=== PATIENT | female | born 1985 | race Two or more races ===

== ENCOUNTER 2016-05-15 20:06 | Emergency (ER) | payer BC, MEDICAID, OTHER ==
[~2016-05-15 20:06] MED LIST: OXYB5TAB4 OR; VICO5TAB OR
[2016-05-15] MEDS ORDERED: KETOROLAC 30 MG/ML VIAL (J1885) As Ordered ONE (20:42)
[2016-05-15] MEDS ORDERED: ONDANSETRON 4MG/2ML VIAL (J2405) As Ordered ONE (20:42)
[2016-05-15 20:45] LABS: CONTROL LINE UCG INT CTR LINE PRESENT
[2016-05-15 21:07] LABS: BASO % 0.5 % (0.0-1.0); EOS # 0.6 K/mm3 (0.0-0.50); EOS % 6.8 % (0.0-3.0); LARGE UNSTAINED CELL # 0.3 K/mm3 (0.0-0.4); LARGE UNSTAINED CELL % 3.4 % (0.0-4.0); LYMPH # 3.1 K/mm3 (1.5-6.5); LYMPH % 34.1 % (24.0-44.0); MEAN CORPUSCULAR HEMOGLOBIN 31.9 pg (27.0-33.0); MEAN CORPUSCULAR HGB CONC 35.6 g/dl (32.0-36.5); MEAN CORPUSCULAR VOLUME 89.6 fl (80.0-96.0); MONO # 0.7 K/mm3 (0.0-0.8); MONO % 7.5 % (0.0-5.0); NEUTROPHILS # 4.3 K/mm3 (1.8-7.7); NEUTROPHILS % 47.7 % (36.0-66.0); PLATELET COUNT, AUTOMATED 302 k/mm3 (150-450); RED CELL DISTRIBUTION WIDTH 12.2 % (11.5-14.5)
[2016-05-15 21:26] LABS: ALBUMIN 3.9 GM/DL (3.2-5.2); ALBUMIN/GLOBULIN RATIO 1.11 (1.00-1.93); ALKALINE PHOSPHATASE 74 U/L (45-117); ALT/SGPT 31 U/L (12-78); ANION GAP 8 MEQ/L (8-16); AST/SGOT 23 U/L (15-37); BILIRUBIN,DIRECT < 0.1 MG/DL (0.0-0.2); BILIRUBIN,TOTAL 0.3 MG/DL (0.2-1.0); BLOOD UREA NITROGEN 14 MG/DL (7-18); CALCIUM LEVEL 8.9 MG/DL (8.5-10.1); CARBON DIOXIDE LEVEL 28 MEQ/L (21-32); CHLORIDE LEVEL 106 MEQ/L (98-107); CREATININE FOR GFR 0.92 MG/DL (0.55-1.02); GLOMERULAR FILTRATION RATE > 60.0 (>60); GLUCOSE, FASTING 128 MG/DL (70-105); SODIUM LEVEL 142 MEQ/L (136-145); TOTAL PROTEIN 7.4 GM/DL (6.4-8.2)
[2016-05-15] MEDS ORDERED: MORPHINE 4 MG/ML 1ML SYRINGE As Ordered ONE (21:29)
[2016-05-15] MEDS ORDERED: TAMSULOSIN 0.4 MG CAP As Ordered ONE (21:29)
[2016-05-15] MEDS ORDERED: HYDROmorphone HCL 1 MG/ML SYRINGE (J1170) As Ordered ONE (22:18)
[2016-05-15] MEDS ORDERED: OXYCODONE/APAP 5MG/325MG(BULK) 1 TAB TAB As Ordered ONE (22:43)
[2016-05-15] MEDS ORDERED: ONDANSETRON 4 MG ORAL DISINTEGRATING TAB (S0181) As Ordered ONE (22:43)
--- NOTE | 2016-05-15 22:54 | EDDOCDS ---
Physician Documentation [facility] Name: Olive Peterson Age: 30 yrs Sex: Female : 1985 Arrival Date: 05/15/2016 Time: 20:06 Bed I7 Private MD: Anusha Tan M. Disposition: 05/15/16 22:41 Discharged to Home/Self Care. Impression: Calculus of ureter - distal right ureter, 3mm . - Condition is Stable. - Discharge Instructions: Kidney Stones. - Prescriptions for Percocet 5- 325 mg Oral Tablet - take 1 tablet by ORAL route every 6 hours As needed MDD: 4 tabs; 20 tablet. Flomax 0.4 mg Oral Capsule, Sust. Release 24 hr - take 1 capsule by ORAL route once daily 1/2 hour following the same meal each day; 30 capsule. ZOFRAN ODT 4 mg - dissolve 1 tablet by ORAL route 4 times per day As needed do not chew, do not swallow whole; 10 tablet. - Work Release Form - 2 day, Medication Reconciliation, Local Pharmacy Hours form. - Follow up: Meet Levin; When: Call to arrange an appointment; Reason: Recheck today's complaints, Continuance of care. - Problem is new. - Symptoms are unchanged. Historical: - Allergies: no known allergies; - Home Meds: 1. multivitamin Oral tab daily - PMHx: Kidney stones; PCOS; - PSHx: Lithotripsy; - Social history: Smoking status: Patient uses tobacco products, light tobacco smoker. No barriers to communication noted, The patient speaks fluent [place], Speaks appropriately for age. - Family history: Not pertinent. - : The pt / caregiver states he / she is not on anticoagulants. Home medication list is obtained from the patient. 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 9 in. (175.26 cm); Pain 10/10; 21:58 BP 145 / 108; Pulse 99; Resp 18; Temp 97.9; Pulse Ox 92% ; slm 22:50 BP 166 / 97; Pulse 92; Resp 18; Temp 98.5; Pulse Ox 93% ; Pain 4/10; slm 22:50 Pain 4/10; slm 20:07 Body Mass Index 40.61 (124.74 kg, 175.26 cm) [facility] MDM: 20:11 CBC with Diff Ordered. EDMS 20:11 MED Profile Ordered. EDMS 20:11 Urinalysis Ordered. EDMS 20:11 Urine Culture Ordered. EDMS 20:11 CT ABD & PELVIS: No Contrast Ordered. EDMS 20:32 IV Saline Lock ordered. mo1 20:32 NS 0.9% 1000 ml IV at bolus once ordered. mo1 20:32 Ondansetron 4 mg IVP once ordered. mo1 20:32 ketorolac 30 mg IVP once ordered. mo1 20:33 UCG- In Lab Ordered. EDMS 20:37 LIVER PROFILE Ordered. EDMS 21:03 UCG- In Lab Reviewed. mo1 21:04 Urinalysis Reviewed. mo1 21:21 morphine 4 mg IVP once ordered. mo1 21:21 Tamsulosin Extended Release 24 hour Capsule 0.4 mg PO once ordered. mo1 21:39 LIVER PROFILE Reviewed. mo1 21:40 MED Profile Reviewed. mo1 21:40 CBC with Diff Reviewed. mo1 22:11 Dilaudid - HYDROmorphone 1 mg IVP once ordered. mo1 22:40 oxyCODONE-acetaminophen 4 pack 5 mg-325 mg 1 packets PO once; Dispense with pt, take as mo1 per instruction on package ordered. 22:40 Ondansetron ODT Oral Disintegrating Tablet 4 mg PO once; [please give to go home] mo1 ordered. Administered Medications: 20:47 Drug: Ondansetron 4 mg [ondansetron HCl 2 mg/mL intravenous solution (2 mL)] Route: mcp IVP; Site: right antecubital; 20:47 Drug: ketorolac 30 mg [ketorolac 30 mg/mL (1 mL) injection solution (1 mL)] Route: IVP; mcp Site: right antecubital; 20:48 Drug: NS 0.9% 1000 ml [sodium chloride 0.9 % intravenous solution] Route: IV; Rate: mcp bolus; Site: right antecubital; 22:52 Follow up: IV Status: Completed infusion slm 21:34 Drug: morphine 4 mg [morphine 4 mg/mL intravenous cartridge (1 mL)] Route: IVP; Site: [facility] right antecubital; 21:34 Drug: Tamsulosin 0.4 mg [tamsulosin 0.4 mg capsule (1 caps)] Route: PO; mcp 22:23 Drug: Dilaudid - HYDROmorphone 1 mg [hydromorphone 1 mg/mL injection syringe (1 mL)] [facility] [place]: [place]P; Site: right antecubital; 22:50 Follow up: Pain 06/29 Adult slm 22:49 Drug: oxyCODONE-acetaminophen 4 pack 1 packets [oxycodone-acetaminophen 5 mg-325 mg slm tablet (1 tabs)] {Co-Signature: [facility] (Marnie Sainz RN).} Route: PO; 22:49 Drug: Ondansetron ODT 4 mg [ondansetron 4 mg disintegrating tablet (1 tabs)] {Note: slm home use.} Route: PO; Signatures: Dispatcher [employer] EDFaustina Curiel RN RN joKendrick Nevarez PA PA mo1 Josefina Fernandes,LEARN TO SWIM INSTRUCTOR LEARN TO SWIM INSTRUCTOR Marnie Campos RN, mcp, Mandy RN [facility] Marnie Sainz RN [facility] The chart was reviewed and I authenticate all verbal orders and agree with the evaluation and treatment provided.Corrections: (The following items were deleted from the chart) 20:37 20:33 LIVER PROFILE+LAB ordered. EDMS EDMS MTDD
--- NOTE | 2016-05-15 22:54 | EDDOCDS ---
Nurse's Notes [facility] Name: Olive Peterson Age: 30 yrs Sex: Female : 1985 Arrival Date: 05/15/2016 Time: 20:06 Bed I7 / 29 Private MD: Anusha Tan M. Diagnosis: Calculus of ureter-distal right ureter, 3mm Presentation: 05/15 20:14 Presenting complaint: Patient states: right flank and abdominal pain since yesterday. jo3 Has been getting progressively worse. Acute neurological deficits are not present. Mechanism of Injury: No Mechanism of Injury. Adult Sepsis Screening: The patient does not have new or worsening altered mentation. Patient's respiratory rate is less than 22. Systolic blood pressure is greater than 100. Patient has a qSOFA score of 0- Negative Sepsis Screen. Suicide/Homicide risk assessment- the patient denies having any suicidal and/or homicidal ideations and does not present with any other emotional, behavioral or mental health complaints. Status: Patient is not a client services administrator or dependent. Transition of care: patient was not received from another setting of care. 20:14 Acuity: MYNOR Level 3 jo3 20:14 Method Of Arrival: Walkin/Carried/Asstd jo3 Triage Assessment: 20:15 General: Appears uncomfortable, Behavior is cooperative, drowsy, pleasant. Pain: Pain jo3 currently is 10 out of 10 on a pain scale. HIV screening NA for this visit Offered previously. Neurological: Level of Consciousness is awake, alert, Oriented to person, place, time. Respiratory: Airway is patent Respiratory effort is even, unlabored. Derm: Skin is pink, warm & dry. 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 multivitamin Oral tab daily - PMHx: Kidney stones; PCOS; - PSHx: Lithotripsy; - Social history: Smoking status: Patient uses tobacco products, light tobacco smoker. No barriers to communication noted, The patient speaks fluent German, Speaks appropriately for age. - Family history: Not pertinent. - : The pt / caregiver states he / she is not on anticoagulants. Home medication list is obtained from the patient. 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 Screenin:48 Screening information is obtained from the patient. Fall risk: No risks identified. mcp Assistance ADL's: requires no assistance with activities of daily living. Abuse/DV Screen: The patient / caregiver reports he/she is: not in a situation that causes fear, pain or injury. Nutritional screening: No deficits noted. Advance Directives: There is no active DNR order. home support is adequate. Assessment: 20:48 General: Appears uncomfortable, Behavior is cooperative, crying. Pain: Location: right mcp flank Pain currently is 10 out of 10 on a pain scale. Neurological: No deficits noted. Respiratory: Airway is patent Respiratory effort is even, unlabored. Derm: Skin is pink, warm & dry. Musculoskeletal: Circulation, motion, and sensation intact. 22:51 Reassessment: Patient appears in no apparent distress at this time. Patient states [facility] symptoms have improved. Vital Signs: 20:07 BP 162 / 118; Pulse 122; Resp 18; Temp 99; Pulse Ox 94% ; Weight 124.74 kg; Height 5 m ft. 9 in. (175.26 cm); Pain 10/10; 21:58 BP 145 / 108; Pulse 99; Resp 18; Temp 97.9; Pulse Ox 92% ; slm 22:50 BP 166 / 97; Pulse 92; Resp 18; Temp 98.5; Pulse Ox 93% ; Pain 4/10; slm 22:50 Pain 4/10; slm 20:07 Body Mass Index 40.61 (124.74 kg, 175.26 cm) [facility] Vitals: 20:07 Log In Time: May 15, 2016 at 20:07. [facility] ED Course: 20:06 Patient visited by Pati Partida, Manager Program. [facility] 20:06 Anusha Tan is Private Physician. jl 20:06 Patient moved to Waiting jlm 20:08 Patient moved to Pre RCE jlm 20:14 Triage Initiated jo3 20:16 Patient visited by Faustina Tatum RN. jo3 20:18 Kendrick Vieira PA is PHCP. mo1 20:18 Phillip Chong DO is Attending Physician. mo1 20:18 Patient moved to jo3 20:19 Patient visited by Kendrick Vieira PA. mo1 20:26 Urinalysis Sent. jb5 20:26 Urine Culture Sent. jb5 20:41 MED Profile Sent. jb5 20:41 CBC with Diff Sent. jb5 20:44 LIVER PROFILE Sent. jb5 20:49 Patient visited by Marnie Sainz RN. [facility] 20:49 The patient / caregiver is instructed regarding the plan of care and ED course. Patient [facility] has correct armband on for positive identification. Placed in gown. Bed in low position. Call light in reach. Adult w/ patient. 20:49 Inserted saline lock: 20 gauge in right antecubital area and blood collected. The [facility] patient tolerated the procedure well. Labs drawn. (by ED staff). Sent per order to lab. 21:54 Patient visited by Yoli Vega PCA. jb5 22:41 Meet Levin is Referral Physician. [facility] 22:50 Josefina Fernandes LPN is Primary Nurse. slm 22:51 Discontinued lock intact, bleeding controlled, pressure dressing applied, No slm redness/swelling at site. No procedures done that require assistance. 22:52 Patient visited by Josefina Fernandes LPN. slm Administered Medications: 20:47 Drug: Ondansetron 4 mg [ondansetron HCl 2 mg/mL intravenous solution (2 mL)] Route: mcp IVP; Site: right antecubital; 20:47 Drug: ketorolac 30 mg [ketorolac 30 mg/mL (1 mL) injection solution (1 mL)] Route: IVP; [facility] Site: right antecubital; 20:48 Drug: NS 0.9% 1000 ml [sodium chloride 0.9 % intravenous solution] Route: IV; Rate: mcp bolus; Site: right antecubital; 22:52 Follow up: IV Status: Completed infusion sl 21:34 Drug: morphine 4 mg [morphine 4 mg/mL intravenous cartridge (1 mL)] Route: IVP; Site: [facility] right antecubital; 21:34 Drug: Tamsulosin 0.4 mg [tamsulosin 0.4 mg capsule (1 caps)] Route: PO; [facility] 22:23 Drug: Dilaudid - HYDROmorphone 1 mg [hydromorphone 1 mg/mL injection syringe (1 mL)] [facility] [place]: [place]P; Site: right antecubital; 22:50 Follow up: Pain 06/29 Adult slm 22:49 Drug: oxyCODONE-acetaminophen 4 pack 1 packets [oxycodone-acetaminophen 5 mg-325 mg slm tablet (1 tabs)] {Co-Signature: mcp (Marnie Sainz RN).} Route: PO; 22:49 Drug: Ondansetron ODT 4 mg [ondansetron 4 mg disintegrating tablet (1 tabs)] {Note: slm home use.} Route: PO; Order Results: Lab Order: CBC with Diff; SPEC'M 05/15/16 20:39 Test: WHITE BLOOD COUNT; Value: 9.0; Range: 4.0-10.0; Units: K/mm3; Status: F Test: RED BLOOD COUNT; Value: 4.66; Range: 4.00-5.40; Units: M/mm3; Status: F Test: HEMOGLOBIN; Value: 14.9; Range: 12.0-16.0; Units: g/dl; Status: F Test: HEMATOCRIT; Value: 41.8; Range: 36.0-47.0; Units: %; Status: F Test: MEAN CORPUSCULAR VOLUME; Value: 89.6; Range: 80.0-96.0; Units: fl; Status: F Test: MEAN CORPUSCULAR HEMOGLOBIN; Value: 31.9; Range: 27.0-33.0; Units: pg; Status: F Test: MEAN CORPUSCULAR HGB CONC; Value: 35.6; Range: 32.0-36.5; Units: g/dl; Status: F Test: RED CELL DISTRIBUTION WIDTH; Value: 12.2; Range: 11.5-14.5; Units: %; Status: F Test: PLATELET COUNT, AUTOMATED; Value: 302; Range: 150-450; Units: k/mm3; Status: F Test: NEUTROPHILS %; Value: 47.7; Range: 36.0-66.0; Units: %; Status: F Test: LYMPH %; Value: 34.1; Range: 24.0-44.0; Units: %; Status: F Test: MONO %; Value: 7.5; Range: 0.0-5.0; Abnormal: Above high normal; Units: %; Status: F Test: EOS %; Value: 6.8; Range: 0.0-3.0; Abnormal: Above high normal; Units: %; Status: F Test: BASO %; Value: 0.5; Range: 0.0-1.0; Units: %; Status: F Test: LARGE UNSTAINED CELL %; Value: 3.4; Range: 0.0-4.0; Units: %; Status: F Test: NEUTROPHILS #; Value: 4.3; Range: 1.8-7.7; Units: K/mm3; Status: F Test: LYMPH #; Value: 3.1; Range: 1.5-6.5; Units: K/mm3; Status: F Test: MONO #; Value: 0.7; Range: 0.0-0.8; Units: K/mm3; Status: F Test: EOS #; Value: 0.6; Range: 0.0-0.50; Abnormal: Above high normal; Units: K/mm3; Status: F Test: BASO #; Value: 0.0; Range: 0.0-0.2; Units: K/mm3; Status: F Test: LARGE UNSTAINED CELL #; Value: 0.3; Range: 0.0-0.4; Units: K/mm3; Status: F Lab Order: MED Profile; SPEC'M 05/15/16 20:39 Test: GLUCOSE, FASTING; Value: 128; Range: 70-105; Abnormal: Above high normal; Units: MG/DL; Status: F Test: BLOOD UREA NITROGEN; Value: 14; Range: 7-18; Units: MG/DL; Status: F Test: CREATININE FOR GFR; Value: 0.92; Range: 0.55-1.02; Units: MG/DL; Status: F Test: GLOMERULAR FILTRATION RATE; Value: > 60.0; Range: >60; Status: F Test: SODIUM LEVEL; Value: 142; Range: 136-145; Units: MEQ/L; Status: F Test: POTASSIUM SERUM; Value: 4.0; Range: 3.5-5.1; Units: MEQ/L; Status: F Test: CHLORIDE LEVEL; Value: 106; Range: 98-107; Units: MEQ/L; Status: F Test: CARBON DIOXIDE LEVEL; Value: 28; Range: 21-32; Units: MEQ/L; Status: F Test: ANION GAP; Value: 8; Range: 8-16; Units: MEQ/L; Status: F Test: CALCIUM LEVEL; Value: 8.9; Range: 8.5-10.1; Units: MG/DL; Status: F Test Note: ; Units are mL/min/1.73 m2 Chronic Kidney Disease Staging per NKF: Stage I & II GFR >=60 Normal to Mildly Decreased Stage III GFR 30-59 Moderately Decreased Stage IV GFR 15-29 Severely Decreased Stage V GFR <15 Very Little GFR Left ESRD GFR <15 on ENVIRONMENTAL OFFICER Lab Order: Urinalysis; SPEC'M 05/15/16 20:27 Test: APPEARANCE, URINE; Value: CLOUDY; Range: CLEAR; Abnormal: Above high normal; Status: F Test: COLOR, URINE; Value: YELLOW; Range: YELLOW; Status: F Test: PH,URINE; Value: 6.0; Range: 5.0-9.0; Units: UNITS; Status: F Test: SPECIFIC GRAVITY URINE AUTO; Value: 1.019; Range: 1.002-1.035; Status: F Test: PROTEIN, URINE AUTO; Value: 2+; Range: NEGATIVE; Abnormal: Above high normal; Units: mg/dL; Status: F Test: GLUCOSE, URINE (UA) AUTO; Value: NEGATIVE; Range: NEGATIVE; Units: mg/dL; Status: F Test: KETONE, URINE AUTO; Value: NEGATIVE; Range: NEGATIVE; Units: mg/dL; Status: F Test: UROBILINOGEN, URINE AUTO; Value: 0.2; Range: 0.0-2.0; Units: mg/dL; Status: F Test: BILIRUBIN, URINE AUTO; Value: NEGATIVE; Range: NEGATIVE; Status: F Test: NITRITE, URINE AUTO; Value: NEGATIVE; Range: NEGATIVE; Status: F Test: LEUKOCYTE ESTERASE, URINE AUTO; Value: NEGATIVE; Range: NEGATIVE; Status: F Test: BLOOD, URINE BLOOD; Value: 3+; Range: NEGATIVE; Abnormal: Above high normal; Status: F Test: WBC, URINE AUTO; Value: 6; Range: 0-3; Abnormal: Above high normal; Units: /HPF; Status: F Test: RBC, URINE AUTO; Value: TNTC; Range: 0-3; Abnormal: Above high normal; Units: /HPF; Status: F Test: BACTERIA, URINE AUTO; Value: NEGATIVE; Range: NEGATIVE; Status: F Test: SQUAMOUS EPITHELIAL CELL UR AU; Value: 13; Range: 0-6; Units: /HPF; Status: F Test: HYALINE CAST, URINE AUTO; Value: 0; Range: 0-1; Units: /LPF; Status: F Lab Order: UCG- In Lab; SPEC'M 05/15/16 20:20 Test: URINE PREG TEST; Value: NEGATIVE; Range: NEGATIVE; Status: F Lab Order: LIVER PROFILE; SPEC'M 05/15/16 20:39 Test: AST/SGOT; Value: 23; Range: 15-37; Units: U/L; Status: F Test: ALT/SGPT; Value: 31; Range: 12-78; Units: U/L; Status: F Test: ALKALINE PHOSPHATASE; Value: 74; Range: 45-117; Units: U/L; Status: F Test: BILIRUBIN,TOTAL; Value: 0.3; Range: 0.2-1.0; Units: MG/DL; Status: F Test: BILIRUBIN,DIRECT; Value: < 0.1; Range: 0.0-0.2; Units: MG/DL; Status: F Test: TOTAL PROTEIN; Value: 7.4; Range: 6.4-8.2; Units: GM/DL; Status: F Test: ALBUMIN; Value: 3.9; Range: 3.2-5.2; Units: GM/DL; Status: F Test: ALBUMIN/GLOBULIN RATIO; Value: 1.11; Range: 1.00-1.93; Status: F Outcome: 22:41 Discharge ordered by Provider. mo1 22:51 Discharge Assessment: Patient awake, alert and oriented x 3. No cognitive and/or slm functional deficits noted. Patient verbalized understanding of disposition instructions. patient administered narcotics - yes. Pt provided with safe discharge. The following High Risk Discharge criteria are identified: None. Discharged to home ambulatory, with parent. Condition: good Condition: improved. Discharge instructions given to patient, Instructed on discharge instructions, follow up and referral plans. medication usage, no driving heavy equipment, Demonstrated understanding of instructions, medications, Pt was receptive of discharge instructions/ teaching. Prescriptions given X 3. CT Study completed. Property :Personal belongings accompany Pt. 22:53 Patient left the ED. slm Signatures: Marnie Sainz RN RN Yoli Santamaria PCA PCA jb5 Faustina Tatum,RN RN jo3 Kendrick Vieira PA PA mo1 Josefina Fernandes,MIDDLEWARE SYSTEMS ARCHITECT MIDDLEWARE SYSTEMS ARCHITECT slm Pati Partida, Manager Program Unit Fabiola Strange,RN RN [facility] [place] Marnie Sainz RN, mcp MTDD
--- NOTE | 2016-05-16 18:50 | REP ---
Clinical: Right flank pain. Comparison: 06/10/2012. Findings: Mild acute right-sided obstructive uropathy with hydroureteronephrosis and periureteral stranding secondary to a 3 mm calculus in the distal right ureter approaching the ureterovesicle junction (images 134 - 135). 1 mm nonobstructing right renal calculus also identified. The left kidney/ureter and collapsed bladder appear normal. Liver, spleen, pancreas, gallbladder, and bilateral adrenal glands are normal for noncontrast evaluation. The enteric system is without obstruction or acute inflammatory process and a normal terminal ileum and appendix are identified in the right lower quadrant. Pelvis demonstrates normal uterus with physiologic cystic changes to the bilateral adnexa. No ascites. No free air. No intraperitoneal or retroperitoneal adenopathy. Abdominal aorta normal without aneurysm. Musculoskeletal structures are intact. Lung bases clear. Impression: 1. Mild acute right-sided obstructive uropathy with 3 mm calculus in the distal right ureter approaching the ureterovesicle junction. 1 mm nonobstructing right renal calculus. Left kidney and collapsed bladder are normal. 2. Physiologic cystic changes to the bilateral ovaries. Signed by Gregory Morgan MD 05/16/2016 06:41 P
--- NOTE | 2016-05-17 23:54 | EDDOCDS ---
Physician Documentation [facility] Name: Olive Peterson Age: 30 yrs Sex: Female : 1985 Arrival Date: 05/15/2016 Time: 20:06 Bed I7 Private MD: Anusha Tan M. Disposition: 05/15/16 22:41 Discharged to Home/Self Care. Impression: Calculus of ureter - distal right ureter, 3mm . - Condition is Stable. - Discharge Instructions: Kidney Stones. - Prescriptions for Percocet 5- 325 mg Oral Tablet - take 1 tablet by ORAL route every 6 hours As needed MDD: 4 tabs; 20 tablet. Flomax 0.4 mg Oral Capsule, Sust. Release 24 hr - take 1 capsule by ORAL route once daily 1/2 hour following the same meal each day; 30 capsule. ZOFRAN ODT 4 mg - dissolve 1 tablet by ORAL route 4 times per day As needed do not chew, do not swallow whole; 10 tablet. - Work Release Form - 2 day, Medication Reconciliation, Local Pharmacy Hours form. - Follow up: Meet Levin; When: Call to arrange an appointment; Reason: Recheck today's complaints, Continuance of care. - Problem is new. - Symptoms are unchanged. Historical: - Allergies: no known allergies; - Home Meds: 1. multivitamin Oral tab daily - PMHx: Kidney stones; PCOS; - PSHx: Lithotripsy; - Social history: Smoking status: Patient uses tobacco products, light tobacco smoker. No barriers to communication noted, The patient speaks fluent Armenian, Speaks appropriately for age. - Family history: Not pertinent. - : The pt / caregiver states he / she is not on anticoagulants. Home medication list is obtained from the patient. 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 9 in. (175.26 cm); Pain 10/10; 21:58 BP 145 / 108; Pulse 99; Resp 18; Temp 97.9; Pulse Ox 92% ; slm 22:50 BP 166 / 97; Pulse 92; Resp 18; Temp 98.5; Pulse Ox 93% ; Pain 4/10; slm 22:50 Pain 4/10; slm 20:07 Body Mass Index 40.61 (124.74 kg, 175.26 cm) [facility] MDM: 20:11 CBC with Diff Ordered. EDMS 20:11 MED Profile Ordered. EDMS 20:11 Urinalysis Ordered. EDMS 20:11 Urine Culture Ordered. EDMS 20:11 CT ABD & PELVIS: No Contrast Ordered. EDMS 20:32 IV Saline Lock ordered. mo1 20:32 NS 0.9% 1000 ml IV at bolus once ordered. mo1 20:32 Ondansetron 4 mg IVP once ordered. mo1 20:32 ketorolac 30 mg IVP once ordered. mo1 20:33 UCG- In Lab Ordered. EDMS 20:37 LIVER PROFILE Ordered. EDMS 21:03 UCG- In Lab Reviewed. mo1 21:04 Urinalysis Reviewed. mo1 21:21 morphine 4 mg IVP once ordered. mo1 21:21 Tamsulosin Extended Release 24 hour Capsule 0.4 mg PO once ordered. mo1 21:39 LIVER PROFILE Reviewed. mo1 21:40 MED Profile Reviewed. mo1 21:40 CBC with Diff Reviewed. mo1 22:11 Dilaudid - HYDROmorphone 1 mg IVP once ordered. mo1 22:40 oxyCODONE-acetaminophen 4 pack 5 mg-325 mg 1 packets PO once; Dispense with pt, take as mo1 per instruction on package ordered. 22:40 Ondansetron ODT Oral Disintegrating Tablet 4 mg PO once; [please give to go home] mo1 ordered. 05/16 08:17 T-Sheet-- Draft Copy was scanned into Event[employer] and attached to record. [facility] Administered Medications: 05/15 20:47 Drug: Ondansetron 4 mg [ondansetron HCl 2 mg/mL intravenous solution (2 mL)] Route: mcp IVP; Site: right antecubital; 20:47 Drug: ketorolac 30 mg [ketorolac 30 mg/mL (1 mL) injection solution (1 mL)] Route: IVP; mcp Site: right antecubital; 20:48 Drug: NS 0.9% 1000 ml [sodium chloride 0.9 % intravenous solution] Route: IV; Rate: mcp bolus; Site: right antecubital; 22:52 Follow up: IV Status: Completed infusion sl 21:34 Drug: morphine 4 mg [morphine 4 mg/mL intravenous cartridge (1 mL)] Route: IVP; Site: [facility] right antecubital; 21:34 Drug: Tamsulosin 0.4 mg [tamsulosin 0.4 mg capsule (1 caps)] Route: PO; [facility] 22:23 Drug: Dilaudid - HYDROmorphone 1 mg [hydromorphone 1 mg/mL injection syringe (1 mL)] [facility] [place] Route: IVP; Site: right antecubital; 22:50 Follow up: Pain 06/29 Adult sl 22:49 Drug: oxyCODONE-acetaminophen 4 pack 1 packets [oxycodone-acetaminophen 5 mg-325 mg slm tablet (1 tabs)] {Co-Signature: [facility] (Marnie Sainz RN).} Route: PO; 22:49 Drug: Ondansetron ODT 4 mg [ondansetron 4 mg disintegrating tablet (1 tabs)] {Note: slm home use.} Route: PO; Signatures: Dispatcher [employer] EDFaustina Curiel RN RN Kendrick Boss PA PA mo1 Josefina Fernandes LPN LPN slm Hoffert, Sarah seh Peters, Mary RN mcp Booth, Mandy RN [facility] Mary Peters RN [facility] The chart was reviewed and I authenticate all verbal orders and agree with the evaluation and treatment provided.Corrections: (The following items were deleted from the chart) 20:37 20:33 LIVER PROFILE+LAB ordered. EDPR EDPR Attachments: 05/16 08:17 T-Sheet-- Draft Copy [facility] Chart Complete MTDD
--- NOTE | 2016-05-17 23:54 | EDDOCDS ---
Physician Documentation [facility] Name: Olive Peterson Age: 30 yrs Sex: Female : 1985 Arrival Date: 05/15/2016 Time: 20:06 Bed I7 Private MD: Anusha Tan M. Disposition: 05/15/16 22:41 Discharged to Home/Self Care. Impression: Calculus of ureter - distal right ureter, 3mm . - Condition is Stable. - Discharge Instructions: Kidney Stones. - Prescriptions for Percocet 5- 325 mg Oral Tablet - take 1 tablet by ORAL route every 6 hours As needed MDD: 4 tabs; 20 tablet. Flomax 0.4 mg Oral Capsule, Sust. Release 24 hr - take 1 capsule by ORAL route once daily 1/2 hour following the same meal each day; 30 capsule. ZOFRAN ODT 4 mg - dissolve 1 tablet by ORAL route 4 times per day As needed do not chew, do not swallow whole; 10 tablet. - Work Release Form - 2 day, Medication Reconciliation, Local Pharmacy Hours form. - Follow up: Meet Levin; When: Call to arrange an appointment; Reason: Recheck today's complaints, Continuance of care. - Problem is new. - Symptoms are unchanged. Historical: - Allergies: no known allergies; - Home Meds: 1. multivitamin Oral tab daily - PMHx: Kidney stones; PCOS; - PSHx: Lithotripsy; - Social history: Smoking status: Patient uses tobacco products, light tobacco smoker. No barriers to communication noted, The patient speaks fluent Thai, Speaks appropriately for age. - Family history: Not pertinent. - : The pt / caregiver states he / she is not on anticoagulants. Home medication list is obtained from the patient. 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 9 in. (175.26 cm); Pain 10/10; 21:58 BP 145 / 108; Pulse 99; Resp 18; Temp 97.9; Pulse Ox 92% ; slm 22:50 BP 166 / 97; Pulse 92; Resp 18; Temp 98.5; Pulse Ox 93% ; Pain 4/10; slm 22:50 Pain 4/10; slm 20:07 Body Mass Index 40.61 (124.74 kg, 175.26 cm) [facility] MDM: 20:11 CBC with Diff Ordered. EDMS 20:11 MED Profile Ordered. EDMS 20:11 Urinalysis Ordered. EDMS 20:11 Urine Culture Ordered. EDMS 20:11 CT ABD & PELVIS: No Contrast Ordered. EDMS 20:32 IV Saline Lock ordered. mo1 20:32 NS 0.9% 1000 ml IV at bolus once ordered. mo1 20:32 Ondansetron 4 mg IVP once ordered. mo1 20:32 ketorolac 30 mg IVP once ordered. mo1 20:33 UCG- In Lab Ordered. EDMS 20:37 LIVER PROFILE Ordered. EDMS 21:03 UCG- In Lab Reviewed. mo1 21:04 Urinalysis Reviewed. mo1 21:21 morphine 4 mg IVP once ordered. mo1 21:21 Tamsulosin Extended Release 24 hour Capsule 0.4 mg PO once ordered. mo1 21:39 LIVER PROFILE Reviewed. mo1 21:40 MED Profile Reviewed. mo1 21:40 CBC with Diff Reviewed. mo1 22:11 Dilaudid - HYDROmorphone 1 mg IVP once ordered. mo1 22:40 oxyCODONE-acetaminophen 4 pack 5 mg-325 mg 1 packets PO once; Dispense with pt, take as mo1 per instruction on package ordered. 22:40 Ondansetron ODT Oral Disintegrating Tablet 4 mg PO once; [please give to go home] mo1 ordered. 05/16 08:17 T-Sheet-- Draft Copy was scanned into [employer] and attached to record. [facility] Administered Medications: 05/15 20:47 Drug: Ondansetron 4 mg [ondansetron HCl 2 mg/mL intravenous solution (2 mL)] Route: mcp IVP; Site: right antecubital; 20:47 Drug: ketorolac 30 mg [ketorolac 30 mg/mL (1 mL) injection solution (1 mL)] Route: IVP; mcp Site: right antecubital; 20:48 Drug: NS 0.9% 1000 ml [sodium chloride 0.9 % intravenous solution] Route: IV; Rate: mcp bolus; Site: right antecubital; 22:52 Follow up: IV Status: Completed infusion sl 21:34 Drug: morphine 4 mg [morphine 4 mg/mL intravenous cartridge (1 mL)] Route: IVP; Site: [facility] right antecubital; 21:34 Drug: Tamsulosin 0.4 mg [tamsulosin 0.4 mg capsule (1 caps)] Route: PO; [facility] 22:23 Drug: Dilaudid - HYDROmorphone 1 mg [hydromorphone 1 mg/mL injection syringe (1 mL)] [facility] Route: IVP; Site: right antecubital; 22:50 Follow up: Pain 06/29 Adult sl 22:49 Drug: oxyCODONE-acetaminophen 4 pack 1 packets [oxycodone-acetaminophen 5 mg-325 mg slm tablet (1 tabs)] {Co-Signature: [facility] (Marnie Sainz RN).} Route: PO; 22:49 Drug: Ondansetron ODT 4 mg [ondansetron 4 mg disintegrating tablet (1 tabs)] {Note: slm home use.} Route: PO; Signatures: Dispatcher [employer] EDFaustina Curiel RN RN Kendrick Boss PA PA mo1 Josefina Fernandes LPN LPN slm Hoffert, Sarah seh Peters, Mary RN mcp Booth, Mandy RN mlc Mary Peters RN [facility] The chart was reviewed and I authenticate all verbal orders and agree with the evaluation and treatment provided.Corrections: (The following items were deleted from the chart) 20:37 20:33 LIVER PROFILE+LAB ordered. EDWY EDWY Attachments: 05/16 08:17 T-Sheet-- Draft Copy [facility] Chart Complete MTDD
--- NOTE | 2016-05-17 23:55 | EDDOCDS ---
Nurse's Notes [facility] Name: Olive Peterson Age: 30 yrs Sex: Female : 1985 Arrival Date: 05/15/2016 Time: 20:06 Bed I7 / 29 Private MD: Anusha Tan M. Diagnosis: Calculus of ureter-distal right ureter, 3mm Presentation: 05/15 20:14 Presenting complaint: Patient states: right flank and abdominal pain since yesterday. jo3 Has been getting progressively worse. Acute neurological deficits are not present. Mechanism of Injury: No Mechanism of Injury. Adult Sepsis Screening: The patient does not have new or worsening altered mentation. Patient's respiratory rate is less than 22. Systolic blood pressure is greater than 100. Patient has a qSOFA score of 0- Negative Sepsis Screen. Suicide/Homicide risk assessment- the patient denies having any suicidal and/or homicidal ideations and does not present with any other emotional, behavioral or mental health complaints. 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 Transition of care: patient was not received from another setting of care. 20:14 Acuity: MYNOR Level 3 jo3 20:14 Method Of Arrival: Walkin/Carried/Asstd jo3 Triage Assessment: 20:15 General: Appears uncomfortable, Behavior is cooperative, drowsy, pleasant. Pain: Pain jo3 currently is 10 out of 10 on a pain scale. HIV screening NA for this visit Offered previously. Neurological: Level of Consciousness is awake, alert, Oriented to person, place, time. Respiratory: Airway is patent Respiratory effort is even, unlabored. Derm: Skin is pink, warm & dry. 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 multivitamin Oral tab daily - PMHx: Kidney stones; PCOS; - PSHx: Lithotripsy; - Social history: Smoking status: Patient uses tobacco products, light tobacco smoker. No barriers to communication noted, The patient speaks fluent Bengali, Speaks appropriately for age. - Family history: Not pertinent. - : The pt / caregiver states he / she is not on anticoagulants. Home medication list is obtained from the patient. 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 Screenin:48 Screening information is obtained from the patient. Fall risk: No risks identified. mcp Assistance ADL's: requires no assistance with activities of daily living. Abuse/DV Screen: The patient / caregiver reports he/she is: not in a situation that causes fear, pain or injury. Nutritional screening: No deficits noted. Advance Directives: There is no active DNR order. home support is adequate. Assessment: 20:48 General: Appears uncomfortable, Behavior is cooperative, crying. Pain: Location: right mcp flank Pain currently is 10 out of 10 on a pain scale. Neurological: No deficits noted. Respiratory: Airway is patent Respiratory effort is even, unlabored. Derm: Skin is pink, warm & dry. Musculoskeletal: Circulation, motion, and sensation intact. 22:51 Reassessment: Patient appears in no apparent distress at this time. Patient states [facility] symptoms have improved. Vital Signs: 20:07 BP 162 / 118; Pulse 122; Resp 18; Temp 99; Pulse Ox 94% ; Weight 124.74 kg; Height 5 m ft. 9 in. (175.26 cm); Pain 10/10; 21:58 BP 145 / 108; Pulse 99; Resp 18; Temp 97.9; Pulse Ox 92% ; slm 22:50 BP 166 / 97; Pulse 92; Resp 18; Temp 98.5; Pulse Ox 93% ; Pain 4/10; slm 22:50 Pain 4/10; slm 20:07 Body Mass Index 40.61 (124.74 kg, 175.26 cm) [facility] Vitals: 20:07 Log In Time: May 15, 2016 at 20:07. [facility] ED Course: 20:06 Patient visited by Pati Partida, Sample Paster. [facility] 20:06 Anusha Tan is Private Physician. jl 20:06 Patient moved to Waiting jlm 20:08 Patient moved to Pre RCE jlm 20:14 Triage Initiated jo3 20:16 Patient visited by Faustina Tatum RN. jo3 20:18 Kendrick Vieira PA is PHCP. mo1 20:18 Phillip Chong DO is Attending Physician. mo1 20:18 Patient moved to jo3 20:19 Patient visited by Kendrick Vieira PA. mo1 20:26 Urinalysis Sent. jb5 20:26 Urine Culture Sent. jb5 20:41 MED Profile Sent. jb5 20:41 CBC with Diff Sent. jb5 20:44 LIVER PROFILE Sent. jb5 20:49 Patient visited by Marnie Sainz RN. [facility] 20:49 The patient / caregiver is instructed regarding the plan of care and ED course. Patient [facility] has correct armband on for positive identification. Placed in gown. Bed in low position. Call light in reach. Adult w/ patient. 20:49 Inserted saline lock: 20 gauge in right antecubital area and blood collected. The [facility] patient tolerated the procedure well. Labs drawn. (by ED staff). Sent per order to lab. 21:54 Patient visited by Yoli Vega PCA. jb5 22:41 Meet Levin is Referral Physician. mo 22:50 Josefina Fernandes LPN is Primary Nurse. [facility] 22:51 Discontinued lock intact, bleeding controlled, pressure dressing applied, No slm redness/swelling at site. No procedures done that require assistance. 22:52 Patient visited by Josefina Fernandes LPN. [facility] 05/16 08:17 T-Sheet-- Draft Copy was scanned into [employer] and attached to record. [facility] 19:25 CT ABD & PELVIS: No Contrast Returned. EDMS Administered Medications: 05/15 20:47 Drug: Ondansetron 4 mg [ondansetron HCl 2 mg/mL intravenous solution (2 mL)] Route: [facility] IVP; Site: right antecubital; 20:47 Drug: ketorolac 30 mg [ketorolac 30 mg/mL (1 mL) injection solution (1 mL)] Route: IVP; [facility] Site: right antecubital; 20:48 Drug: NS 0.9% 1000 ml [sodium chloride 0.9 % intravenous solution] Route: IV; Rate: [facility] bolus; Site: right antecubital; 22:52 Follow up: IV Status: Completed infusion [facility] 21:34 Drug: morphine 4 mg [morphine 4 mg/mL intravenous cartridge (1 mL)] Route: IVP; Site: [facility] right antecubital; 21:34 Drug: Tamsulosin 0.4 mg [tamsulosin 0.4 mg capsule (1 caps)] Route: PO; [facility] 22:23 Drug: Dilaudid - HYDROmorphone 1 mg [hydromorphone 1 mg/mL injection syringe (1 mL)] mlc Route: IVP; Site: right antecubital; 22:50 Follow up: Pain 06/29 Adult slm 22:49 Drug: oxyCODONE-acetaminophen 4 pack 1 packets [oxycodone-acetaminophen 5 mg-325 mg slm tablet (1 tabs)] {Co-Signature: mcp (Marnie Sainz RN).} Route: PO; 22:49 Drug: Ondansetron ODT 4 mg [ondansetron 4 mg disintegrating tablet (1 tabs)] {Note: slm home use.} Route: PO; Order Results: Lab Order: CBC with Diff; SPEC'M 05/15/16 20:39 Test: WHITE BLOOD COUNT; Value: 9.0; Range: 4.0-10.0; Units: K/mm3; Status: F Test: RED BLOOD COUNT; Value: 4.66; Range: 4.00-5.40; Units: M/mm3; Status: F Test: HEMOGLOBIN; Value: 14.9; Range: 12.0-16.0; Units: g/dl; Status: F Test: HEMATOCRIT; Value: 41.8; Range: 36.0-47.0; Units: %; Status: F Test: MEAN CORPUSCULAR VOLUME; Value: 89.6; Range: 80.0-96.0; Units: fl; Status: F Test: MEAN CORPUSCULAR HEMOGLOBIN; Value: 31.9; Range: 27.0-33.0; Units: pg; Status: F Test: MEAN CORPUSCULAR HGB CONC; Value: 35.6; Range: 32.0-36.5; Units: g/dl; Status: F Test: RED CELL DISTRIBUTION WIDTH; Value: 12.2; Range: 11.5-14.5; Units: %; Status: F Test: PLATELET COUNT, AUTOMATED; Value: 302; Range: 150-450; Units: k/mm3; Status: F Test: NEUTROPHILS %; Value: 47.7; Range: 36.0-66.0; Units: %; Status: F Test: LYMPH %; Value: 34.1; Range: 24.0-44.0; Units: %; Status: F Test: MONO %; Value: 7.5; Range: 0.0-5.0; Abnormal: Above high normal; Units: %; Status: F Test: EOS %; Value: 6.8; Range: 0.0-3.0; Abnormal: Above high normal; Units: %; Status: F Test: BASO %; Value: 0.5; Range: 0.0-1.0; Units: %; Status: F Test: LARGE UNSTAINED CELL %; Value: 3.4; Range: 0.0-4.0; Units: %; Status: F Test: NEUTROPHILS #; Value: 4.3; Range: 1.8-7.7; Units: K/mm3; Status: F Test: LYMPH #; Value: 3.1; Range: 1.5-6.5; Units: K/mm3; Status: F Test: MONO #; Value: 0.7; Range: 0.0-0.8; Units: K/mm3; Status: F Test: EOS #; Value: 0.6; Range: 0.0-0.50; Abnormal: Above high normal; Units: K/mm3; Status: F Test: BASO #; Value: 0.0; Range: 0.0-0.2; Units: K/mm3; Status: F Test: LARGE UNSTAINED CELL #; Value: 0.3; Range: 0.0-0.4; Units: K/mm3; Status: F Lab Order: MED Profile; [facility]'M 05/15/16 20:39 Test: GLUCOSE, FASTING; Value: 128; Range: 70-105; Abnormal: Above high normal; Units: MG/DL; Status: F Test: BLOOD UREA NITROGEN; Value: 14; Range: 7-18; Units: MG/DL; Status: F Test: CREATININE FOR GFR; Value: 0.92; Range: 0.55-1.02; Units: MG/DL; Status: F Test: GLOMERULAR FILTRATION RATE; Value: > 60.0; Range: >60; Status: F Test: SODIUM LEVEL; Value: 142; Range: 136-145; Units: MEQ/L; Status: F Test: POTASSIUM SERUM; Value: 4.0; Range: 3.5-5.1; Units: MEQ/L; Status: F Test: CHLORIDE LEVEL; Value: 106; Range: 98-107; Units: MEQ/L; Status: F Test: CARBON DIOXIDE LEVEL; Value: 28; Range: 21-32; Units: MEQ/L; Status: F Test: ANION GAP; Value: 8; Range: 8-16; Units: MEQ/L; Status: F Test: CALCIUM LEVEL; Value: 8.9; Range: 8.5-10.1; Units: MG/DL; Status: F Test Note: ; Units are mL/min/1.73 m2 Chronic Kidney Disease Staging per NKF: Stage I & II GFR >=60 Normal to Mildly Decreased Stage III GFR 30-59 Moderately Decreased Stage IV GFR 15-29 Severely Decreased Stage V GFR <15 Very Little GFR Left ESRD GFR <15 on COT[employer] AGENT Lab Order: Urinalysis; SPEC'M 05/15/16 20:27 Test: APPEARANCE, URINE; Value: CLOUDY; Range: CLEAR; Abnormal: Above high normal; Status: F Test: COLOR, URINE; Value: YELLOW; Range: YELLOW; Status: F Test: PH,URINE; Value: 6.0; Range: 5.0-9.0; Units: UNITS; Status: F Test: SPECIFIC GRAVITY URINE AUTO; Value: 1.019; Range: 1.002-1.035; Status: F Test: PROTEIN, URINE AUTO; Value: 2+; Range: NEGATIVE; Abnormal: Above high normal; Units: mg/dL; Status: F Test: GLUCOSE, URINE (UA) AUTO; Value: NEGATIVE; Range: NEGATIVE; Units: mg/dL; Status: F Test: KETONE, URINE AUTO; Value: NEGATIVE; Range: NEGATIVE; Units: mg/dL; Status: F Test: UROBILINOGEN, URINE AUTO; Value: 0.2; Range: 0.0-2.0; Units: mg/dL; Status: F Test: BILIRUBIN, URINE AUTO; Value: NEGATIVE; Range: NEGATIVE; Status: F Test: NITRITE, URINE AUTO; Value: NEGATIVE; Range: NEGATIVE; Status: F Test: LEUKOCYTE ESTERASE, URINE AUTO; Value: NEGATIVE; Range: NEGATIVE; Status: F Test: BLOOD, URINE BLOOD; Value: 3+; Range: NEGATIVE; Abnormal: Above high normal; Status: F Test: WBC, URINE AUTO; Value: 6; Range: 0-3; Abnormal: Above high normal; Units: /HPF; Status: F Test: RBC, URINE AUTO; Value: TNTC; Range: 0-3; Abnormal: Above high normal; Units: /HPF; Status: F Test: BACTERIA, URINE AUTO; Value: NEGATIVE; Range: NEGATIVE; Status: F Test: SQUAMOUS EPITHELIAL CELL UR AU; Value: 13; Range: 0-6; Units: /HPF; Status: F Test: HYALINE CAST, URINE AUTO; Value: 0; Range: 0-1; Units: /LPF; Status: F Lab Order: Urine Culture; SPEC' 05/15/16 20:27 Test: URINE CULTURE; Value: <EXTERNAL COMMENT eCWMed> FULL REPORT IN LAB NOTES (eCW and Medent).; Status: F Test: URINE CULTURE; Value: URINE CULTURE RESULT NO GROWTH CLINICAL SIGNIFICANCE 1 ORGANISM; Status: F Lab Order: UCG- In Lab; SPEC' 05/15/16 20:20 Test: URINE PREG TEST; Value: NEGATIVE; Range: NEGATIVE; Status: F Lab Order: LIVER PROFILE; [facility]' 05/15/16 20:39 Test: AST/SGOT; Value: 23; Range: 15-37; Units: U/L; Status: F Test: ALT/SGPT; Value: 31; Range: 12-78; Units: U/L; Status: F Test: ALKALINE PHOSPHATASE; Value: 74; Range: 45-117; Units: U/L; Status: F Test: BILIRUBIN,TOTAL; Value: 0.3; Range: 0.2-1.0; Units: MG/DL; Status: F Test: BILIRUBIN,DIRECT; Value: < 0.1; Range: 0.0-0.2; Units: MG/DL; Status: F Test: TOTAL PROTEIN; Value: 7.4; Range: 6.4-8.2; Units: GM/DL; Status: F Test: ALBUMIN; Value: 3.9; Range: 3.2-5.2; Units: GM/DL; Status: F Test: ALBUMIN/GLOBULIN RATIO; Value: 1.11; Range: 1.00-1.93; Status: F Radiology Order: CT ABD & PELVIS: No Contrast Test: CT ABD & PELVIS: No Contrast REASON FOR EXAMINATION: Renal colic; Clinical: Right flank pain.; ; Comparison: 06/10/2012.; ; Findings: Mild acute right-sided obstructive uropathy with hydroureteronephrosis; and periureteral stranding secondary to a 3 mm calculus in the distal right; ureter approaching the ureterovesicle junction (images 134 - 135). 1 mm; nonobstructing right renal calculus also identified. The left kidney/ureter and; collapsed bladder appear normal.; ; Liver, spleen, pancreas, gallbladder, and bilateral adrenal glands are normal for; noncontrast evaluation. The enteric system is without obstruction or acute; inflammatory process and a normal terminal ileum and appendix are identified in; the right lower quadrant. Pelvis demonstrates normal uterus with physiologic; cystic changes to the bilateral adnexa. No ascites. No free air. No; intraperitoneal or retroperitoneal adenopathy. Abdominal aorta normal without; aneurysm. Musculoskeletal structures are intact. Lung bases clear.; ; Impression:; 1. Mild acute right-sided obstructive uropathy with 3 mm calculus in the distal; right ureter approaching the ureterovesicle junction. 1 mm nonobstructing right; renal calculus. Left kidney and collapsed bladder are normal.; 2. Physiologic cystic changes to the bilateral ovaries.; ; ; Signed by; Gregory Morgan MD 05/16/2016 06:41 P; Outcome: 22:41 Discharge ordered by Provider. mo1 22:51 Discharge Assessment: Patient awake, alert and oriented x 3. No cognitive and/or slm functional deficits noted. Patient verbalized understanding of disposition instructions. patient administered narcotics - yes. Pt provided with safe discharge. The following High Risk Discharge criteria are identified: None. Discharged to home ambulatory, with parent. Condition: good Condition: improved. Discharge instructions given to patient, Instructed on discharge instructions, follow up and referral plans. medication usage, no driving heavy equipment, Demonstrated understanding of instructions, medications, Pt was receptive of discharge instructions/ teaching. Prescriptions given X 3. CT Study completed. Property :Personal belongings accompany Pt. 22:53 Patient left the ED. slm Signatures: Dispatcher [employer] EDMS Marnie Sainz, Yoli Padilla RN, mcp, HEATH JOE jbFaustina Cerna RN RN [id number] Kendrick Vieira PA PA mo1 Josefina Fernandes,ALTAGRACIA NET DEVELOPER slm Pati Partida, Sample Paster Unit Fabiola Strange RN RN mlc Hoffert, Sarah seh Mary Peters RN mcp Chart Complete MTDD
--- NOTE | 2016-05-18 17:10 | EDDOCDS ---
Nurse's Notes [facility] Name: Olive Peterson Age: 30 yrs Sex: Female : 1985 Arrival Date: 05/15/2016 Time: 20:06 Bed I7 / 29 Private MD: Anusha Tan M. Diagnosis: Calculus of ureter-distal right ureter, 3mm Presentation: 05/15 20:14 Presenting complaint: Patient states: right flank and abdominal pain since yesterday. jo3 Has been getting progressively worse. Acute neurological deficits are not present. Mechanism of Injury: No Mechanism of Injury. Adult Sepsis Screening: The patient does not have new or worsening altered mentation. Patient's respiratory rate is less than 22. Systolic blood pressure is greater than 100. Patient has a qSOFA score of 0- Negative Sepsis Screen. Suicide/Homicide risk assessment- the patient denies having any suicidal and/or homicidal ideations and does not present with any other emotional, behavioral or mental health complaints. Status: Patient is not a television servicer or dependent. Transition of care: patient was not received from another setting of care. 20:14 Acuity: MYNOR Level 3 jo3 20:14 Method Of Arrival: Walkin/Carried/Asstd jo3 Triage Assessment: 20:15 General: Appears uncomfortable, Behavior is cooperative, drowsy, pleasant. Pain: Pain jo3 currently is 10 out of 10 on a pain scale. HIV screening NA for this visit Offered previously. Neurological: Level of Consciousness is awake, alert, Oriented to person, place, time. Respiratory: Airway is patent Respiratory effort is even, unlabored. Derm: Skin is pink, warm & dry. 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 multivitamin Oral tab daily - PMHx: Kidney stones; PCOS; - PSHx: Lithotripsy; - Social history: Smoking status: Patient uses tobacco products, light tobacco smoker. No barriers to communication noted, The patient speaks fluent Slovak, Speaks appropriately for age. - Family history: Not pertinent. - : The pt / caregiver states he / she is not on anticoagulants. Home medication list is obtained from the patient. 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 Screenin:48 Screening information is obtained from the patient. Fall risk: No risks identified. mcp Assistance ADL's: requires no assistance with activities of daily living. Abuse/DV Screen: The patient / caregiver reports he/she is: not in a situation that causes fear, pain or injury. Nutritional screening: No deficits noted. Advance Directives: There is no active DNR order. home support is adequate. Assessment: 20:48 General: Appears uncomfortable, Behavior is cooperative, crying. Pain: Location: right mcp flank Pain currently is 10 out of 10 on a pain scale. Neurological: No deficits noted. Respiratory: Airway is patent Respiratory effort is even, unlabored. Derm: Skin is pink, warm & dry. Musculoskeletal: Circulation, motion, and sensation intact. 22:51 Reassessment: Patient appears in no apparent distress at this time. Patient states [facility] symptoms have improved. Vital Signs: 20:07 BP 162 / 118; Pulse 122; Resp 18; Temp 99; Pulse Ox 94% ; Weight 124.74 kg; Height 5 m ft. 9 in. (175.26 cm); Pain 10/10; 21:58 BP 145 / 108; Pulse 99; Resp 18; Temp 97.9; Pulse Ox 92% ; slm 22:50 BP 166 / 97; Pulse 92; Resp 18; Temp 98.5; Pulse Ox 93% ; Pain 4/10; slm 22:50 Pain 4/10; slm 20:07 Body Mass Index 40.61 (124.74 kg, 175.26 cm) [facility] Vitals: 20:07 Log In Time: May 15, 2016 at 20:07. [facility] ED Course: 20:06 Patient visited by Pati Partida, Service Girl. [facility] 20:06 Anusha Tan is Private Physician. jl 20:06 Patient moved to Waiting jlm 20:08 Patient moved to Pre RCE jlm 20:14 Triage Initiated jo3 20:16 Patient visited by Faustina Tatum RN. jo3 20:18 Kendrick Vieira PA is PHCP. mo1 20:18 Phillip Chong DO is Attending Physician. mo1 20:18 Patient moved to jo3 20:19 Patient visited by Kendrick Vieira PA. mo1 20:26 Urinalysis Sent. jb5 20:26 Urine Culture Sent. jb5 20:41 MED Profile Sent. jb5 20:41 CBC with Diff Sent. jb5 20:44 LIVER PROFILE Sent. jb5 20:49 Patient visited by Marnie Sainz RN. [facility] 20:49 The patient / caregiver is instructed regarding the plan of care and ED course. Patient [facility] has correct armband on for positive identification. Placed in gown. Bed in low position. Call light in reach. Adult w/ patient. 20:49 Inserted saline lock: 20 gauge in right antecubital area and blood collected. The [facility] patient tolerated the procedure well. Labs drawn. (by ED staff). Sent per order to lab. 21:54 Patient visited by Yoli Vega PCA. jb5 22:41 Meet Levin is Referral Physician. mo 22:50 Josefina Fernandes LPN is Primary Nurse. [facility] 22:51 Discontinued lock intact, bleeding controlled, pressure dressing applied, No slm redness/swelling at site. No procedures done that require assistance. 22:52 Patient visited by Josefina Fernandes LPN. [facility] 05/16 08:17 T-Sheet-- Draft Copy was scanned into [employer] and attached to record. [facility] 19:25 CT ABD & PELVIS: No Contrast Returned. EDMS Administered Medications: 05/15 20:47 Drug: Ondansetron 4 mg [ondansetron HCl 2 mg/mL intravenous solution (2 mL)] Route: [facility] IVP; Site: right antecubital; 20:47 Drug: ketorolac 30 mg [ketorolac 30 mg/mL (1 mL) injection solution (1 mL)] Route: IVP; [facility] Site: right antecubital; 20:48 Drug: NS 0.9% 1000 ml [sodium chloride 0.9 % intravenous solution] Route: IV; Rate: [facility] bolus; Site: right antecubital; 22:52 Follow up: IV Status: Completed infusion [facility] 21:34 Drug: morphine 4 mg [morphine 4 mg/mL intravenous cartridge (1 mL)] Route: IVP; Site: [facility] right antecubital; 21:34 Drug: Tamsulosin 0.4 mg [tamsulosin 0.4 mg capsule (1 caps)] Route: PO; [facility] 22:23 Drug: Dilaudid - HYDROmorphone 1 mg [hydromorphone 1 mg/mL injection syringe (1 mL)] mlc Route: IVP; Site: right antecubital; 22:50 Follow up: Pain 06/29 Adult slm 22:49 Drug: oxyCODONE-acetaminophen 4 pack 1 packets [oxycodone-acetaminophen 5 mg-325 mg slm tablet (1 tabs)] {Co-Signature: mcp (Marnie Sainz RN).} Route: PO; 22:49 Drug: Ondansetron ODT 4 mg [ondansetron 4 mg disintegrating tablet (1 tabs)] {Note: slm home use.} Route: PO; Order Results: Lab Order: CBC with Diff; SPEC'M 05/15/16 20:39 Test: WHITE BLOOD COUNT; Value: 9.0; Range: 4.0-10.0; Units: K/mm3; Status: F Test: RED BLOOD COUNT; Value: 4.66; Range: 4.00-5.40; Units: M/mm3; Status: F Test: HEMOGLOBIN; Value: 14.9; Range: 12.0-16.0; Units: g/dl; Status: F Test: HEMATOCRIT; Value: 41.8; Range: 36.0-47.0; Units: %; Status: F Test: MEAN CORPUSCULAR VOLUME; Value: 89.6; Range: 80.0-96.0; Units: fl; Status: F Test: MEAN CORPUSCULAR HEMOGLOBIN; Value: 31.9; Range: 27.0-33.0; Units: pg; Status: F Test: MEAN CORPUSCULAR HGB CONC; Value: 35.6; Range: 32.0-36.5; Units: g/dl; Status: F Test: RED CELL DISTRIBUTION WIDTH; Value: 12.2; Range: 11.5-14.5; Units: %; Status: F Test: PLATELET COUNT, AUTOMATED; Value: 302; Range: 150-450; Units: k/mm3; Status: F Test: NEUTROPHILS %; Value: 47.7; Range: 36.0-66.0; Units: %; Status: F Test: LYMPH %; Value: 34.1; Range: 24.0-44.0; Units: %; Status: F Test: MONO %; Value: 7.5; Range: 0.0-5.0; Abnormal: Above high normal; Units: %; Status: F Test: EOS %; Value: 6.8; Range: 0.0-3.0; Abnormal: Above high normal; Units: %; Status: F Test: BASO %; Value: 0.5; Range: 0.0-1.0; Units: %; Status: F Test: LARGE UNSTAINED CELL %; Value: 3.4; Range: 0.0-4.0; Units: %; Status: F Test: NEUTROPHILS #; Value: 4.3; Range: 1.8-7.7; Units: K/mm3; Status: F Test: LYMPH #; Value: 3.1; Range: 1.5-6.5; Units: K/mm3; Status: F Test: MONO #; Value: 0.7; Range: 0.0-0.8; Units: K/mm3; Status: F Test: EOS #; Value: 0.6; Range: 0.0-0.50; Abnormal: Above high normal; Units: K/mm3; Status: F Test: BASO #; Value: 0.0; Range: 0.0-0.2; Units: K/mm3; Status: F Test: LARGE UNSTAINED CELL #; Value: 0.3; Range: 0.0-0.4; Units: K/mm3; Status: F Lab Order: MED Profile; [facility] 05/15/16 20:39 Test: GLUCOSE, FASTING; Value: 128; Range: 70-105; Abnormal: Above high normal; Units: MG/DL; Status: F Test: BLOOD UREA NITROGEN; Value: 14; Range: 7-18; Units: MG/DL; Status: F Test: CREATININE FOR GFR; Value: 0.92; Range: 0.55-1.02; Units: MG/DL; Status: F Test: GLOMERULAR FILTRATION RATE; Value: > 60.0; Range: >60; Status: F Test: SODIUM LEVEL; Value: 142; Range: 136-145; Units: MEQ/L; Status: F Test: POTASSIUM SERUM; Value: 4.0; Range: 3.5-5.1; Units: MEQ/L; Status: F Test: CHLORIDE LEVEL; Value: 106; Range: 98-107; Units: MEQ/L; Status: F Test: CARBON DIOXIDE LEVEL; Value: 28; Range: 21-32; Units: MEQ/L; Status: F Test: ANION GAP; Value: 8; Range: 8-16; Units: MEQ/L; Status: F Test: CALCIUM LEVEL; Value: 8.9; Range: 8.5-10.1; Units: MG/DL; Status: F Test Note: ; Units are mL/min/1.73 m2 Chronic Kidney Disease Staging per NKF: Stage I & II GFR >=60 Normal to Mildly Decreased Stage III GFR 30-59 Moderately Decreased Stage IV GFR 15-29 Severely Decreased Stage V GFR <15 Very Little GFR Left ESRD GFR <15 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 Lab Order: Urinalysis; SPEC'M 05/15/16 20:27 Test: APPEARANCE, URINE; Value: CLOUDY; Range: CLEAR; Abnormal: Above high normal; Status: F Test: COLOR, URINE; Value: YELLOW; Range: YELLOW; Status: F Test: PH,URINE; Value: 6.0; Range: 5.0-9.0; Units: UNITS; Status: F Test: SPECIFIC GRAVITY URINE AUTO; Value: 1.019; Range: 1.002-1.035; Status: F Test: PROTEIN, URINE AUTO; Value: 2+; Range: NEGATIVE; Abnormal: Above high normal; Units: mg/dL; Status: F Test: GLUCOSE, URINE (UA) AUTO; Value: NEGATIVE; Range: NEGATIVE; Units: mg/dL; Status: F Test: KETONE, URINE AUTO; Value: NEGATIVE; Range: NEGATIVE; Units: mg/dL; Status: F Test: UROBILINOGEN, URINE AUTO; Value: 0.2; Range: 0.0-2.0; Units: mg/dL; Status: F Test: BILIRUBIN, URINE AUTO; Value: NEGATIVE; Range: NEGATIVE; Status: F Test: NITRITE, URINE AUTO; Value: NEGATIVE; Range: NEGATIVE; Status: F Test: LEUKOCYTE ESTERASE, URINE AUTO; Value: NEGATIVE; Range: NEGATIVE; Status: F Test: BLOOD, URINE BLOOD; Value: 3+; Range: NEGATIVE; Abnormal: Above high normal; Status: F Test: WBC, URINE AUTO; Value: 6; Range: 0-3; Abnormal: Above high normal; Units: /HPF; Status: F Test: RBC, URINE AUTO; Value: TNTC; Range: 0-3; Abnormal: Above high normal; Units: /HPF; Status: F Test: BACTERIA, URINE AUTO; Value: NEGATIVE; Range: NEGATIVE; Status: F Test: SQUAMOUS EPITHELIAL CELL UR AU; Value: 13; Range: 0-6; Units: /HPF; Status: F Test: HYALINE CAST, URINE AUTO; Value: 0; Range: 0-1; Units: /LPF; Status: F Lab Order: Urine Culture; SPEC' 05/15/16 20:27 Test: URINE CULTURE; Value: <EXTERNAL COMMENT eCWMed> FULL REPORT IN LAB NOTES (eCW and Medent).; Status: F Test: URINE CULTURE; Value: URINE CULTURE RESULT NO GROWTH CLINICAL SIGNIFICANCE 1 ORGANISM; Status: F Lab Order: UCG- In Lab; SPEC' 05/15/16 20:20 Test: URINE PREG TEST; Value: NEGATIVE; Range: NEGATIVE; Status: F Lab Order: LIVER PROFILE; [facility]' 05/15/16 20:39 Test: AST/SGOT; Value: 23; Range: 15-37; Units: U/L; Status: F Test: ALT/SGPT; Value: 31; Range: 12-78; Units: U/L; Status: F Test: ALKALINE PHOSPHATASE; Value: 74; Range: 45-117; Units: U/L; Status: F Test: BILIRUBIN,TOTAL; Value: 0.3; Range: 0.2-1.0; Units: MG/DL; Status: F Test: BILIRUBIN,DIRECT; Value: < 0.1; Range: 0.0-0.2; Units: MG/DL; Status: F Test: TOTAL PROTEIN; Value: 7.4; Range: 6.4-8.2; Units: GM/DL; Status: F Test: ALBUMIN; Value: 3.9; Range: 3.2-5.2; Units: GM/DL; Status: F Test: ALBUMIN/GLOBULIN RATIO; Value: 1.11; Range: 1.00-1.93; Status: F Radiology Order: CT ABD & PELVIS: No Contrast Test: CT ABD & PELVIS: No Contrast REASON FOR EXAMINATION: Renal colic; Clinical: Right flank pain.; ; Comparison: 06/10/2012.; ; Findings: Mild acute right-sided obstructive uropathy with hydroureteronephrosis; and periureteral stranding secondary to a 3 mm calculus in the distal right; ureter approaching the ureterovesicle junction (images 134 - 135). 1 mm; nonobstructing right renal calculus also identified. The left kidney/ureter and; collapsed bladder appear normal.; ; Liver, spleen, pancreas, gallbladder, and bilateral adrenal glands are normal for; noncontrast evaluation. The enteric system is without obstruction or acute; inflammatory process and a normal terminal ileum and appendix are identified in; the right lower quadrant. Pelvis demonstrates normal uterus with physiologic; cystic changes to the bilateral adnexa. No ascites. No free air. No; intraperitoneal or retroperitoneal adenopathy. Abdominal aorta normal without; aneurysm. Musculoskeletal structures are intact. Lung bases clear.; ; Impression:; 1. Mild acute right-sided obstructive uropathy with 3 mm calculus in the distal; right ureter approaching the ureterovesicle junction. 1 mm nonobstructing right; renal calculus. Left kidney and collapsed bladder are normal.; 2. Physiologic cystic changes to the bilateral ovaries.; ; ; Signed by; Gregory Morgan MD 05/16/2016 06:41 P; Outcome: 22:41 Discharge ordered by Provider. mo1 22:51 Discharge Assessment: Patient awake, alert and oriented x 3. No cognitive and/or slm functional deficits noted. Patient verbalized understanding of disposition instructions. patient administered narcotics - yes. Pt provided with safe discharge. The following High Risk Discharge criteria are identified: None. Discharged to home ambulatory, with parent. Condition: good Condition: improved. Discharge instructions given to patient, Instructed on discharge instructions, follow up and referral plans. medication usage, no driving heavy equipment, Demonstrated understanding of instructions, medications, Pt was receptive of discharge instructions/ teaching. Prescriptions given X 3. CT Study completed. Property :Personal belongings accompany Pt. 22:53 Patient left the ED. slm Signatures: Dispatcher [employer] EDMS Marnie Sainz, Yoli Padilla RN, mcp, HEATH JOE jbFaustina Cerna RN RN [email or web address] Kendrick Vieira PA PA mo1 Josefina Fernandes,ALTAGRACIA QUALITY ASSURANCE ADVISOR slm Pati Partida, Service Girl Unit Fabiola Strange RN RN mlc Hoffert, Sarah seh Mary Peters RN mcp Chart Complete MTDD
--- NOTE | 2016-05-18 17:10 | EDDOCDS ---
Physician Documentation [facility] Name: Olive Peterson Age: 30 yrs Sex: Female : 1985 Arrival Date: 05/15/2016 Time: 20:06 Bed I7 Private MD: Anusha Tan M. Disposition: 05/15/16 22:41 Discharged to Home/Self Care. Impression: Calculus of ureter - distal right ureter, 3mm . - Condition is Stable. - Discharge Instructions: Kidney Stones. - Prescriptions for Percocet 5- 325 mg Oral Tablet - take 1 tablet by ORAL route every 6 hours As needed MDD: 4 tabs; 20 tablet. Flomax 0.4 mg Oral Capsule, Sust. Release 24 hr - take 1 capsule by ORAL route once daily 1/2 hour following the same meal each day; 30 capsule. ZOFRAN ODT 4 mg - dissolve 1 tablet by ORAL route 4 times per day As needed do not chew, do not swallow whole; 10 tablet. - Work Release Form - 2 day, Medication Reconciliation, Local Pharmacy Hours form. - Follow up: Meet Levin; When: Call to arrange an appointment; Reason: Recheck today's complaints, Continuance of care. - Problem is new. - Symptoms are unchanged. Historical: - Allergies: no known allergies; - Home Meds: 1. multivitamin Oral tab daily - PMHx: Kidney stones; PCOS; - PSHx: Lithotripsy; - Social history: Smoking status: Patient uses tobacco products, light tobacco smoker. No barriers to communication noted, The patient speaks fluent [place], Speaks appropriately for age. - Family history: Not pertinent. - : The pt / caregiver states he / she is not on anticoagulants. Home medication list is obtained from the patient. 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 9 in. (175.26 cm); Pain 10/10; 21:58 BP 145 / 108; Pulse 99; Resp 18; Temp 97.9; Pulse Ox 92% ; slm 22:50 BP 166 / 97; Pulse 92; Resp 18; Temp 98.5; Pulse Ox 93% ; Pain 4/10; slm 22:50 Pain 4/10; slm 20:07 Body Mass Index 40.61 (124.74 kg, 175.26 cm) [facility] MDM: 20:11 CBC with Diff Ordered. EDMS 20:11 MED Profile Ordered. EDMS 20:11 Urinalysis Ordered. EDMS 20:11 Urine Culture Ordered. EDMS 20:11 CT ABD & PELVIS: No Contrast Ordered. EDMS 20:32 IV Saline Lock ordered. mo1 20:32 NS 0.9% 1000 ml IV at bolus once ordered. mo1 20:32 Ondansetron 4 mg IVP once ordered. mo1 20:32 ketorolac 30 mg IVP once ordered. mo1 20:33 UCG- In Lab Ordered. EDMS 20:37 LIVER PROFILE Ordered. EDMS 21:03 UCG- In Lab Reviewed. mo1 21:04 Urinalysis Reviewed. mo1 21:21 morphine 4 mg IVP once ordered. mo1 21:21 Tamsulosin Extended Release 24 hour Capsule 0.4 mg PO once ordered. mo1 21:39 LIVER PROFILE Reviewed. mo1 21:40 MED Profile Reviewed. mo1 21:40 CBC with Diff Reviewed. mo1 22:11 Dilaudid - HYDROmorphone 1 mg IVP once ordered. mo1 22:40 oxyCODONE-acetaminophen 4 pack 5 mg-325 mg 1 packets PO once; Dispense with pt, take as mo1 per instruction on package ordered. 22:40 Ondansetron ODT Oral Disintegrating Tablet 4 mg PO once; [please give to go home] mo1 ordered. 05/16 08:17 T-Sheet-- Draft Copy was scanned into [employer] and attached to record. [facility] Administered Medications: 05/15 20:47 Drug: Ondansetron 4 mg [ondansetron HCl 2 mg/mL intravenous solution (2 mL)] Route: mcp IVP; Site: right antecubital; 20:47 Drug: ketorolac 30 mg [ketorolac 30 mg/mL (1 mL) injection solution (1 mL)] Route: IVP; mcp Site: right antecubital; 20:48 Drug: NS 0.9% 1000 ml [sodium chloride 0.9 % intravenous solution] Route: IV; Rate: mcp bolus; Site: right antecubital; 22:52 Follow up: IV Status: Completed infusion sl 21:34 Drug: morphine 4 mg [morphine 4 mg/mL intravenous cartridge (1 mL)] Route: IVP; Site: [facility] right antecubital; 21:34 Drug: Tamsulosin 0.4 mg [tamsulosin 0.4 mg capsule (1 caps)] Route: PO; [facility] 22:23 Drug: Dilaudid - HYDROmorphone 1 mg [hydromorphone 1 mg/mL injection syringe (1 mL)] [facility] Route: IVP; Site: right antecubital; 22:50 Follow up: Pain 06/29 Adult sl 22:49 Drug: oxyCODONE-acetaminophen 4 pack 1 packets [oxycodone-acetaminophen 5 mg-325 mg slm tablet (1 tabs)] {Co-Signature: [facility] (Marnie Sainz RN).} Route: PO; 22:49 Drug: Ondansetron ODT 4 mg [ondansetron 4 mg disintegrating tablet (1 tabs)] {Note: slm home use.} Route: PO; Signatures: Dispatcher [employer] EDFaustina Curiel RN RN Kendrick Boss PA PA mo1 Josefina Fernandes LPN LPN slm Hoffert, Sarah seh Peters, Mary RN mcp Booth, Mandy RN mlc Mary Peters RN [facility] The chart was reviewed and I authenticate all verbal orders and agree with the evaluation and treatment provided.Corrections: (The following items were deleted from the chart) 20:37 20:33 LIVER PROFILE+LAB ordered. EDMI EDMI Attachments: 05/16 08:17 T-Sheet-- Draft Copy [facility] Chart Complete MTDD
--- NOTE | 2016-05-18 17:10 | EDDOCDS ---
Physician Documentation [facility] Name: Olive Peterson Age: 30 yrs Sex: Female : 1985 Arrival Date: 05/15/2016 Time: 20:06 Bed I7 Private MD: Anusha Tan M. Disposition: 05/15/16 22:41 Discharged to Home/Self Care. Impression: Calculus of ureter - distal right ureter, 3mm . - Condition is Stable. - Discharge Instructions: Kidney Stones. - Prescriptions for Percocet 5- 325 mg Oral Tablet - take 1 tablet by ORAL route every 6 hours As needed MDD: 4 tabs; 20 tablet. Flomax 0.4 mg Oral Capsule, Sust. Release 24 hr - take 1 capsule by ORAL route once daily 1/2 hour following the same meal each day; 30 capsule. ZOFRAN ODT 4 mg - dissolve 1 tablet by ORAL route 4 times per day As needed do not chew, do not swallow whole; 10 tablet. - Work Release Form - 2 day, Medication Reconciliation, Local Pharmacy Hours form. - Follow up: Meet Levin; When: Call to arrange an appointment; Reason: Recheck today's complaints, Continuance of care. - Problem is new. - Symptoms are unchanged. Historical: - Allergies: no known allergies; - Home Meds: 1. multivitamin Oral tab daily - PMHx: Kidney stones; PCOS; - PSHx: Lithotripsy; - Social history: Smoking status: Patient uses tobacco products, light tobacco smoker. No barriers to communication noted, The patient speaks fluent Danish, Speaks appropriately for age. - Family history: Not pertinent. - : The pt / caregiver states he / she is not on anticoagulants. Home medication list is obtained from the patient. 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 9 in. (175.26 cm); Pain 10/10; 21:58 BP 145 / 108; Pulse 99; Resp 18; Temp 97.9; Pulse Ox 92% ; slm 22:50 BP 166 / 97; Pulse 92; Resp 18; Temp 98.5; Pulse Ox 93% ; Pain 4/10; slm 22:50 Pain 4/10; slm 20:07 Body Mass Index 40.61 (124.74 kg, 175.26 cm) [facility] MDM: 20:11 CBC with Diff Ordered. EDMS 20:11 MED Profile Ordered. EDMS 20:11 Urinalysis Ordered. EDMS 20:11 Urine Culture Ordered. EDMS 20:11 CT ABD & PELVIS: No Contrast Ordered. EDMS 20:32 IV Saline Lock ordered. mo1 20:32 NS 0.9% 1000 ml IV at bolus once ordered. mo1 20:32 Ondansetron 4 mg IVP once ordered. mo1 20:32 ketorolac 30 mg IVP once ordered. mo1 20:33 UCG- In Lab Ordered. EDMS 20:37 LIVER PROFILE Ordered. EDMS 21:03 UCG- In Lab Reviewed. mo1 21:04 Urinalysis Reviewed. mo1 21:21 morphine 4 mg IVP once ordered. mo1 21:21 Tamsulosin Extended Release 24 hour Capsule 0.4 mg PO once ordered. mo1 21:39 LIVER PROFILE Reviewed. mo1 21:40 MED Profile Reviewed. mo1 21:40 CBC with Diff Reviewed. mo1 22:11 Dilaudid - HYDROmorphone 1 mg IVP once ordered. mo1 22:40 oxyCODONE-acetaminophen 4 pack 5 mg-325 mg 1 packets PO once; Dispense with pt, take as mo1 per instruction on package ordered. 22:40 Ondansetron ODT Oral Disintegrating Tablet 4 mg PO once; [please give to go home] mo1 ordered. 05/16 08:17 T-Sheet-- Draft Copy was scanned into [employer] and attached to record. [facility] Administered Medications: 05/15 20:47 Drug: Ondansetron 4 mg [ondansetron HCl 2 mg/mL intravenous solution (2 mL)] Route: mcp IVP; Site: right antecubital; 20:47 Drug: ketorolac 30 mg [ketorolac 30 mg/mL (1 mL) injection solution (1 mL)] Route: IVP; mcp Site: right antecubital; 20:48 Drug: NS 0.9% 1000 ml [sodium chloride 0.9 % intravenous solution] Route: IV; Rate: mcp bolus; Site: right antecubital; 22:52 Follow up: IV Status: Completed infusion sl 21:34 Drug: morphine 4 mg [morphine 4 mg/mL intravenous cartridge (1 mL)] Route: IVP; Site: [facility] right antecubital; 21:34 Drug: Tamsulosin 0.4 mg [tamsulosin 0.4 mg capsule (1 caps)] Route: PO; [facility] 22:23 Drug: Dilaudid - HYDROmorphone 1 mg [hydromorphone 1 mg/mL injection syringe (1 mL)] [facility] [place] Route: IVP; Site: right antecubital; 22:50 Follow up: Pain 06/29 Adult sl 22:49 Drug: oxyCODONE-acetaminophen 4 pack 1 packets [oxycodone-acetaminophen 5 mg-325 mg slm tablet (1 tabs)] {Co-Signature: [facility] (Marnie Sainz RN).} Route: PO; 22:49 Drug: Ondansetron ODT 4 mg [ondansetron 4 mg disintegrating tablet (1 tabs)] {Note: slm home use.} Route: PO; Signatures: Dispatcher [employer] EDFaustina Curiel RN RN Kendrick Boss PA PA mo1 Josefina Fernandes LPN LPN slm Hoffert, Sarah seh Peters, Mary RN mcp Booth, Mandy RN mlc Mary Peters RN [facility] The chart was reviewed and I authenticate all verbal orders and agree with the evaluation and treatment provided.Corrections: (The following items were deleted from the chart) 20:37 20:33 LIVER PROFILE+LAB ordered. EDNH EDNH Attachments: 05/16 08:17 T-Sheet-- Draft Copy [facility] Chart Complete MTDD
== END 2016-05-15 22:53 | disposition home or self-care (01) ==
LOC: M ED 20:06
DX: N20.1 Calculus of ureter (principal); E28.2 Polycystic ovarian syndrome; Z87.442 Personal history of urinary calculi; F17.210 Nicotine dependence, cigarettes, uncomplicated
CPT/HCPCS: 36415; 74176; 80048; 80076; 81001; 84703; 85025; 87086; 96361; 96374; 96375; 99284; J1170; J1885; J2405

== ENCOUNTER 2016-05-17 23:26 | Emergency (ER) | payer MEDICAID ==
[2016-05-17] MEDS ORDERED: KETOROLAC 30 MG/ML VIAL (J1885) As Ordered ONE (23:52)
[2016-05-18] MEDS ORDERED: HYDROmorphone HCL 1 MG/ML SYRINGE (J1170) As Ordered ONE ×2 (00:08→02:31)
[2016-05-18 00:11] LABS: BASO % 0.3 % (0.0-1.0); EOS # 0.4 K/mm3 (0.0-0.50); EOS % 5.1 % (0.0-3.0); LARGE UNSTAINED CELL # 0.2 K/mm3 (0.0-0.4); LARGE UNSTAINED CELL % 2.7 % (0.0-4.0); LYMPH # 2.5 K/mm3 (1.5-6.5); LYMPH % 29.1 % (24.0-44.0); MEAN CORPUSCULAR HEMOGLOBIN 30.8 pg (27.0-33.0); MEAN CORPUSCULAR HGB CONC 34.7 g/dl (32.0-36.5); MEAN CORPUSCULAR VOLUME 88.7 fl (80.0-96.0); MONO # 0.5 K/mm3 (0.0-0.8); MONO % 6.3 % (0.0-5.0); NEUTROPHILS # 4.8 K/mm3 (1.8-7.7); NEUTROPHILS % 56.5 % (36.0-66.0); PLATELET COUNT, AUTOMATED 268 k/mm3 (150-450); RED CELL DISTRIBUTION WIDTH 12.1 % (11.5-14.5); WHITE BLOOD COUNT 8.5 K/mm3 (4.0-10.0)
[2016-05-18 00:31] LABS: CONTROL LINE HCG INT CTR LINE PRESENT
[2016-05-18 00:36] LABS: ANION GAP 8 MEQ/L (8-16); BLOOD UREA NITROGEN 16 MG/DL (7-18); CALCIUM LEVEL 8.8 MG/DL (8.5-10.1); CARBON DIOXIDE LEVEL 29 MEQ/L (21-32); CHLORIDE LEVEL 106 MEQ/L (98-107); CREATININE FOR GFR 0.93 MG/DL (0.55-1.02); GLOMERULAR FILTRATION RATE > 60.0 (>60); GLUCOSE, FASTING 114 MG/DL (70-105); SODIUM LEVEL 143 MEQ/L (136-145)
[2016-05-18] MEDS ORDERED: CIPROFLOXACIN/D5W 400 MG/200 ML BAG (J0744) As Ordered ONE (00:42)
[2016-05-18] MEDS ORDERED: METOCLOPRAMIDE INJ 10MG/2ML VIAL (J2765) As Ordered ONE (00:51)
--- NOTE | 2016-05-18 01:40 | REPUSA ---
CLINICAL HISTORY: Abdominal pain. TECHNIQUE: Multiple axial, sagittal and coronal CT images were obtained through the abdomen and pelvi s without administration of oral or IV contrast material. COMMENTS: The liver is of uniform attenuation without mass or defect. There is no intra or extrahepatic biliary ductal dilatation. The spleen is normal. The gallbladder is within normal limits. The pancreas is of normal contour and attenuation characteristics. There is no evidence of adrenal mass. 4.5 mm obstructing calculus of the right ureterovesical junction. Mild right hydroureteronephrosis. Moderate fecal stasis in the cecum. Bilateral nonobstructing renal stones with the largest measuring 3 mm. The kidneys are normal in size, shape and configuration. There is no left hydroureter or hydronephrosis. There is no evidence for appendicitis. There is no bowel wall thickening. No evidence for small or la rge bowel obstruction. There is no evidence of abdominal ascites or lymphadenopathy. There is no evidence of intrinsic or extrinsic bladder mass. There is no pelvic ascites or lymphadeno [place]. 3.3 cm left ovarian cyst. Images of the lung bases show no evidence of pleural or parenchymal mass. There are no pleural effusions. The bony structures are free of lytic or blastic lesions. IMPRESSION: Obstructing stone of the right ureterovesical junction. This stone was in the distal right ureter on the prior exam performed on the 05/15/2016. Bilateral nephrolithiasis. This is unchanged. Unchanged left ovarian cyst.
[2016-05-18] MEDS ORDERED: TAMSULOSIN 0.4 MG CAP As Ordered ONE (03:22)
--- NOTE | 2016-05-18 06:29 | EDDOCDS ---
Physician Documentation [facility] Name: Olive Peterson Age: 30 yrs Sex: Female : 1985 Arrival Date: 05/17/2016 Time: 23:26 Bed 17 Private MD: Disposition: 05/18/16 06:01 Discharged to Home/Self Care. Impression: Calculus of ureter, Urinary tract infection, site not specified. - Condition is Stable. - Prescriptions for Flomax 0.4 mg Oral Capsule, Sust. Release 24 hr - take 1 capsule by ORAL route once daily 1/2 hour following the same meal each day; 10 capsule. Cipro 500 mg Oral Tablet - take 1 tablet by ORAL route every 12 hours; 10 tablet. - Medication Reconciliation, Local Pharmacy Hours form. - Follow up: Private Physician; When: As previously arranged; Reason: Continuance of care. - Problem is new. - Symptoms have improved. Historical: - Allergies: No known drug Allergies; - Home Meds: 1. multivitamin Oral tab daily 2. Percocet 5-325 mg Oral tab 1 tab every 4 hours (Last dose: 05/17/2016 22:00) - PMHx: Kidney stones; PCOS; - PSHx: Lithotripsy; - Social history: Smoking status: No barriers to communication noted, The patient speaks fluent Yoruba, Speaks appropriately for age, Smoking status: Patient uses tobacco products, heavy tobacco smoker. - Family history: Not pertinent. - : The pt / caregiver states he / she is not on anticoagulants. Home medication list is obtained from the patient. 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 9 in. (175.26 cm) (R); Pain 10; 05/18 01:03 BP 127 / 75; Pulse 86; Resp 16; Pain 4/10; cz 06:25 BP 143 / 85; Pulse 91; Resp 18; Temp 96.4(O); Pulse Ox 99% on R/A; Pain 2/10; simin 05/17 23:28 Body Mass Index 40.61 (124.74 kg, 175.26 cm) lr2 MDM: 05/17 23:49 IV Saline Lock ordered. cs11 23:49 NS 0.9% 1000 ml IV at bolus once ordered. cs11 23:49 ketorolac 30 mg IVP once ordered. cs11 23:50 CBC with Diff Ordered. EDMS 23:50 MED Profile Ordered. EDMS 23:50 Urinalysis Ordered. EDMS 23:50 HCG,Serum Qualitative Ordered. EDMS 23:50 Urine Culture Ordered. EDMS 23:51 CT ABD & PELVIS: No Contrast Ordered. EDMS 05/18 00:05 Dilaudid - HYDROmorphone 1 mg IVP once ordered. cs11 00:36 CBC with Diff Reviewed. cs11 00:36 Urinalysis Reviewed. cs11 00:36 HCG,Serum Qualitative Reviewed. cs11 00:37 Ciprofloxacin 400 mg IVPB at 200 mL/hr once over 60 mins ordered. cs11 00:48 Metoclopramide 10 mg IV at 40 mg/hr once over 15 mins ordered. cs11 00:59 NS 0.9% 1000 ml IV at bolus once ordered. cs11 02:08 Dilaudid - HYDROmorphone 1 mg IVP once ordered. cs11 03:18 Tamsulosin Extended Release 24 hour Capsule 0.4 mg PO once ordered. cs11 03:19 NS 0.9% 1000 ml IV at bolus once ordered. cs11 03:28 Financial registration complete. hs2 03:39 [facility] Payment Agreement was scanned into [employer] and attached to record. hs2 06:03 MED Profile Reviewed. cs11 06:03 HCG,Serum Qualitative Reviewed. cs11 06:03 CT ABD & PELVIS: No Contrast Reviewed. cs11 Administered Medications: 00:00 Drug: NS 0.9% 1000 ml [sodium chloride 0.9 % intravenous solution] Route: IV; Rate: cz bolus; Site: right forearm; 00:02 Drug: ketorolac 30 mg [ketorolac 30 mg/mL (1 mL) injection solution (1 mL)] Route: IVP; cz Site: right forearm; 00:10 Drug: Dilaudid - HYDROmorphone 1 mg [hydromorphone 1 mg/mL injection syringe (1 mL)] cz Route: IVP; Site: right forearm; 01:03 Follow up: BP 127 / 75; Pulse 86 bpm; Resp 16 bpm; Pain 4/10 Adult; Response: Pain is cz decreased 01:00 Drug: Ciprofloxacin 400 mg [ciprofloxacin 400 mg/200 mL in 5 % dextrose intravenous cz piggyback] Route: IVPB; Rate: 200 mL/hr; Infused Over: 60 mins; Site: right forearm; 01:00 Drug: Metoclopramide 10 mg [metoclopramide 5 mg/mL injection solution] Route: IV; Rate: cz 40 mg/hr; Infused Over: 15 mins; Site: right forearm; 01:03 Drug: NS 0.9% 1000 ml [sodium chloride 0.9 % intravenous solution] Route: IV; Rate: cz bolus; Site: right forearm; 02:37 Drug: Dilaudid - HYDROmorphone 1 mg [hydromorphone 1 mg/mL injection syringe (1 mL)] kmg1 Route: IVP; Site: right antecubital; 03:00 Follow up: Response: Pain is decreased kmg1 03:24 Drug: Tamsulosin 0.4 mg [tamsulosin 0.4 mg capsule (1 caps)] Route: PO; cz 03:50 Drug: NS 0.9% 1000 ml [sodium chloride 0.9 % intravenous solution] Route: IV; Rate: kmg1 bolus; Site: right subclavian; 06:27 Follow up: IV Status: Completed infusion; IV Intake: 1000ml [facility] Signatures: Dispatcher [employer] EDMS Gagan Lopez RN RN cz Helmerci, Jennifer, RN RN joPhillip Marie, DO cs11 Josefina Fernandes LPN LPN [facility] Terese Fowler, Reg Reg hs2 Anu Schneider RN km The chart was reviewed and I authenticate all verbal orders and agree with the evaluation and treatment provided.Attachments: 03:39 [facility] Payment Agreement hs2 MTDD
--- NOTE | 2016-05-18 06:29 | EDDOCDS ---
Nurse's Notes [facility] Name: Olive Peterson Age: 30 yrs Sex: Female : 1985 Arrival Date: 05/17/2016 Time: 23:26 Bed 17 Private MD: Diagnosis: Calculus of ureter;Urinary tract infection, site not specified Presentation: 05/17 23:33 Presenting complaint: Patient states: Diagnosed with 3mm and 2 mm kidney stones Wednesday. jo3 Pain medications are not working. Acute neurological deficits are not present. Mechanism of Injury: No Mechanism of Injury. Adult Sepsis Screening: The patient does not have new or worsening altered mentation. Patient's respiratory rate is less than 22. Systolic blood pressure is greater than 100. Patient has a qSOFA score of 0- Negative Sepsis Screen. Suicide/Homicide risk assessment- the patient denies having any suicidal and/or homicidal ideations and does not present with any other emotional, behavioral or mental health complaints. Status: Patient is not a home service consultant or dependent. Transition of care: patient was not received from another setting of care. 23:33 Acuity: MYNOR Level 3 jo3 23:33 Method Of Arrival: Walkin/Carried/Asstd jo3 Triage Assessment: 23:34 General: Appears uncomfortable, Behavior is appropriate for age, cooperative. Pain: jo3 Pain currently is 10 out of 10 on a pain scale. HIV screening NA for this visit Offered previously. Neurological: Level of Consciousness is awake, alert, Oriented to person, place, time. Derm: Skin is pink, warm & dry. 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 multivitamin Oral tab daily 2. Percocet 5-325 mg Oral tab 1 tab every 4 hours (Last dose: 05/17/2016 22:00) - PMHx: Kidney stones; PCOS; - PSHx: Lithotripsy; - Social history: Smoking status: No barriers to communication noted, The patient speaks fluent Kinyarwanda, Speaks appropriately for age, Smoking status: Patient uses tobacco products, heavy tobacco smoker. - Family history: Not pertinent. - : The pt / caregiver states he / she is not on anticoagulants. Home medication list is obtained from the patient. 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 Screenin/27 00:06 Screening information is obtained from the patient. Fall risk: No risks identified. cz Assistance ADL's: requires no assistance with activities of daily living. Abuse/DV Screen: The patient / caregiver reports he/she is: not in a situation that causes fear, pain or injury. Nutritional screening: No deficits noted. home support is adequate. 02:03 Advance Directives: There is no active DNR order. kmg1 Assessment: 00:06 General: alert female with right sided flank pain seen here for same recently. cz 02:03 General: Appears in no apparent distress, comfortable, Behavior is appropriate for age, kmg1 cooperative, pleasant. Pain: Location: right flank, right inguinal area and right iliac crest Pain currently is 7 out of 10 on a pain scale. Musculoskeletal: No deficits noted. 03:00 General: Appears in no apparent distress, comfortable, Behavior is appropriate for age, kmg1 cooperative, pleasant. Pain: Location: right iliac crest and right inguinal area and right flank Pain currently is 2 out of 10 on a pain scale. Quality of pain is described as sharp. Respiratory: Airway is patent Respiratory effort is even, unlabored, Respiratory pattern is regular, symmetrical. 04:24 Reassessment: Patient appears in no apparent distress at this time. Patient states kmg1 feeling better. Patient states symptoms have improved. 06:26 Reassessment: Patient appears in no apparent distress at this time. Patient states slm symptoms have improved. Respiratory: Airway is patent Respiratory effort is even, unlabored, Respiratory pattern is regular. Vital Signs: 05/17 23:28 BP 153 / 78; Pulse 101; Resp 20; Temp 96.8(T); Pulse Ox 98% ; Weight 124.74 kg (R); lr2 Height 5 ft. 9 in. (175.26 cm) (R); Pain 10/10; 05/18 01:03 BP 127 / 75; Pulse 86; Resp 16; Pain 4/10; cz 06:25 BP 143 / 85; Pulse 91; Resp 18; Temp 96.4(O); Pulse Ox 99% on R/A; Pain 2/10; simin 05/17 23:28 Body Mass Index 40.61 (124.74 kg, 175.26 cm) lr2 Vitals: 05/17 23:28 Log In Time: May 17, 2016 at 23:26. lr2 ED Course: 23:27 Patient visited by Yamel Taylor. lr2 23:27 Patient moved to Waiting lr2 23:29 Patient moved to Pre RCE lr2 23:34 Triage Initiated jo3 23:35 Patient visited by Faustina Tatum RN. jo3 23:47 Patient moved to 17 cz 23:48 Phillip Chong DO is Attending Physician. cs11 23:48 Patient visited by Phillip Chong DO. cs11 23:57 Urine Culture Sent. cln 23:57 Urinalysis Sent. cln 02 00:04 HCG,Serum Qualitative Sent. cz 00:04 MED Profile Sent. cz 00:05 CBC with Diff Sent. cz 00:06 The patient / caregiver is instructed regarding the plan of care and ED course. cz 00:06 Inserted saline lock: 20 gauge in right forearm. No procedures done that require cz assistance. 00:48 Patient visited by Gagan Lopez RN. cz 01:50 CT ABD & PELVIS: No Contrast Returned. EDMS 02:31 Patient visited by Beatriz Sherman PCA. simin 02:38 Patient visited by Anu Schneider RN. kmg1 03:39 [facility] Payment Agreement was scanned into [employer] and attached to record. hs2 04:34 Patient visited by Beatriz Sherman PCA. simin 05:39 Patient visited by Beatriz Sherman PCA. simin 06:25 Patient visited by Beatriz Sherman PCA. simin 06:26 Discontinued lock intact, bleeding controlled, pressure dressing applied, No slm redness/swelling at site. Administered Medications: 00:00 Drug: NS 0.9% 1000 ml [sodium chloride 0.9 % intravenous solution] Route: IV; Rate: cz bolus; Site: right forearm; 00:02 Drug: ketorolac 30 mg [ketorolac 30 mg/mL (1 mL) injection solution (1 mL)] Route: IVP; cz Site: right forearm; 00:10 Drug: Dilaudid - HYDROmorphone 1 mg [hydromorphone 1 mg/mL injection syringe (1 mL)] cz Route: IVP; Site: right forearm; 01:03 Follow up: BP 127 / 75; Pulse 86 bpm; Resp 16 bpm; Pain 4/10 Adult; Response: Pain is cz decreased 01:00 Drug: Ciprofloxacin 400 mg [ciprofloxacin 400 mg/200 mL in 5 % dextrose intravenous cz piggyback] Route: IVPB; Rate: 200 mL/hr; Infused Over: 60 mins; Site: right forearm; 01:00 Drug: Metoclopramide 10 mg [metoclopramide 5 mg/mL injection solution] Route: IV; Rate: cz 40 mg/hr; Infused Over: 15 mins; Site: right forearm; 01:03 Drug: NS 0.9% 1000 ml [sodium chloride 0.9 % intravenous solution] Route: IV; Rate: cz bolus; Site: right forearm; 02:37 Drug: Dilaudid - HYDROmorphone 1 mg [hydromorphone 1 mg/mL injection syringe (1 mL)] kmg1 Route: IVP; Site: right antecubital; 03:00 Follow up: Response: Pain is decreased [facility] [place]:24 Drug: Tamsulosin 0.4 mg [tamsulosin 0.4 mg capsule (1 caps)] Route: PO; cz 03:50 Drug: NS 0.9% 1000 ml [sodium chloride 0.9 % intravenous solution] Route: IV; Rate: kmg1 bolus; Site: right subclavian; 06:27 Follow up: IV Status: Completed infusion; IV Intake: 1000ml slm Intake: 06:27 IV: 1000.00ml; Total: 1000.00ml. slm Order Results: Lab Order: CBC with Diff; SPEC'M 05/17/16 23:56 Test: WHITE BLOOD COUNT; Value: 8.5; Range: 4.0-10.0; Units: K/mm3; Status: F Test: RED BLOOD COUNT; Value: 4.57; Range: 4.00-5.40; Units: M/mm3; Status: F Test: HEMOGLOBIN; Value: 14.1; Range: 12.0-16.0; Units: g/dl; Status: F Test: HEMATOCRIT; Value: 40.5; Range: 36.0-47.0; Units: %; Status: F Test: MEAN CORPUSCULAR VOLUME; Value: 88.7; Range: 80.0-96.0; Units: fl; Status: F Test: MEAN CORPUSCULAR HEMOGLOBIN; Value: 30.8; Range: 27.0-33.0; Units: pg; Status: F Test: MEAN CORPUSCULAR HGB CONC; Value: 34.7; Range: 32.0-36.5; Units: g/dl; Status: F Test: RED CELL DISTRIBUTION WIDTH; Value: 12.1; Range: 11.5-14.5; Units: %; Status: F Test: PLATELET COUNT, AUTOMATED; Value: 268; Range: 150-450; Units: k/mm3; Status: F Test: NEUTROPHILS %; Value: 56.5; Range: 36.0-66.0; Units: %; Status: F Test: LYMPH %; Value: 29.1; Range: 24.0-44.0; Units: %; Status: F Test: MONO %; Value: 6.3; Range: 0.0-5.0; Abnormal: Above high normal; Units: %; Status: F Test: EOS %; Value: 5.1; Range: 0.0-3.0; Abnormal: Above high normal; Units: %; Status: F Test: BASO %; Value: 0.3; Range: 0.0-1.0; Units: %; Status: F Test: LARGE UNSTAINED CELL %; Value: 2.7; Range: 0.0-4.0; Units: %; Status: F Test: NEUTROPHILS #; Value: 4.8; Range: 1.8-7.7; Units: K/mm3; Status: F Test: LYMPH #; Value: 2.5; Range: 1.5-6.5; Units: K/mm3; Status: F Test: MONO #; Value: 0.5; Range: 0.0-0.8; Units: K/mm3; Status: F Test: EOS #; Value: 0.4; Range: 0.0-0.50; Units: K/mm3; Status: F Test: BASO #; Value: 0.0; Range: 0.0-0.2; Units: K/mm3; Status: F Test: LARGE UNSTAINED CELL #; Value: 0.2; Range: 0.0-0.4; Units: K/mm3; Status: F Lab Order: MED Profile; SPEC'M 05/17/16 23:56 Test: GLUCOSE, FASTING; Value: 114; Range: 70-105; Abnormal: Above high normal; Units: MG/DL; Status: F Test: BLOOD UREA NITROGEN; Value: 16; Range: 7-18; Units: MG/DL; Status: F Test: CREATININE FOR GFR; Value: 0.93; Range: 0.55-1.02; Units: MG/DL; Status: F Test: SODIUM LEVEL; Range: 136-145; Units: MEQ/L; Status: I Test: POTASSIUM SERUM; Range: 3.5-5.1; Units: MEQ/L; Status: I Test: CHLORIDE LEVEL; Range: 98-107; Units: MEQ/L; Status: I Test: CARBON DIOXIDE LEVEL; Range: 21-32; Units: MEQ/L; Status: I Test: ANION GAP; Range: 8-16; Units: MEQ/L; Status: I Test: CALCIUM LEVEL; Range: 8.5-10.1; Units: MG/DL; Status: I Test: GLOMERULAR FILTRATION RATE; Value: > 60.0; Range: >60; Status: F Test: SODIUM LEVEL; Value: 143; Range: 136-145; Units: MEQ/L; Status: F Test: POTASSIUM SERUM; Value: 4.0; Range: 3.5-5.1; Units: MEQ/L; Status: F Test: CHLORIDE LEVEL; Value: 106; Range: 98-107; Units: MEQ/L; Status: F Test: CARBON DIOXIDE LEVEL; Value: 29; Range: 21-32; Units: MEQ/L; Status: F Test: ANION GAP; Value: 8; Range: 8-16; Units: MEQ/L; Status: F Test: CALCIUM LEVEL; Value: 8.8; Range: 8.5-10.1; Units: MG/DL; Status: F Test Note: ; Units are mL/min/1.73 m2 Chronic Kidney Disease Staging per NKF: Stage I & II GFR >=60 Normal to Mildly Decreased Stage III GFR 30-59 Moderately Decreased Stage IV GFR 15-29 Severely Decreased Stage V GFR <15 Very Little GFR Left ESRD GFR <15 on ENGINEER EXHAUSTER Lab Order: Urinalysis; SPEC'M 05/17/16 23:56 Test: APPEARANCE, URINE; Value: CLOUDY; Range: CLEAR; Abnormal: Above high normal; Status: F Test: COLOR, URINE; Value: YELLOW; Range: YELLOW; Status: F Test: PH,URINE; Value: 5.0; Range: 5.0-9.0; Units: UNITS; Status: F Test: SPECIFIC GRAVITY URINE AUTO; Value: 1.025; Range: 1.002-1.035; Status: F Test: PROTEIN, URINE AUTO; Value: 1+; Range: NEGATIVE; Abnormal: Above high normal; Units: mg/dL; Status: F Test: GLUCOSE, URINE (UA) AUTO; Value: NEGATIVE; Range: NEGATIVE; Units: mg/dL; Status: F Test: KETONE, URINE AUTO; Value: NEGATIVE; Range: NEGATIVE; Units: mg/dL; Status: F Test: UROBILINOGEN, URINE AUTO; Value: 0.2; Range: 0.0-2.0; Units: mg/dL; Status: F Test: BILIRUBIN, URINE AUTO; Value: NEGATIVE; Range: NEGATIVE; Status: F Test: NITRITE, URINE AUTO; Value: NEGATIVE; Range: NEGATIVE; Status: F Test: LEUKOCYTE ESTERASE, URINE AUTO; Value: TRACE; Range: NEGATIVE; Abnormal: Above high normal; Status: F Test: BLOOD, URINE BLOOD; Value: 1+; Range: NEGATIVE; Abnormal: Above high normal; Status: F Test: WBC, URINE AUTO; Value: 12; Range: 0-3; Abnormal: Above high normal; Units: /HPF; Status: F Test: RBC, URINE AUTO; Value: 8; Range: 0-3; Abnormal: Above high normal; Units: /HPF; Status: F Test: BACTERIA, URINE AUTO; Value: 1+; Range: NEGATIVE; Abnormal: Above high normal; Status: F Test: SQUAMOUS EPITHELIAL CELL UR AU; Value: 60; Range: 0-6; Units: /HPF; Status: F Test: MUCUS, URINE; Value: SMALL; Range: NEGATIVE; Status: F Test: HYALINE CAST, URINE AUTO; Value: 0; Range: 0-1; Units: /LPF; Status: F Lab Order: HCG,Serum Qualitative; SPEC'M 05/17/16 23:56 Test: HCG, SERUM QUALITATIVE; Value: NEGATIVE; Range: NEGATIVE; Status: F Radiology Order: CT ABD & PELVIS: No Contrast Test: CT ABD & PELVIS: No Contrast REASON FOR EXAMINATION: Renal colic; ; CLINICAL HISTORY: Abdominal pain.; TECHNIQUE: Multiple axial, sagittal and coronal CT images were obtained through the abdomen and pelvi; s without administration of oral or IV contrast material.; COMMENTS:; The liver is of uniform attenuation without mass or defect. There is no intra or extrahepatic biliary; ductal dilatation. The spleen is normal. The gallbladder is within normal limits. The pancreas is of; normal contour and attenuation characteristics. There is no evidence of adrenal mass.; 4.5 mm obstructing calculus of the right ureterovesical junction. Mild right hydroureteronephrosis.; Moderate fecal stasis in the cecum.; Bilateral nonobstructing renal stones with the largest measuring 3 mm.; The kidneys are normal in size, shape and configuration.; There is no left hydroureter or hydronephrosis.; There is no evidence for appendicitis. There is no bowel wall thickening. No evidence for small or la; rge bowel obstruction. There is no evidence of abdominal ascites or lymphadenopathy.; There is no evidence of intrinsic or extrinsic bladder mass. There is no pelvic ascites or lymphadeno; [place].; 3.3 cm left ovarian cyst.; Images of the lung bases show no evidence of pleural or parenchymal mass.; There are no pleural effusions.; The bony structures are free of lytic or blastic lesions.; IMPRESSION:; Obstructing stone of the right ureterovesical junction. This stone was in the distal right ureter on; the prior exam performed on the 05/15/2016.; Bilateral nephrolithiasis. This is unchanged.; Unchanged left ovarian cyst.; ; Outcome: 06:01 Discharge ordered by Provider. cs11 06:26 Discharge Assessment: Patient awake, alert and oriented x 3. No cognitive and/or slm functional deficits noted. Patient verbalized understanding of disposition instructions. patient administered narcotics - yes. Pt provided with safe discharge. The following High Risk Discharge criteria are identified: None. Discharged to home ambulatory, with parent. Condition: good Condition: improved. Discharge instructions given to patient, Instructed on discharge instructions, follow up and referral plans. medication usage, Demonstrated understanding of instructions, medications, Pt was receptive of discharge instructions/ teaching. Prescriptions given X 2. CT Study completed. Property :Personal belongings accompany Pt. 06:28 Patient left the ED. slm Signatures: Dispatcher [facility] EDMS Anu Schneider RN RN g1 Gagan Lopez RN RN Faustina Stinson RN RN jo3 Whit, Beatriz, CERTIFIED PROFESSIONAL MIDWIFE CERTIFIED PROFESSIONAL MIDWIFE simin Phillip Chong, DO DO cs11 Josefina Fernandes,APPLICATION SPEC APPLICATION SPEC slm Terese Fowler, Reg Reg hs2 Aguiar, Kate, CERTIFIED PROFESSIONAL MIDWIFE CERTIFIED PROFESSIONAL MIDWIFE cln Yamel Taylor lr2 Corrections: (The following items were deleted from the chart) 03:59 03:58 General: Appears in no apparent distress, comfortable, Behavior is appropriate kmg1 for age, cooperative, quiet, [facility] 03:58 Pain: Pain currently is 2 out of 10 on a pain scale. [place] [id number] 04:00 03:00 Reassessment: Patient states feeling better. Patient states symptoms have kmg1 improved. Continues to vomit at intervals. [facility] [place] 03:30 General: Appears in no apparent distress, comfortable, Behavior is appropriate g1 for age, cooperative, quiet, [facility] 04:00 03:30 Pain: Pain currently is 2 out of 10 on a pain scale. [place] [id number] MTDD
--- NOTE | 2016-05-18 06:29 | EDDOCDS ---
Nurse's Notes [facility] Name: Olive Peterson Age: 30 yrs Sex: Female : 1985 Arrival Date: 05/17/2016 Time: 23:26 Bed 17 Private MD: Diagnosis: Calculus of ureter;Urinary tract infection, site not specified Presentation: 05/17 23:33 Presenting complaint: Patient states: Diagnosed with 3mm and 2 mm kidney stones Wednesday. jo3 Pain medications are not working. Acute neurological deficits are not present. Mechanism of Injury: No Mechanism of Injury. Adult Sepsis Screening: The patient does not have new or worsening altered mentation. Patient's respiratory rate is less than 22. Systolic blood pressure is greater than 100. Patient has a qSOFA score of 0- Negative Sepsis Screen. Suicide/Homicide risk assessment- the patient denies having any suicidal and/or homicidal ideations and does not present with any other emotional, behavioral or mental health complaints. Status: Patient is not a environmental services manager or dependent. Transition of care: patient was not received from another setting of care. 23:33 Acuity: MYNOR Level 3 jo3 23:33 Method Of Arrival: Walkin/Carried/Asstd jo3 Triage Assessment: 23:34 General: Appears uncomfortable, Behavior is appropriate for age, cooperative. Pain: jo3 Pain currently is 10 out of 10 on a pain scale. HIV screening NA for this visit Offered previously. Neurological: Level of Consciousness is awake, alert, Oriented to person, place, time. Derm: Skin is pink, warm & dry. GLACIOLOGIST: 23:34 LMP 04/20/2016 jo3 Historical: - Allergies: No known drug Allergies; - Home Meds: 1. multivitamin Oral tab daily 2. Percocet 5-325 mg Oral tab 1 tab every 4 hours (Last dose: 05/17/2016 22:00) - PMHx: Kidney stones; PCOS; - PSHx: Lithotripsy; - Social history: Smoking status: No barriers to communication noted, The patient speaks fluent Yi, Speaks appropriately for age, Smoking status: Patient uses tobacco products, heavy tobacco smoker. - Family history: Not pertinent. - : The pt / caregiver states he / she is not on anticoagulants. Home medication list is obtained from the patient. 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 Screenin/27 00:06 Screening information is obtained from the patient. Fall risk: No risks identified. cz Assistance ADL's: requires no assistance with activities of daily living. Abuse/DV Screen: The patient / caregiver reports he/she is: not in a situation that causes fear, pain or injury. Nutritional screening: No deficits noted. home support is adequate. 02:03 Advance Directives: There is no active DNR order. kmg1 Assessment: 00:06 General: alert female with right sided flank pain seen here for same recently. cz 02:03 General: Appears in no apparent distress, comfortable, Behavior is appropriate for age, kmg1 cooperative, pleasant. Pain: Location: right flank, right inguinal area and right iliac crest Pain currently is 7 out of 10 on a pain scale. Musculoskeletal: No deficits noted. 03:00 General: Appears in no apparent distress, comfortable, Behavior is appropriate for age, kmg1 cooperative, pleasant. Pain: Location: right iliac crest and right inguinal area and right flank Pain currently is 2 out of 10 on a pain scale. Quality of pain is described as sharp. Respiratory: Airway is patent Respiratory effort is even, unlabored, Respiratory pattern is regular, symmetrical. 04:24 Reassessment: Patient appears in no apparent distress at this time. Patient states kmg1 feeling better. Patient states symptoms have improved. 06:26 Reassessment: Patient appears in no apparent distress at this time. Patient states slm symptoms have improved. Respiratory: Airway is patent Respiratory effort is even, unlabored, Respiratory pattern is regular. Vital Signs: 05/17 23:28 BP 153 / 78; Pulse 101; Resp 20; Temp 96.8(T); Pulse Ox 98% ; Weight 124.74 kg (R); lr2 Height 5 ft. 9 in. (175.26 cm) (R); Pain 10/10; 05/18 01:03 BP 127 / 75; Pulse 86; Resp 16; Pain 4/10; cz 06:25 BP 143 / 85; Pulse 91; Resp 18; Temp 96.4(O); Pulse Ox 99% on R/A; Pain 2/10; simin 05/17 23:28 Body Mass Index 40.61 (124.74 kg, 175.26 cm) lr2 Vitals: 05/17 23:28 Log In Time: May 17, 2016 at 23:26. lr2 ED Course: 23:27 Patient visited by Yamel Taylor. lr2 23:27 Patient moved to Waiting lr2 23:29 Patient moved to Pre RCE lr2 23:34 Triage Initiated jo3 23:35 Patient visited by Faustina Tatum RN. jo3 23:47 Patient moved to 17 cz 23:48 Phillip Chong DO is Attending Physician. cs11 23:48 Patient visited by Phillip Chong DO. cs11 23:57 Urine Culture Sent. cln 23:57 Urinalysis Sent. cln 02 00:04 HCG,Serum Qualitative Sent. cz 00:04 MED Profile Sent. cz 00:05 CBC with Diff Sent. cz 00:06 The patient / caregiver is instructed regarding the plan of care and ED course. cz 00:06 Inserted saline lock: 20 gauge in right forearm. No procedures done that require cz assistance. 00:48 Patient visited by Gagan Lopez RN. cz 01:50 CT ABD & PELVIS: No Contrast Returned. EDMS 02:31 Patient visited by Beatriz Sherman PCA. simin 02:38 Patient visited by Anu Schneider RN. kmg1 03:39 [facility] Payment Agreement was scanned into [employer] and attached to record. hs2 04:34 Patient visited by Beatriz Sherman PCA. simin 05:39 Patient visited by Beatriz Sherman PCA. simin 06:25 Patient visited by Beatriz Sherman PCA. simin 06:26 Discontinued lock intact, bleeding controlled, pressure dressing applied, No slm redness/swelling at site. Administered Medications: 00:00 Drug: NS 0.9% 1000 ml [sodium chloride 0.9 % intravenous solution] Route: IV; Rate: cz bolus; Site: right forearm; 00:02 Drug: ketorolac 30 mg [ketorolac 30 mg/mL (1 mL) injection solution (1 mL)] Route: IVP; cz Site: right forearm; 00:10 Drug: Dilaudid - HYDROmorphone 1 mg [hydromorphone 1 mg/mL injection syringe (1 mL)] cz Route: IVP; Site: right forearm; 01:03 Follow up: BP 127 / 75; Pulse 86 bpm; Resp 16 bpm; Pain 4/10 Adult; Response: Pain is cz decreased 01:00 Drug: Ciprofloxacin 400 mg [ciprofloxacin 400 mg/200 mL in 5 % dextrose intravenous cz piggyback] Route: IVPB; Rate: 200 mL/hr; Infused Over: 60 mins; Site: right forearm; 01:00 Drug: Metoclopramide 10 mg [metoclopramide 5 mg/mL injection solution] Route: IV; Rate: cz 40 mg/hr; Infused Over: 15 mins; Site: right forearm; 01:03 Drug: NS 0.9% 1000 ml [sodium chloride 0.9 % intravenous solution] Route: IV; Rate: cz bolus; Site: right forearm; 02:37 Drug: Dilaudid - HYDROmorphone 1 mg [hydromorphone 1 mg/mL injection syringe (1 mL)] kmg1 Route: IVP; Site: right antecubital; 03:00 Follow up: Response: Pain is decreased [facility] 03:24 Drug: Tamsulosin 0.4 mg [tamsulosin 0.4 mg capsule (1 caps)] Route: PO; cz 03:50 Drug: NS 0.9% 1000 ml [sodium chloride 0.9 % intravenous solution] Route: IV; Rate: kmg1 bolus; Site: right subclavian; 06:27 Follow up: IV Status: Completed infusion; IV Intake: 1000ml slm Intake: 06:27 IV: 1000.00ml; Total: 1000.00ml. slm Order Results: Lab Order: CBC with Diff; SPEC'M 05/17/16 23:56 Test: WHITE BLOOD COUNT; Value: 8.5; Range: 4.0-10.0; Units: K/mm3; Status: F Test: RED BLOOD COUNT; Value: 4.57; Range: 4.00-5.40; Units: M/mm3; Status: F Test: HEMOGLOBIN; Value: 14.1; Range: 12.0-16.0; Units: g/dl; Status: F Test: HEMATOCRIT; Value: 40.5; Range: 36.0-47.0; Units: %; Status: F Test: MEAN CORPUSCULAR VOLUME; Value: 88.7; Range: 80.0-96.0; Units: fl; Status: F Test: MEAN CORPUSCULAR HEMOGLOBIN; Value: 30.8; Range: 27.0-33.0; Units: pg; Status: F Test: MEAN CORPUSCULAR HGB CONC; Value: 34.7; Range: 32.0-36.5; Units: g/dl; Status: F Test: RED CELL DISTRIBUTION WIDTH; Value: 12.1; Range: 11.5-14.5; Units: %; Status: F Test: PLATELET COUNT, AUTOMATED; Value: 268; Range: 150-450; Units: k/mm3; Status: F Test: NEUTROPHILS %; Value: 56.5; Range: 36.0-66.0; Units: %; Status: F Test: LYMPH %; Value: 29.1; Range: 24.0-44.0; Units: %; Status: F Test: MONO %; Value: 6.3; Range: 0.0-5.0; Abnormal: Above high normal; Units: %; Status: F Test: EOS %; Value: 5.1; Range: 0.0-3.0; Abnormal: Above high normal; Units: %; Status: F Test: BASO %; Value: 0.3; Range: 0.0-1.0; Units: %; Status: F Test: LARGE UNSTAINED CELL %; Value: 2.7; Range: 0.0-4.0; Units: %; Status: F Test: NEUTROPHILS #; Value: 4.8; Range: 1.8-7.7; Units: K/mm3; Status: F Test: LYMPH #; Value: 2.5; Range: 1.5-6.5; Units: K/mm3; Status: F Test: MONO #; Value: 0.5; Range: 0.0-0.8; Units: K/mm3; Status: F Test: EOS #; Value: 0.4; Range: 0.0-0.50; Units: K/mm3; Status: F Test: BASO #; Value: 0.0; Range: 0.0-0.2; Units: K/mm3; Status: F Test: LARGE UNSTAINED CELL #; Value: 0.2; Range: 0.0-0.4; Units: K/mm3; Status: F Lab Order: MED Profile; SPEC'M 05/17/16 23:56 Test: GLUCOSE, FASTING; Value: 114; Range: 70-105; Abnormal: Above high normal; Units: MG/DL; Status: F Test: BLOOD UREA NITROGEN; Value: 16; Range: 7-18; Units: MG/DL; Status: F Test: CREATININE FOR GFR; Value: 0.93; Range: 0.55-1.02; Units: MG/DL; Status: F Test: SODIUM LEVEL; Range: 136-145; Units: MEQ/L; Status: I Test: POTASSIUM SERUM; Range: 3.5-5.1; Units: MEQ/L; Status: I Test: CHLORIDE LEVEL; Range: 98-107; Units: MEQ/L; Status: I Test: CARBON DIOXIDE LEVEL; Range: 21-32; Units: MEQ/L; Status: I Test: ANION GAP; Range: 8-16; Units: MEQ/L; Status: I Test: CALCIUM LEVEL; Range: 8.5-10.1; Units: MG/DL; Status: I Test: GLOMERULAR FILTRATION RATE; Value: > 60.0; Range: >60; Status: F Test: SODIUM LEVEL; Value: 143; Range: 136-145; Units: MEQ/L; Status: F Test: POTASSIUM SERUM; Value: 4.0; Range: 3.5-5.1; Units: MEQ/L; Status: F Test: CHLORIDE LEVEL; Value: 106; Range: 98-107; Units: MEQ/L; Status: F Test: CARBON DIOXIDE LEVEL; Value: 29; Range: 21-32; Units: MEQ/L; Status: F Test: ANION GAP; Value: 8; Range: 8-16; Units: MEQ/L; Status: F Test: CALCIUM LEVEL; Value: 8.8; Range: 8.5-10.1; Units: MG/DL; Status: F Test Note: ; Units are mL/min/1.73 m2 Chronic Kidney Disease Staging per NKF: Stage I & II GFR >=60 Normal to Mildly Decreased Stage III GFR 30-59 Moderately Decreased Stage IV GFR 15-29 Severely Decreased Stage V GFR <15 Very Little GFR Left ESRD GFR <15 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 Lab Order: Urinalysis; SPEC'M 05/17/16 23:56 Test: APPEARANCE, URINE; Value: CLOUDY; Range: CLEAR; Abnormal: Above high normal; Status: F Test: COLOR, URINE; Value: YELLOW; Range: YELLOW; Status: F Test: PH,URINE; Value: 5.0; Range: 5.0-9.0; Units: UNITS; Status: F Test: SPECIFIC GRAVITY URINE AUTO; Value: 1.025; Range: 1.002-1.035; Status: F Test: PROTEIN, URINE AUTO; Value: 1+; Range: NEGATIVE; Abnormal: Above high normal; Units: mg/dL; Status: F Test: GLUCOSE, URINE (UA) AUTO; Value: NEGATIVE; Range: NEGATIVE; Units: mg/dL; Status: F Test: KETONE, URINE AUTO; Value: NEGATIVE; Range: NEGATIVE; Units: mg/dL; Status: F Test: UROBILINOGEN, URINE AUTO; Value: 0.2; Range: 0.0-2.0; Units: mg/dL; Status: F Test: BILIRUBIN, URINE AUTO; Value: NEGATIVE; Range: NEGATIVE; Status: F Test: NITRITE, URINE AUTO; Value: NEGATIVE; Range: NEGATIVE; Status: F Test: LEUKOCYTE ESTERASE, URINE AUTO; Value: TRACE; Range: NEGATIVE; Abnormal: Above high normal; Status: F Test: BLOOD, URINE BLOOD; Value: 1+; Range: NEGATIVE; Abnormal: Above high normal; Status: F Test: WBC, URINE AUTO; Value: 12; Range: 0-3; Abnormal: Above high normal; Units: /HPF; Status: F Test: RBC, URINE AUTO; Value: 8; Range: 0-3; Abnormal: Above high normal; Units: /HPF; Status: F Test: BACTERIA, URINE AUTO; Value: 1+; Range: NEGATIVE; Abnormal: Above high normal; Status: F Test: SQUAMOUS EPITHELIAL CELL UR AU; Value: 60; Range: 0-6; Units: /HPF; Status: F Test: MUCUS, URINE; Value: SMALL; Range: NEGATIVE; Status: F Test: HYALINE CAST, URINE AUTO; Value: 0; Range: 0-1; Units: /LPF; Status: F Lab Order: HCG,Serum Qualitative; SPEC'M 05/17/16 23:56 Test: HCG, SERUM QUALITATIVE; Value: NEGATIVE; Range: NEGATIVE; Status: F Radiology Order: CT ABD & PELVIS: No Contrast Test: CT ABD & PELVIS: No Contrast REASON FOR EXAMINATION: Renal colic; ; CLINICAL HISTORY: Abdominal pain.; TECHNIQUE: Multiple axial, sagittal and coronal CT images were obtained through the abdomen and pelvi; s without administration of oral or IV contrast material.; COMMENTS:; The liver is of uniform attenuation without mass or defect. There is no intra or extrahepatic biliary; ductal dilatation. The spleen is normal. The gallbladder is within normal limits. The pancreas is of; normal contour and attenuation characteristics. There is no evidence of adrenal mass.; 4.5 mm obstructing calculus of the right ureterovesical junction. Mild right hydroureteronephrosis.; Moderate fecal stasis in the cecum.; Bilateral nonobstructing renal stones with the largest measuring 3 mm.; The kidneys are normal in size, shape and configuration.; There is no left hydroureter or hydronephrosis.; There is no evidence for appendicitis. There is no bowel wall thickening. No evidence for small or la; rge bowel obstruction. There is no evidence of abdominal ascites or lymphadenopathy.; There is no evidence of intrinsic or extrinsic bladder mass. There is no pelvic ascites or lymphadeno; [place].; 3.3 cm left ovarian cyst.; Images of the lung bases show no evidence of pleural or parenchymal mass.; There are no pleural effusions.; The bony structures are free of lytic or blastic lesions.; IMPRESSION:; Obstructing stone of the right ureterovesical junction. This stone was in the distal right ureter on; the prior exam performed on the 05/15/2016.; Bilateral nephrolithiasis. This is unchanged.; Unchanged left ovarian cyst.; ; Outcome: 06:01 Discharge ordered by Provider. cs11 06:26 Discharge Assessment: Patient awake, alert and oriented x 3. No cognitive and/or slm functional deficits noted. Patient verbalized understanding of disposition instructions. patient administered narcotics - yes. Pt provided with safe discharge. The following High Risk Discharge criteria are identified: None. Discharged to home ambulatory, with parent. Condition: good Condition: improved. Discharge instructions given to patient, Instructed on discharge instructions, follow up and referral plans. medication usage, Demonstrated understanding of instructions, medications, Pt was receptive of discharge instructions/ teaching. Prescriptions given X 2. CT Study completed. Property :Personal belongings accompany Pt. 06:28 Patient left the ED. [facility] 06:29 Patient left the ED. [facility] Signatures: Dispatcher [facility] Anu Tenorio, RN RN kmg1 Gagan Lopez, CHARU RN Faustina Stinson RN RN jo3 Whit, Beatriz, DIRECTOR PATIENT FINANCIAL SERVICES DIRECTOR PATIENT FINANCIAL SERVICES simin Phillip Chong, DO DO cs11 Josefina Fernandes,SUPERINTENDENT COMPRESSOR STATIONS SUPERINTENDENT COMPRESSOR STATIONS slm Terese Fowler, Reg Reg hs2 Cosme, Kate, DIRECTOR PATIENT FINANCIAL SERVICES DIRECTOR PATIENT FINANCIAL SERVICES cln Yamel Taylor lr2 Corrections: (The following items were deleted from the chart) 03:59 03:58 General: Appears in no apparent distress, comfortable, Behavior is appropriate [facility] for age, cooperative, quiet, [facility] 03:59 03:58 Pain: Pain currently is 2 out of 10 on a pain scale. [place] [id number] 04:00 03:00 Reassessment: Patient states feeling better. Patient states symptoms have kmg1 improved. Continues to vomit at intervals. [facility] 04:00 03:30 General: Appears in no apparent distress, comfortable, Behavior is appropriate [facility] for age, cooperative, quiet, [facility] 04:00 03:30 Pain: Pain currently is 2 out of 10 on a pain scale. [place] [id number] MTDD
--- NOTE | 2016-05-18 06:29 | EDDOCDS ---
Physician Documentation [facility] Name: Olive Peterson Age: 30 yrs Sex: Female : 1985 Arrival Date: 05/17/2016 Time: 23:26 Bed 17 Private MD: Disposition: 05/18/16 06:01 Discharged to Home/Self Care. Impression: Calculus of ureter, Urinary tract infection, site not specified. - Condition is Stable. - Prescriptions for Flomax 0.4 mg Oral Capsule, Sust. Release 24 hr - take 1 capsule by ORAL route once daily 1/2 hour following the same meal each day; 10 capsule. Cipro 500 mg Oral Tablet - take 1 tablet by ORAL route every 12 hours; 10 tablet. - Medication Reconciliation, Local Pharmacy Hours form. - Follow up: Private Physician; When: As previously arranged; Reason: Continuance of care. - Problem is new. - Symptoms have improved. Historical: - Allergies: No known drug Allergies; - Home Meds: 1. multivitamin Oral tab daily 2. Percocet 5-325 mg Oral tab 1 tab every 4 hours (Last dose: 05/17/2016 22:00) - PMHx: Kidney stones; PCOS; - PSHx: Lithotripsy; - Social history: Smoking status: No barriers to communication noted, The patient speaks fluent Bengali, Speaks appropriately for age, Smoking status: Patient uses tobacco products, heavy tobacco smoker. - Family history: Not pertinent. - : The pt / caregiver states he / she is not on anticoagulants. Home medication list is obtained from the patient. 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 DIRECTOR OF SOCIAL WORK: 05/17 23:34 LMP 04/20/2016 jo3 Vital Signs: 23:28 BP 153 / 78; Pulse 101; Resp 20; Temp 96.8(T); Pulse Ox 98% ; Weight 124.74 kg / 275 lr2 lbs (R); Height 5 ft. 9 in. (175.26 cm) (R); Pain 10; 05/18 01:03 BP 127 / 75; Pulse 86; Resp 16; Pain 4/10; cz 06:25 BP 143 / 85; Pulse 91; Resp 18; Temp 96.4(O); Pulse Ox 99% on R/A; Pain 2/10; simin 05/17 23:28 Body Mass Index 40.61 (124.74 kg, 175.26 cm) lr2 MDM: 05/17 23:49 IV Saline Lock ordered. cs11 23:49 NS 0.9% 1000 ml IV at bolus once ordered. cs11 23:49 ketorolac 30 mg IVP once ordered. cs11 23:50 CBC with Diff Ordered. EDMS 23:50 MED Profile Ordered. EDMS 23:50 Urinalysis Ordered. EDMS 23:50 HCG,Serum Qualitative Ordered. EDMS 23:50 Urine Culture Ordered. EDMS 23:51 CT ABD & PELVIS: No Contrast Ordered. EDMS 05/18 00:05 Dilaudid - HYDROmorphone 1 mg IVP once ordered. cs11 00:36 CBC with Diff Reviewed. cs11 00:36 Urinalysis Reviewed. cs11 00:36 HCG,Serum Qualitative Reviewed. cs11 00:37 Ciprofloxacin 400 mg IVPB at 200 mL/hr once over 60 mins ordered. cs11 00:48 Metoclopramide 10 mg IV at 40 mg/hr once over 15 mins ordered. cs11 00:59 NS 0.9% 1000 ml IV at bolus once ordered. cs11 02:08 Dilaudid - HYDROmorphone 1 mg IVP once ordered. cs11 03:18 Tamsulosin Extended Release 24 hour Capsule 0.4 mg PO once ordered. cs11 03:19 NS 0.9% 1000 ml IV at bolus once ordered. cs11 03:28 Financial registration complete. hs2 03:39 [facility] Payment Agreement was scanned into [address] and attached to record. hs2 06:03 MED Profile Reviewed. cs11 06:03 HCG,Serum Qualitative Reviewed. cs11 06:03 CT ABD & PELVIS: No Contrast Reviewed. cs11 Administered Medications: 00:00 Drug: NS 0.9% 1000 ml [sodium chloride 0.9 % intravenous solution] Route: IV; Rate: cz bolus; Site: right forearm; 00:02 Drug: ketorolac 30 mg [ketorolac 30 mg/mL (1 mL) injection solution (1 mL)] Route: IVP; cz Site: right forearm; 00:10 Drug: Dilaudid - HYDROmorphone 1 mg [hydromorphone 1 mg/mL injection syringe (1 mL)] cz Route: IVP; Site: right forearm; 01:03 Follow up: BP 127 / 75; Pulse 86 bpm; Resp 16 bpm; Pain 4/10 Adult; Response: Pain is cz decreased 01:00 Drug: Ciprofloxacin 400 mg [ciprofloxacin 400 mg/200 mL in 5 % dextrose intravenous cz piggyback] Route: IVPB; Rate: 200 mL/hr; Infused Over: 60 mins; Site: right forearm; 01:00 Drug: Metoclopramide 10 mg [metoclopramide 5 mg/mL injection solution] Route: IV; Rate: cz 40 mg/hr; Infused Over: 15 mins; Site: right forearm; 01:03 Drug: NS 0.9% 1000 ml [sodium chloride 0.9 % intravenous solution] Route: IV; Rate: cz bolus; Site: right forearm; 02:37 Drug: Dilaudid - HYDROmorphone 1 mg [hydromorphone 1 mg/mL injection syringe (1 mL)] kmg1 Route: IVP; Site: right antecubital; 03:00 Follow up: Response: Pain is decreased kmg1 03:24 Drug: Tamsulosin 0.4 mg [tamsulosin 0.4 mg capsule (1 caps)] Route: PO; cz 03:50 Drug: NS 0.9% 1000 ml [sodium chloride 0.9 % intravenous solution] Route: IV; Rate: kmg1 bolus; Site: right subclavian; 06:27 Follow up: IV Status: Completed infusion; IV Intake: 1000ml [facility] Signatures: Dispatcher [employer] EDMS Gagan Lopez RN RN cz Helmerci, Jennifer, RN RN joPhillip Marie, DO cs11 Josefina Fernandes LPN LPN [facility] Terese Fowler, Reg Reg hs2 Anu Schneider RN km The chart was reviewed and I authenticate all verbal orders and agree with the evaluation and treatment provided.Attachments: 03:39 [facility] Payment Agreement hs2 MTDD
--- NOTE | 2016-05-20 07:29 | EDDOCDS ---
Physician Documentation [facility] Name: Olive Peterson Age: 30 yrs Sex: Female : 1985 Arrival Date: 05/17/2016 Time: 23:26 Bed 17 Private MD: Disposition: 05/18/16 06:01 Discharged to Home/Self Care. Impression: Calculus of ureter, Urinary tract infection, site not specified. - Condition is Stable. - Prescriptions for Flomax 0.4 mg Oral Capsule, Sust. Release 24 hr - take 1 capsule by ORAL route once daily 1/2 hour following the same meal each day; 10 capsule. Cipro 500 mg Oral Tablet - take 1 tablet by ORAL route every 12 hours; 10 tablet. - Medication Reconciliation, Local Pharmacy Hours form. - Follow up: Private Physician; When: As previously arranged; Reason: Continuance of care. - Problem is new. - Symptoms have improved. Historical: - Allergies: No known drug Allergies; - Home Meds: 1. multivitamin Oral tab daily 2. Percocet 5-325 mg Oral tab 1 tab every 4 hours (Last dose: 05/17/2016 22:00) - PMHx: Kidney stones; PCOS; - PSHx: Lithotripsy; - Social history: Smoking status: No barriers to communication noted, The patient speaks fluent Albanian, Speaks appropriately for age, Smoking status: Patient uses tobacco products, heavy tobacco smoker. - Family history: Not pertinent. - : The pt / caregiver states he / she is not on anticoagulants. Home medication list is obtained from the patient. 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 9 in. (175.26 cm) (R); Pain 10; 05/18 01:03 BP 127 / 75; Pulse 86; Resp 16; Pain 4/10; cz 06:25 BP 143 / 85; Pulse 91; Resp 18; Temp 96.4(O); Pulse Ox 99% on R/A; Pain 2/10; simin 05/17 23:28 Body Mass Index 40.61 (124.74 kg, 175.26 cm) lr2 MDM: 05/17 23:49 IV Saline Lock ordered. cs11 23:49 NS 0.9% 1000 ml IV at bolus once ordered. cs11 23:49 ketorolac 30 mg IVP once ordered. cs11 23:50 CBC with Diff Ordered. EDMS 23:50 MED Profile Ordered. EDMS 23:50 Urinalysis Ordered. EDMS 23:50 HCG,Serum Qualitative Ordered. EDMS 23:50 Urine Culture Ordered. EDMS 23:51 CT ABD & PELVIS: No Contrast Ordered. EDMS 05/18 00:05 Dilaudid - HYDROmorphone 1 mg IVP once ordered. cs11 00:36 CBC with Diff Reviewed. cs11 00:36 Urinalysis Reviewed. cs11 00:36 HCG,Serum Qualitative Reviewed. cs11 00:37 Ciprofloxacin 400 mg IVPB at 200 mL/hr once over 60 mins ordered. cs11 00:48 Metoclopramide 10 mg IV at 40 mg/hr once over 15 mins ordered. cs11 00:59 NS 0.9% 1000 ml IV at bolus once ordered. cs11 02:08 Dilaudid - HYDROmorphone 1 mg IVP once ordered. cs11 03:18 Tamsulosin Extended Release 24 hour Capsule 0.4 mg PO once ordered. cs11 03:19 NS 0.9% 1000 ml IV at bolus once ordered. cs11 03:28 Financial registration complete. hs2 03:39 [facility] Payment Agreement was scanned into [employer] and attached to record. hs2 06:03 MED Profile Reviewed. cs11 06:03 HCG,Serum Qualitative Reviewed. cs11 06:03 CT ABD & PELVIS: No Contrast Reviewed. cs11 09:20 T-Sheet-- Draft Copy was scanned into [employer] and attached to record. gb Administered Medications: 00:00 Drug: NS 0.9% 1000 ml [sodium chloride 0.9 % intravenous solution] Route: IV; Rate: cz bolus; Site: right forearm; 00:02 Drug: ketorolac 30 mg [ketorolac 30 mg/mL (1 mL) injection solution (1 mL)] Route: IVP; cz Site: right forearm; 00:10 Drug: Dilaudid - HYDROmorphone 1 mg [hydromorphone 1 mg/mL injection syringe (1 mL)] cz Route: IVP; Site: right forearm; 01:03 Follow up: BP 127 / 75; Pulse 86 bpm; Resp 16 bpm; Pain 4/10 Adult; Response: Pain is cz decreased 01:00 Drug: Ciprofloxacin 400 mg [ciprofloxacin 400 mg/200 mL in 5 % dextrose intravenous cz piggyback] Route: IVPB; Rate: 200 mL/hr; Infused Over: 60 mins; Site: right forearm; 01:00 Drug: Metoclopramide 10 mg [metoclopramide 5 mg/mL injection solution] Route: IV; Rate: cz 40 mg/hr; Infused Over: 15 mins; Site: right forearm; 01:03 Drug: NS 0.9% 1000 ml [sodium chloride 0.9 % intravenous solution] Route: IV; Rate: cz bolus; Site: right forearm; 02:37 Drug: Dilaudid - HYDROmorphone 1 mg [hydromorphone 1 mg/mL injection syringe (1 mL)] kmg1 Route: IVP; Site: right antecubital; 03:00 Follow up: Response: Pain is decreased kmg1 03:24 Drug: Tamsulosin 0.4 mg [tamsulosin 0.4 mg capsule (1 caps)] Route: PO; cz 03:50 Drug: NS 0.9% 1000 ml [sodium chloride 0.9 % intravenous solution] Route: IV; Rate: kmg1 bolus; Site: right subclavian; 06:27 Follow up: IV Status: Completed infusion; IV Intake: 1000ml sl Signatures: Dispatcher [employer] EDMS Gagan Lopez RN RN cz Barnhardt, Gloria, Reg Reg gb Faustina Tatum RN RN Phillip Sweet, DO cs11 Josefina Fernandes LPN LPN slm Terese Fowler, Reg Reg hs2 Anu Schneider RN kmg1 The chart was reviewed and I authenticate all verbal orders and agree with the evaluation and treatment provided.Attachments: 03:39 [facility] Payment Agreement hs2 09:20 T-Sheet-- Draft Copy Chart Complete MTDD
--- NOTE | 2016-05-20 07:29 | EDDOCDS ---
Physician Documentation [facility] Name: Olive Peterson Age: 30 yrs Sex: Female : 1985 Arrival Date: 05/17/2016 Time: 23:26 Bed 17 Private MD: Disposition: 05/18/16 06:01 Discharged to Home/Self Care. Impression: Calculus of ureter, Urinary tract infection, site not specified. - Condition is Stable. - Prescriptions for Flomax 0.4 mg Oral Capsule, Sust. Release 24 hr - take 1 capsule by ORAL route once daily 1/2 hour following the same meal each day; 10 capsule. Cipro 500 mg Oral Tablet - take 1 tablet by ORAL route every 12 hours; 10 tablet. - Medication Reconciliation, Local Pharmacy Hours form. - Follow up: Private Physician; When: As previously arranged; Reason: Continuance of care. - Problem is new. - Symptoms have improved. Historical: - Allergies: No known drug Allergies; - Home Meds: 1. multivitamin Oral tab daily 2. Percocet 5-325 mg Oral tab 1 tab every 4 hours (Last dose: 05/17/2016 22:00) - PMHx: Kidney stones; PCOS; - PSHx: Lithotripsy; - Social history: Smoking status: No barriers to communication noted, The patient speaks fluent Indonesian, Speaks appropriately for age, Smoking status: Patient uses tobacco products, heavy tobacco smoker. - Family history: Not pertinent. - : The pt / caregiver states he / she is not on anticoagulants. Home medication list is obtained from the patient. 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 9 in. (175.26 cm) (R); Pain 10; 05/18 01:03 BP 127 / 75; Pulse 86; Resp 16; Pain 4/10; cz 06:25 BP 143 / 85; Pulse 91; Resp 18; Temp 96.4(O); Pulse Ox 99% on R/A; Pain 2/10; simin 05/17 23:28 Body Mass Index 40.61 (124.74 kg, 175.26 cm) lr2 MDM: 05/17 23:49 IV Saline Lock ordered. cs11 23:49 NS 0.9% 1000 ml IV at bolus once ordered. cs11 23:49 ketorolac 30 mg IVP once ordered. cs11 23:50 CBC with Diff Ordered. EDMS 23:50 MED Profile Ordered. EDMS 23:50 Urinalysis Ordered. EDMS 23:50 HCG,Serum Qualitative Ordered. EDMS 23:50 Urine Culture Ordered. EDMS 23:51 CT ABD & PELVIS: No Contrast Ordered. EDMS 05/18 00:05 Dilaudid - HYDROmorphone 1 mg IVP once ordered. cs11 00:36 CBC with Diff Reviewed. cs11 00:36 Urinalysis Reviewed. cs11 00:36 HCG,Serum Qualitative Reviewed. cs11 00:37 Ciprofloxacin 400 mg IVPB at 200 mL/hr once over 60 mins ordered. cs11 00:48 Metoclopramide 10 mg IV at 40 mg/hr once over 15 mins ordered. cs11 00:59 NS 0.9% 1000 ml IV at bolus once ordered. cs11 02:08 Dilaudid - HYDROmorphone 1 mg IVP once ordered. cs11 03:18 Tamsulosin Extended Release 24 hour Capsule 0.4 mg PO once ordered. cs11 03:19 NS 0.9% 1000 ml IV at bolus once ordered. cs11 03:28 Financial registration complete. hs2 03:39 [facility] Payment Agreement was scanned into [employer] and attached to record. hs2 06:03 MED Profile Reviewed. cs11 06:03 HCG,Serum Qualitative Reviewed. cs11 06:03 CT ABD & PELVIS: No Contrast Reviewed. cs11 09:20 T-Sheet-- Draft Copy was scanned into [employer] and attached to record. gb Administered Medications: 00:00 Drug: NS 0.9% 1000 ml [sodium chloride 0.9 % intravenous solution] Route: IV; Rate: cz bolus; Site: right forearm; 00:02 Drug: ketorolac 30 mg [ketorolac 30 mg/mL (1 mL) injection solution (1 mL)] Route: IVP; cz Site: right forearm; 00:10 Drug: Dilaudid - HYDROmorphone 1 mg [hydromorphone 1 mg/mL injection syringe (1 mL)] cz Route: IVP; Site: right forearm; 01:03 Follow up: BP 127 / 75; Pulse 86 bpm; Resp 16 bpm; Pain 4/10 Adult; Response: Pain is cz decreased 01:00 Drug: Ciprofloxacin 400 mg [ciprofloxacin 400 mg/200 mL in 5 % dextrose intravenous cz piggyback] Route: IVPB; Rate: 200 mL/hr; Infused Over: 60 mins; Site: right forearm; 01:00 Drug: Metoclopramide 10 mg [metoclopramide 5 mg/mL injection solution] Route: IV; Rate: cz 40 mg/hr; Infused Over: 15 mins; Site: right forearm; 01:03 Drug: NS 0.9% 1000 ml [sodium chloride 0.9 % intravenous solution] Route: IV; Rate: cz bolus; Site: right forearm; 02:37 Drug: Dilaudid - HYDROmorphone 1 mg [hydromorphone 1 mg/mL injection syringe (1 mL)] kmg1 Route: IVP; Site: right antecubital; 03:00 Follow up: Response: Pain is decreased kmg1 03:24 Drug: Tamsulosin 0.4 mg [tamsulosin 0.4 mg capsule (1 caps)] Route: PO; cz 03:50 Drug: NS 0.9% 1000 ml [sodium chloride 0.9 % intravenous solution] Route: IV; Rate: kmg1 bolus; Site: right subclavian; 06:27 Follow up: IV Status: Completed infusion; IV Intake: 1000ml sl Signatures: Dispatcher [employer] EDMS Gagan Lopez RN RN cz Barnhardt, Gloria, Reg Reg gb Faustina Tatum RN RN Phillip Sweet, DO cs11 Josefina Fernandes LPN LPN slm Terese Fowler, Reg Reg hs2 Anu Schneider RN kmg1 The chart was reviewed and I authenticate all verbal orders and agree with the evaluation and treatment provided.Attachments: 03:39 [facility] Payment Agreement hs2 09:20 T-Sheet-- Draft Copy Chart Complete MTDD
--- NOTE | 2016-05-20 07:29 | EDDOCDS ---
Nurse's Notes [facility] Name: Olive Peterson Age: 30 yrs Sex: Female : 1985 Arrival Date: 05/17/2016 Time: 23:26 Bed 17 Private MD: Diagnosis: Calculus of ureter;Urinary tract infection, site not specified Presentation: 05/17 23:33 Presenting complaint: Patient states: Diagnosed with 3mm and 2 mm kidney stones Wednesday. jo3 Pain medications are not working. Acute neurological deficits are not present. Mechanism of Injury: No Mechanism of Injury. Adult Sepsis Screening: The patient does not have new or worsening altered mentation. Patient's respiratory rate is less than 22. Systolic blood pressure is greater than 100. Patient has a qSOFA score of 0- Negative Sepsis Screen. Suicide/Homicide risk assessment- the patient denies having any suicidal and/or homicidal ideations and does not present with any other emotional, behavioral or mental health complaints. 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 Transition of care: patient was not received from another setting of care. 23:33 Acuity: MYNOR Level 3 jo3 23:33 Method Of Arrival: Walkin/Carried/Asstd jo3 Triage Assessment: 23:34 General: Appears uncomfortable, Behavior is appropriate for age, cooperative. Pain: jo3 Pain currently is 10 out of 10 on a pain scale. HIV screening NA for this visit Offered previously. Neurological: Level of Consciousness is awake, alert, Oriented to person, place, time. Derm: Skin is pink, warm & dry. 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 multivitamin Oral tab daily 2. Percocet 5-325 mg Oral tab 1 tab every 4 hours (Last dose: 05/17/2016 22:00) - PMHx: Kidney stones; PCOS; - PSHx: Lithotripsy; - Social history: Smoking status: No barriers to communication noted, The patient speaks fluent Armenian, Speaks appropriately for age, Smoking status: Patient uses tobacco products, heavy tobacco smoker. - Family history: Not pertinent. - : The pt / caregiver states he / she is not on anticoagulants. Home medication list is obtained from the patient. 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 Screenin/27 00:06 Screening information is obtained from the patient. Fall risk: No risks identified. cz Assistance ADL's: requires no assistance with activities of daily living. Abuse/DV Screen: The patient / caregiver reports he/she is: not in a situation that causes fear, pain or injury. Nutritional screening: No deficits noted. home support is adequate. 02:03 Advance Directives: There is no active DNR order. kmg1 Assessment: 00:06 General: alert female with right sided flank pain seen here for same recently. cz 02:03 General: Appears in no apparent distress, comfortable, Behavior is appropriate for age, kmg1 cooperative, pleasant. Pain: Location: right flank, right inguinal area and right iliac crest Pain currently is 7 out of 10 on a pain scale. Musculoskeletal: No deficits noted. 03:00 General: Appears in no apparent distress, comfortable, Behavior is appropriate for age, kmg1 cooperative, pleasant. Pain: Location: right iliac crest and right inguinal area and right flank Pain currently is 2 out of 10 on a pain scale. Quality of pain is described as sharp. Respiratory: Airway is patent Respiratory effort is even, unlabored, Respiratory pattern is regular, symmetrical. 04:24 Reassessment: Patient appears in no apparent distress at this time. Patient states kmg1 feeling better. Patient states symptoms have improved. 06:26 Reassessment: Patient appears in no apparent distress at this time. Patient states slm symptoms have improved. Respiratory: Airway is patent Respiratory effort is even, unlabored, Respiratory pattern is regular. Vital Signs: 05/17 23:28 BP 153 / 78; Pulse 101; Resp 20; Temp 96.8(T); Pulse Ox 98% ; Weight 124.74 kg (R); lr2 Height 5 ft. 9 in. (175.26 cm) (R); Pain 10/10; 05/18 01:03 BP 127 / 75; Pulse 86; Resp 16; Pain 4/10; cz 06:25 BP 143 / 85; Pulse 91; Resp 18; Temp 96.4(O); Pulse Ox 99% on R/A; Pain 2/10; simin 05/17 23:28 Body Mass Index 40.61 (124.74 kg, 175.26 cm) lr2 Vitals: 05/17 23:28 Log In Time: May 17, 2016 at 23:26. lr2 ED Course: 23:27 Patient visited by Yamel Taylor. lr2 23:27 Patient moved to Waiting lr2 23:29 Patient moved to Pre RCE lr2 23:34 Triage Initiated jo3 23:35 Patient visited by Faustina Tatum RN. jo3 23:47 Patient moved to 17 cz 23:48 Phillip Chong DO is Attending Physician. cs11 23:48 Patient visited by Phillip Chong DO. cs11 23:57 Urine Culture Sent. cln 23:57 Urinalysis Sent. cln 02 00:04 HCG,Serum Qualitative Sent. cz 00:04 MED Profile Sent. cz 00:05 CBC with Diff Sent. cz 00:06 The patient / caregiver is instructed regarding the plan of care and ED course. cz 00:06 Inserted saline lock: 20 gauge in right forearm. No procedures done that require cz assistance. 00:48 Patient visited by Gagan Lopez RN. cz 01:50 CT ABD & PELVIS: No Contrast Returned. EDMS 02:31 Patient visited by Beatriz Sherman PCA. simin 02:38 Patient visited by Anu Schneider RN. kmg1 03:39 [facility] Payment Agreement was scanned into [employer] and attached to record. hs2 04:34 Patient visited by Beatriz Sherman PCA. simin 05:39 Patient visited by Beatriz Sherman PCA. simin 06:25 Patient visited by Beatriz Sherman PCA. simin 06:26 Discontinued lock intact, bleeding controlled, pressure dressing applied, No slm redness/swelling at site. 09:20 T-Sheet-- Draft Copy was scanned into [employer] and attached to record. gb Administered Medications: 00:00 Drug: NS 0.9% 1000 ml [sodium chloride 0.9 % intravenous solution] Route: IV; Rate: cz bolus; Site: right forearm; 00:02 Drug: ketorolac 30 mg [ketorolac 30 mg/mL (1 mL) injection solution (1 mL)] Route: IVP; cz Site: right forearm; 00:10 Drug: Dilaudid - HYDROmorphone 1 mg [hydromorphone 1 mg/mL injection syringe (1 mL)] cz Route: IVP; Site: right forearm; 01:03 Follow up: BP 127 / 75; Pulse 86 bpm; Resp 16 bpm; Pain 4/10 Adult; Response: Pain is cz decreased 01:00 Drug: Ciprofloxacin 400 mg [ciprofloxacin 400 mg/200 mL in 5 % dextrose intravenous cz piggyback] Route: IVPB; Rate: 200 mL/hr; Infused Over: 60 mins; Site: right forearm; 01:00 Drug: Metoclopramide 10 mg [metoclopramide 5 mg/mL injection solution] Route: IV; Rate: cz 40 mg/hr; Infused Over: 15 mins; Site: right forearm; 01:03 Drug: NS 0.9% 1000 ml [sodium chloride 0.9 % intravenous solution] Route: IV; Rate: cz bolus; Site: right forearm; 02:37 Drug: Dilaudid - HYDROmorphone 1 mg [hydromorphone 1 mg/mL injection syringe (1 mL)] kmg1 Route: IVP; Site: right antecubital; 03:00 Follow up: Response: Pain is decreased kmg1 03:24 Drug: Tamsulosin 0.4 mg [tamsulosin 0.4 mg capsule (1 caps)] Route: PO; cz 03:50 Drug: NS 0.9% 1000 ml [sodium chloride 0.9 % intravenous solution] Route: IV; Rate: kmg1 bolus; Site: right subclavian; 06:27 Follow up: IV Status: Completed infusion; IV Intake: 1000ml slm Intake: 06:27 IV: 1000.00ml; Total: 1000.00ml. slm Order Results: Lab Order: CBC with Diff; SPEC'M 05/17/16 23:56 Test: WHITE BLOOD COUNT; Value: 8.5; Range: 4.0-10.0; Units: K/mm3; Status: F Test: RED BLOOD COUNT; Value: 4.57; Range: 4.00-5.40; Units: M/mm3; Status: F Test: HEMOGLOBIN; Value: 14.1; Range: 12.0-16.0; Units: g/dl; Status: F Test: HEMATOCRIT; Value: 40.5; Range: 36.0-47.0; Units: %; Status: F Test: MEAN CORPUSCULAR VOLUME; Value: 88.7; Range: 80.0-96.0; Units: fl; Status: F Test: MEAN CORPUSCULAR HEMOGLOBIN; Value: 30.8; Range: 27.0-33.0; Units: pg; Status: F Test: MEAN CORPUSCULAR HGB CONC; Value: 34.7; Range: 32.0-36.5; Units: g/dl; Status: F Test: RED CELL DISTRIBUTION WIDTH; Value: 12.1; Range: 11.5-14.5; Units: %; Status: F Test: PLATELET COUNT, AUTOMATED; Value: 268; Range: 150-450; Units: k/mm3; Status: F Test: NEUTROPHILS %; Value: 56.5; Range: 36.0-66.0; Units: %; Status: F Test: LYMPH %; Value: 29.1; Range: 24.0-44.0; Units: %; Status: F Test: MONO %; Value: 6.3; Range: 0.0-5.0; Abnormal: Above high normal; Units: %; Status: F Test: EOS %; Value: 5.1; Range: 0.0-3.0; Abnormal: Above high normal; Units: %; Status: F Test: BASO %; Value: 0.3; Range: 0.0-1.0; Units: %; Status: F Test: LARGE UNSTAINED CELL %; Value: 2.7; Range: 0.0-4.0; Units: %; Status: F Test: NEUTROPHILS #; Value: 4.8; Range: 1.8-7.7; Units: K/mm3; Status: F Test: LYMPH #; Value: 2.5; Range: 1.5-6.5; Units: K/mm3; Status: F Test: MONO #; Value: 0.5; Range: 0.0-0.8; Units: K/mm3; Status: F Test: EOS #; Value: 0.4; Range: 0.0-0.50; Units: K/mm3; Status: F Test: BASO #; Value: 0.0; Range: 0.0-0.2; Units: K/mm3; Status: F Test: LARGE UNSTAINED CELL #; Value: 0.2; Range: 0.0-0.4; Units: K/mm3; Status: F Lab Order: MED Profile; SPEC'M 05/17/16 23:56 Test: GLUCOSE, FASTING; Value: 114; Range: 70-105; Abnormal: Above high normal; Units: MG/DL; Status: F Test: BLOOD UREA NITROGEN; Value: 16; Range: 7-18; Units: MG/DL; Status: F Test: CREATININE FOR GFR; Value: 0.93; Range: 0.55-1.02; Units: MG/DL; Status: F Test: SODIUM LEVEL; Range: 136-145; Units: MEQ/L; Status: I Test: POTASSIUM SERUM; Range: 3.5-5.1; Units: MEQ/L; Status: I Test: CHLORIDE LEVEL; Range: 98-107; Units: MEQ/L; Status: I Test: CARBON DIOXIDE LEVEL; Range: 21-32; Units: MEQ/L; Status: I Test: ANION GAP; Range: 8-16; Units: MEQ/L; Status: I Test: CALCIUM LEVEL; Range: 8.5-10.1; Units: MG/DL; Status: I Test: GLOMERULAR FILTRATION RATE; Value: > 60.0; Range: >60; Status: F Test: SODIUM LEVEL; Value: 143; Range: 136-145; Units: MEQ/L; Status: F Test: POTASSIUM SERUM; Value: 4.0; Range: 3.5-5.1; Units: MEQ/L; Status: F Test: CHLORIDE LEVEL; Value: 106; Range: 98-107; Units: MEQ/L; Status: F Test: CARBON DIOXIDE LEVEL; Value: 29; Range: 21-32; Units: MEQ/L; Status: F Test: ANION GAP; Value: 8; Range: 8-16; Units: MEQ/L; Status: F Test: CALCIUM LEVEL; Value: 8.8; Range: 8.5-10.1; Units: MG/DL; Status: F Test Note: ; Units are mL/min/1.73 m2 Chronic Kidney Disease Staging per NKF: Stage I & II GFR >=60 Normal to Mildly Decreased Stage III GFR 30-59 Moderately Decreased Stage IV GFR 15-29 Severely Decreased Stage V GFR <15 Very Little GFR Left ESRD GFR <15 on DIRECTOR OF PHILANTHROPY Lab Order: Urinalysis; SPEC'M 05/17/16 23:56 Test: APPEARANCE, URINE; Value: CLOUDY; Range: CLEAR; Abnormal: Above high normal; Status: F Test: COLOR, URINE; Value: YELLOW; Range: YELLOW; Status: F Test: PH,URINE; Value: 5.0; Range: 5.0-9.0; Units: UNITS; Status: F Test: SPECIFIC GRAVITY URINE AUTO; Value: 1.025; Range: 1.002-1.035; Status: F Test: PROTEIN, URINE AUTO; Value: 1+; Range: NEGATIVE; Abnormal: Above high normal; Units: mg/dL; Status: F Test: GLUCOSE, URINE (UA) AUTO; Value: NEGATIVE; Range: NEGATIVE; Units: mg/dL; Status: F Test: KETONE, URINE AUTO; Value: NEGATIVE; Range: NEGATIVE; Units: mg/dL; Status: F Test: UROBILINOGEN, URINE AUTO; Value: 0.2; Range: 0.0-2.0; Units: mg/dL; Status: F Test: BILIRUBIN, URINE AUTO; Value: NEGATIVE; Range: NEGATIVE; Status: F Test: NITRITE, URINE AUTO; Value: NEGATIVE; Range: NEGATIVE; Status: F Test: LEUKOCYTE ESTERASE, URINE AUTO; Value: TRACE; Range: NEGATIVE; Abnormal: Above high normal; Status: F Test: BLOOD, URINE BLOOD; Value: 1+; Range: NEGATIVE; Abnormal: Above high normal; Status: F Test: WBC, URINE AUTO; Value: 12; Range: 0-3; Abnormal: Above high normal; Units: /HPF; Status: F Test: RBC, URINE AUTO; Value: 8; Range: 0-3; Abnormal: Above high normal; Units: /HPF; Status: F Test: BACTERIA, URINE AUTO; Value: 1+; Range: NEGATIVE; Abnormal: Above high normal; Status: F Test: SQUAMOUS EPITHELIAL CELL UR AU; Value: 60; Range: 0-6; Units: /HPF; Status: F Test: MUCUS, URINE; Value: SMALL; Range: NEGATIVE; Status: F Test: HYALINE CAST, URINE AUTO; Value: 0; Range: 0-1; Units: /LPF; Status: F Lab Order: Urine Culture; SPEC'M 05/17/16 23:56 Test: URINE CULTURE; Value: <EXTERNAL COMMENT eCWMed> FULL REPORT IN LAB NOTES (eCW and Medent).; Status: F Test: URINE CULTURE; Value: URINE CULTURE RESULT SPECIMEN APPEARS CONTAMINATED; Status: F Lab Order: HCG,Serum Qualitative; SPEC'M 05/17/16 23:56 Test: HCG, SERUM QUALITATIVE; Value: NEGATIVE; Range: NEGATIVE; Status: F Radiology Order: CT ABD & PELVIS: No Contrast Test: CT ABD & PELVIS: No Contrast REASON FOR EXAMINATION: Renal colic; ; CLINICAL HISTORY: Abdominal pain.; TECHNIQUE: Multiple axial, sagittal and coronal CT images were obtained through the abdomen and pelvi; s without administration of oral or IV contrast material.; COMMENTS:; The liver is of uniform attenuation without mass or defect. There is no intra or extrahepatic biliary; ductal dilatation. The spleen is normal. The gallbladder is within normal limits. The pancreas is of; normal contour and attenuation characteristics. There is no evidence of adrenal mass.; 4.5 mm obstructing calculus of the right ureterovesical junction. Mild right hydroureteronephrosis.; Moderate fecal stasis in the cecum.; Bilateral nonobstructing renal stones with the largest measuring 3 mm.; The kidneys are normal in size, shape and configuration.; There is no left hydroureter or hydronephrosis.; There is no evidence for appendicitis. There is no bowel wall thickening. No evidence for small or la; rge bowel obstruction. There is no evidence of abdominal ascites or lymphadenopathy.; There is no evidence of intrinsic or extrinsic bladder mass. There is no pelvic ascites or lymphadeno; [place].; 3.3 cm left ovarian cyst.; Images of the lung bases show no evidence of pleural or parenchymal mass.; There are no pleural effusions.; The bony structures are free of lytic or blastic lesions.; IMPRESSION:; Obstructing stone of the right ureterovesical junction. This stone was in the distal right ureter on; the prior exam performed on the 05/15/2016.; Bilateral nephrolithiasis. This is unchanged.; Unchanged left ovarian cyst.; ; Outcome: 06:01 Discharge ordered by Provider. cs11 06:26 Discharge Assessment: Patient awake, alert and oriented x 3. No cognitive and/or slm functional deficits noted. Patient verbalized understanding of disposition instructions. patient administered narcotics - yes. Pt provided with safe discharge. The following High Risk Discharge criteria are identified: None. Discharged to home ambulatory, with parent. Condition: good Condition: improved. Discharge instructions given to patient, Instructed on discharge instructions, follow up and referral plans. medication usage, Demonstrated understanding of instructions, medications, Pt was receptive of discharge instructions/ teaching. Prescriptions given X 2. CT Study completed. Property :Personal belongings accompany Pt. 06:28 Patient left the ED. [facility] 06:29 Patient left the ED. [facility] Signatures: Dispatcher [employer] EDMS Anu Schneider, RN RN g1 Gagan Lopez RN RN cz Julia Galarza, Reg Reg gb Faustina TatumRN RN jo3 Beatriz Sherman, MATERIALS ANALYST MATERIALS ANALYST simin Phillip Chong, DO DO cs11 Josefina Fernandes,SURGICAL DEVICE SALES REPRESENTATIVE SURGICAL DEVICE SALES REPRESENTATIVE slm Terese Fowler, Reg Reg hs2 Kate Aguiar, MATERIALS ANALYST MATERIALS ANALYST cln Yamel Taylor lr2 Corrections: (The following items were deleted from the chart) 03:59 03:58 General: Appears in no apparent distress, comfortable, Behavior is appropriate [facility] for [facility], cooperative, quiet, [facility] 03:59 03:58 Pain: Pain currently is 2 out of 10 on a pain scale. [place] [id number] 04:00 03:00 Reassessment: Patient states feeling better. Patient states symptoms have kmg1 improved. Continues to vomit at intervals. [facility] 04:00 03:30 General: Appears in no apparent distress, comfortable, Behavior is appropriate [facility] for age, cooperative, quiet, [facility] 04:00 03:30 Pain: Pain currently is 2 out of 10 on a pain scale. [place] [id number] Chart Complete MTDD
== END 2016-05-18 06:29 | disposition home or self-care (01) ==
LOC: M ED 23:26
DX: N20.1 Calculus of ureter (principal); N39.0 Urinary tract infection, site not specified; Z87.442 Personal history of urinary calculi; E28.2 Polycystic ovarian syndrome; F17.210 Nicotine dependence, cigarettes, uncomplicated
CPT/HCPCS: 74176; 80048; 81001; 84703; 85025; 87086; 96361; 96374; 96375; 96376; 99284; J0744; J1170; J1885; J2765

== ENCOUNTER → 2016-05-19 | Outpatient (REF) | payer OTHER, BC | LOC: M SFHCLERA 11:11 | PROVIDERS: ATTEND Family Medicine | DX: Z23 Encounter for immunization (principal) ==

== ENCOUNTER → 2018-03-08 | Outpatient (REF) | payer BC ==
[2018-03-08 12:05] LABS: CHOLESTEROL RISK RATIO 4.727 (<5)
== END ==
LOC: M SFHCLERA 08:51
PROVIDERS: ATTEND Family Medicine
DX: E66.01 Morbid (severe) obesity due to excess calories (principal)

== ENCOUNTER → 2018-03-29 | Outpatient (REF) | payer BC ==
[2018-03-31 15:05] LABS: HPV HYBRID CAPTURE II Negative (Negative)
== END ==
LOC: M LAB REF 09:36
PROVIDERS: ATTEND Advanced Practice Midwife
DX: Z12.4 Encounter for screening for malignant neoplasm of cervix (principal)
CPT/HCPCS: 87624; G0123

== ENCOUNTER → 2018-04-04 | Outpatient (CLI) | payer BC ==
--- NOTE | 2018-04-05 05:55 | REP ---
Clinical: Dysmenorrhea and history of infertility. Technique: Transabdominal pelvic ultrasound followed by transvaginal examination for better evaluation of the endometrium and adnexa with color evaluation of the ovaries. Findings: Bladder is unremarkable and measures 13.2 x 6.1 x 8.6 cm . Normal anteverted uterus measures 7.9 x 2.7 x 4.9 cm . The endometrial complex measures 9.5 mm thickness. No discrete uterine or endometrial abnormalities are appreciated. Right ovary is normal in appearance and color without evidence for torsion measuring 4.2 x 3.9 x 4.1 cm with 2.2 cm dominant follicle. Left ovary is normal in appearance and color without evidence for torsion measuring 2.8 x 2.2 x 2.3 cm. A 3.9 x 3.2 x 3.6 cm complex left paraovarian cyst with debris is identified. No pelvic fluid. Impression: 1. Normal appearance to the uterus and bilateral ovaries. 2. 3.9 cm left paraovarian cyst with internal debris is otherwise nonspecific in appearance. Electronically Signed by Gregory Morgan MD 04/05/2018 05:46 A
== END ==
LOC: M RAD 10:05
PROVIDERS: ATTEND Advanced Practice Midwife
DX: N94.6 Dysmenorrhea, unspecified (principal)

== ENCOUNTER → 2018-08-22 | Outpatient (CLI) | payer BC ==
[2018-08-28 10:07] LABS: URINE COTININE LEVEL None Detected (.); URINE NICOTINE LEVEL None Detected (.)
== END ==
LOC: M LRY 08:49
PROVIDERS: ATTEND Surgery
DX: Z01.812 Encounter for preprocedural laboratory examination (principal); E66.01 Morbid (severe) obesity due to excess calories; F17.210 Nicotine dependence, cigarettes, uncomplicated; F18.10 Inhalant abuse, uncomplicated
CPT/HCPCS: 36415; G0480

== ENCOUNTER → 2018-10-26 | Outpatient (CLI) | payer BC ==
[2018-10-26 07:23] LABS: BASO % 0.8 % (0.0-1.0); EOS # 0.2 10^3/uL (0.0-0.50); EOS % 4.5 % (0.0-3.0); HEMATOCRIT 36.8 % (36.0-47.0); HEMOGLOBIN 11.9 g/dl (12.0-15.5); LYMPH # 1.5 10^3/uL (1.5-4.5); LYMPH % 31.4 % (24.0-44.0); MEAN CORPUSCULAR HEMOGLOBIN 31.6 pg (27.0-33.0); MEAN CORPUSCULAR HGB CONC 32.3 g/dl (32.0-36.5); MEAN CORPUSCULAR VOLUME 97.6 fl (80.0-96.0); MONO # 0.5 10^3/uL (0.0-0.8); MONO % 10.4 % (0.0-5.0); NEUTROPHILS # 2.6 10^3/uL (1.8-7.7); NEUTROPHILS % 52.7 % (36.0-66.0); PLATELET COUNT, AUTOMATED 263 10^3/uL (150-450); RED BLOOD COUNT 3.77 10^6/uL (4.00-5.40); WHITE BLOOD COUNT 4.9 10^3/uL (4.0-10.0)
[2018-10-26 07:32] LABS: HEMATOCRIT 36.8 % (36.0-47.0)
[2018-10-26 07:41] LABS: ALBUMIN 3.8 GM/DL (3.2-5.2); ALT/SGPT 22 U/L (12-78); BILIRUBIN,TOTAL 0.3 MG/DL (0.2-1.0); BLOOD UREA NITROGEN 12 MG/DL (7-18); CALCIUM LEVEL 9.4 MG/DL (8.5-10.1); CARBON DIOXIDE LEVEL 26 MEQ/L (21-32); CHLORIDE LEVEL 108 MEQ/L (98-107); CREATININE FOR GFR 0.72 MG/DL (0.55-1.30); FERRITIN 17 NG/ML (8-252); GLOMERULAR FILTRATION RATE > 60.0 (>60); GLUCOSE, FASTING 100 MG/DL (70-100); IRON (FE) 75 UG/DL (50-170); PERCENT SATURATION 23.7 % (13.2-45.0); PHOSPHORUS LEVEL 3.5 MG/DL (2.5-4.9); SODIUM LEVEL 143 MEQ/L (136-145); TOTAL IRON BINDING CAPACITY 316 UG/DL (250-450); TOTAL PROTEIN 6.4 GM/DL (6.4-8.2)
[2018-10-26 10:17] LABS: HEMOGLOBIN A1c 4.4 %
[2018-10-26 10:24] LABS: VITAMIN B12 LEVEL 1882 PG/ML (247-911)
== END ==
LOC: M LAB 06:28
PROVIDERS: ATTEND Surgery
DX: K91.2 Postsurgical malabsorption, not elsewhere classified (principal); E55.9 Vitamin D deficiency, unspecified; Z94.84 Stem cells transplant status

== ENCOUNTER → 2019-01-02 | Outpatient (CLI) | payer BC ==
--- NOTE | 2019-01-02 15:20 | REP ---
REASON FOR EXAM: Chest pain. FINDINGS: The superior mediastinal structures are midline. The cardiac silhouette is unremarkable in size, shape, and position. The diaphragmatic surfaces of the lungs are regular, and the costophrenic angles are clear. The pulmonary mobley are clear. The imaged osseous structures are intact. IMPRESSION: There is no acute cardiopulmonary disease. Electronically Signed by Luis Dumont DO 01/02/2019 04:04 P
== END ==
LOC: M LRY 14:37
PROVIDERS: ATTEND Nurse Practitioner Family
DX: R07.9 Chest pain, unspecified (principal)

== ENCOUNTER → 2019-03-23 | Outpatient (CLI) | payer BC ==
[2019-03-23 20:36] LABS: BASO # 0.1 10^3/uL (0.0-0.2); BASO % 0.8 % (0.0-1.0); EOS # 0.4 10^3/uL (0.0-0.5); EOS % 5.5 % (0.0-3.0); HEMATOCRIT 39.2 % (36.0-47.0); HEMOGLOBIN 12.6 g/dl (12.0-15.5); LYMPH # 2.6 10^3/uL (1.5-5.0); LYMPH % 35.2 % (24.0-44.0); MEAN CORPUSCULAR HEMOGLOBIN 30.9 pg (27.0-33.0); MEAN CORPUSCULAR HGB CONC 32.1 g/dl (32.0-36.5); MEAN CORPUSCULAR VOLUME 96.1 fl (80.0-96.0); MONO # 0.5 10^3/uL (0.0-0.8); MONO % 6.1 % (0.0-5.0); NEUTROPHILS # 3.8 10^3/uL (1.5-8.5); NEUTROPHILS % 52.3 % (36.0-66.0); PLATELET COUNT, AUTOMATED 274 10^3/uL (150-450); RED BLOOD COUNT 4.08 10^6/uL (4.00-5.40); WHITE BLOOD COUNT 7.3 10^3/uL (4.0-10.0)
[2019-03-23 20:43] LABS: ALBUMIN 3.7 GM/DL (3.2-5.2); ALT/SGPT 25 U/L (12-78); BILIRUBIN,TOTAL 0.3 MG/DL (0.2-1.0); BLOOD UREA NITROGEN 12 MG/DL (7-18); CALCIUM LEVEL 8.9 MG/DL (8.5-10.1); CARBON DIOXIDE LEVEL 25 MEQ/L (21-32); CHLORIDE LEVEL 108 MEQ/L (98-107); CREATININE FOR GFR 0.79 MG/DL (0.55-1.30); FERRITIN 11 NG/ML (8-252); GLOMERULAR FILTRATION RATE > 60.0 (>60); GLUCOSE, FASTING 84 MG/DL (70-100); IRON (FE) 95 UG/DL (50-170); PERCENT SATURATION 22.4 % (13.2-45.0); PHOSPHORUS LEVEL 3.4 MG/DL (2.5-4.9); POTASSIUM SERUM 4.1 MEQ/L (3.5-5.1); SODIUM LEVEL 141 MEQ/L (136-145); TOTAL IRON BINDING CAPACITY 424 UG/DL (250-450); TOTAL PROTEIN 6.7 GM/DL (6.4-8.2)
[2019-03-23 20:51] LABS: VITAMIN B12 LEVEL 773 PG/ML (247-911)
[2019-03-23 20:52] LABS: FOLATE > 24.0 NG/ML (>5.4)
[2019-03-23 20:54] LABS: HEMOGLOBIN A1c 4.8 %
== END ==
LOC: M WUC 16:33
PROVIDERS: ATTEND Physician Assistant
DX: K91.2 Postsurgical malabsorption, not elsewhere classified (principal); Z98.84 Bariatric surgery status; E55.9 Vitamin D deficiency, unspecified

== ENCOUNTER → 2019-07-06 | Outpatient (REF) | payer BC | LOC: M LAB REF 17:26 | PROVIDERS: ATTEND Dermatology | DX: D17.9 Benign lipomatous neoplasm, unspecified (principal) ==

== ENCOUNTER → 2019-07-20 | Outpatient (CLI) | payer BC ==
[2019-07-20 12:11] LABS: FOLLICLE STIMULATING HORMONE 2.2 mIU/mL; FREE T4 1.01 NG/DL (0.76-1.46); LUTEINIZING HORMONE 1.1 mIU/mL; PROLACTIN 4.1 NG/ML; THYROID STIMULATING HORMONE 0.519 uIU/ML (0.358-3.740)
[2019-07-20 13:45] LABS: HEMOGLOBIN A1c 4.7 %
[2019-07-26 00:09] LABS: 17 HYDROXY PROGESTERONE 187 ng/dL (.); INSULIN FREE 2.9 uU/mL (.); INSULIN TOTAL2 2.9 uU/mL (.); TESTOSTERONE FREE (DIRECT) 6.3 pg/mL (0.0-4.2)
== END ==
LOC: M WUC 09:31
PROVIDERS: ATTEND Advanced Practice Midwife
DX: E28.2 Polycystic ovarian syndrome (principal)

== ENCOUNTER → 2019-08-29 | Outpatient (REF) | payer BC ==
[2019-08-29 21:19] LABS: APPEARANCE, URINE HAZY (CLEAR); BACTERIA, URINE AUTO NEGATIVE (NEGATIVE); BILIRUBIN, URINE AUTO NEGATIVE (NEGATIVE); BLOOD, URINE BLOOD NEGATIVE (NEGATIVE); COLOR, URINE YELLOW (YELLOW); GLUCOSE, URINE (UA) AUTO NEGATIVE (NEGATIVE); KETONE, URINE AUTO TRACE mg/dL (NEGATIVE); LEUKOCYTE ESTERASE, URINE AUTO TRACE (NEGATIVE); MUCUS, URINE SMALL (NEGATIVE); NITRITE, URINE AUTO NEGATIVE (NEGATIVE); PROTEIN, URINE AUTO NEGATIVE (NEGATIVE); RBC, URINE AUTO 4 /HPF (0-3); SPECIFIC GRAVITY URINE AUTO 1.019 (1.002-1.035); SQUAMOUS EPITHELIAL CELL UR AU 0 /HPF (0-6); TRANSITIONAL EPITHELIAL AUTO 1 /HPF; UROBILINOGEN, URINE AUTO 0.2 mg/dL (0.0-2.0); WBC, URINE AUTO 22 /HPF (0-3)
== END ==
LOC: M SFHCPLAZ 16:17
PROVIDERS: ATTEND Family Medicine
DX: R30.0 Dysuria (principal)

== ENCOUNTER 2019-10-31 15:56 | Emergency (ER) | payer BC ==
[2019-10-31] MEDS ORDERED: MORPHINE 4 MG/ML 1ML VIAL/SYRINGE (J2270) ONE (16:36)
[2019-10-31] MEDS ORDERED: MORPHINE 4 MG/ML 1ML VIAL/SYRINGE (J2270) As Ordered ONE (16:36)
[2019-11-01] MEDS ORDERED: POTASSIUM CHLORIDE 10 MEQ SR TABLET ONE (23:01)
[2019-11-01] MEDS ORDERED: POTASSIUM CHLORIDE 10 MEQ SR TABLET As Ordered ONE (23:01)
[2019-12-16 13:35] LABS: BASO % 0.3 % (0.0-1.0); EOS % 0.4 % (0.0-3.0); HEMATOCRIT 35.6 % (36.0-47.0); HEMOGLOBIN 12.5 g/dl (12.0-15.5); LYMPH # 1.2 10^3/uL (1.5-5.0); MEAN CORPUSCULAR HGB CONC 35.1 g/dl (32.0-36.5); MEAN CORPUSCULAR VOLUME 93.9 fl (80.0-96.0); MONO # 1.1 10^3/uL (0.0-0.8); MONO % 15.7 % (0.0-5.0); NEUTROPHILS # 4.6 10^3/uL (1.5-8.5); NEUTROPHILS % 66.2 % (36.0-66.0); PLATELET COUNT, AUTOMATED 199 10^3/uL (150-450); RED BLOOD COUNT 3.79 10^6/uL (4.00-5.40)
[2019-12-16 13:46] LABS: APPEARANCE, URINE CLEAR (CLEAR); BACTERIA, URINE AUTO NEGATIVE (NEGATIVE); BILIRUBIN, URINE AUTO NEGATIVE (NEGATIVE); BLOOD, URINE BLOOD NEGATIVE (NEGATIVE); COLOR, URINE YELLOW (YELLOW); GLUCOSE, URINE (UA) AUTO NEGATIVE (NEGATIVE); KETONE, URINE AUTO TRACE mg/dL (NEGATIVE); LEUKOCYTE ESTERASE, URINE AUTO TRACE (NEGATIVE); NITRITE, URINE AUTO NEGATIVE (NEGATIVE); PROTEIN, URINE AUTO NEGATIVE (NEGATIVE); RBC, URINE AUTO 0 /HPF (0-3); SPECIFIC GRAVITY URINE AUTO 1.008 (1.002-1.035); SQUAMOUS EPITHELIAL CELL UR AU 1 /HPF (0-6); UROBILINOGEN, URINE AUTO 0.2 mg/dL (0.0-2.0); WBC, URINE AUTO 6 /HPF (0-3)
[2020-01-19 08:53] LABS: ALBUMIN 3.4 GM/DL (3.2-5.2); ALT/SGPT 127 U/L (12-78); BILIRUBIN,DIRECT 0.1 MG/DL (0.0-0.2); BILIRUBIN,TOTAL 0.3 MG/DL (0.2-1.0); BLOOD UREA NITROGEN 8 MG/DL (7-18); CALCIUM LEVEL 8.8 MG/DL (8.5-10.1); CARBON DIOXIDE LEVEL 27 MEQ/L (21-32); CHLORIDE LEVEL 103 MEQ/L (98-107); CREATININE FOR GFR 0.54 MG/DL (0.55-1.30); GLOMERULAR FILTRATION RATE > 60.0 (>60); GLUCOSE, FASTING 81 MG/DL (70-100); HCG, SERUM QUANTITATIVE 61911 MIU/ML; POTASSIUM SERUM 3.6 MEQ/L (3.5-5.1); SODIUM LEVEL 136 MEQ/L (136-145); TOTAL PROTEIN 6.5 GM/DL (6.4-8.2)
== END 2019-10-31 21:07 | disposition home or self-care (01) ==
LOC: M ED 15:56
DX: O23.41 Unspecified infection of urinary tract in pregnancy, first trimester (principal); O26.611 Liver and biliary tract disorders in pregnancy, first trimester; Z3A.01 Less than 8 weeks gestation of pregnancy; O99.841 Bariatric surgery status complicating pregnancy, first trimester; Z79.899 Other long term (current) drug therapy
CPT/HCPCS: 76705; 76775; 80048; 80076; 81001; 84702; 85025; 87086; 96374; 99284; J2270

== ENCOUNTER → 2019-11-10 | Outpatient (CLI) | payer BC | LOC: M LAB 07:03 | PROVIDERS: ATTEND Obstetrics & Gynecology Reproductive Endocrinology | DX: E28.9 Ovarian dysfunction, unspecified (principal) ==

== ENCOUNTER → 2019-12-01 | Outpatient (CLI) | payer BC | LOC: M LAB 07:05 | PROVIDERS: ATTEND Obstetrics & Gynecology Reproductive Endocrinology | DX: E28.9 Ovarian dysfunction, unspecified (principal) ==

== ENCOUNTER → 2019-12-08 | Outpatient (CLI) | payer BC | LOC: M LAB 07:04 | PROVIDERS: ATTEND Obstetrics & Gynecology Reproductive Endocrinology | DX: O02.1 Missed abortion (principal); Z3A.00 Weeks of gestation of pregnancy not specified ==

== ENCOUNTER → 2020-01-02 | Outpatient (CLI) | payer BC ==
[2020-01-02 11:17] LABS: ESTRADIOL 163.9 PG/ML; PROGESTERONE 13.64 NG/ML
== END ==
LOC: M LAB 06:56
PROVIDERS: ATTEND Obstetrics & Gynecology Reproductive Endocrinology
DX: E28.9 Ovarian dysfunction, unspecified (principal)

== ENCOUNTER → 2020-01-08 | Outpatient (CLI) | payer BC ==
[2020-01-08 11:21] LABS: PROGESTERONE 8.18 NG/ML
== END ==
LOC: M LAB 06:56
PROVIDERS: ATTEND Obstetrics & Gynecology Reproductive Endocrinology
DX: Z32.00 Encounter for pregnancy test, result unknown (principal)

== ENCOUNTER → 2020-01-29 | Outpatient (CLI) | payer BC ==
[2020-01-29 09:43] LABS: ESTRADIOL 67.7 PG/ML; PROGESTERONE 10.75 NG/ML
== END ==
LOC: M LAB 07:03
PROVIDERS: ATTEND Obstetrics & Gynecology Reproductive Endocrinology
DX: E28.9 Ovarian dysfunction, unspecified (principal)

== ENCOUNTER → 2020-02-05 | Outpatient (CLI) | payer BC ==
[2020-02-05 10:03] LABS: HCG, SERUM QUANTITATIVE < 1.0 MIU/ML
[2020-02-05 12:00] LABS: PROGESTERONE 14.76 NG/ML
== END ==
LOC: M LAB 07:02
PROVIDERS: ATTEND Obstetrics & Gynecology Reproductive Endocrinology
DX: Z32.00 Encounter for pregnancy test, result unknown (principal)

== ENCOUNTER → 2020-02-28 | Outpatient (CLI) | payer BC ==
[2020-02-28 08:03] LABS: ESTRADIOL 133.2 PG/ML; PROGESTERONE 9.28 NG/ML
== END ==
LOC: M LAB 07:04
PROVIDERS: ATTEND Obstetrics & Gynecology Reproductive Endocrinology
DX: E28.9 Ovarian dysfunction, unspecified (principal)

== ENCOUNTER → 2020-03-06 | Outpatient (CLI) | payer BC ==
[2020-03-06 10:21] LABS: PROGESTERONE 18.06 NG/ML
== END ==
LOC: M LAB 06:59
PROVIDERS: ATTEND Obstetrics & Gynecology Reproductive Endocrinology
DX: Z32.00 Encounter for pregnancy test, result unknown (principal)

== ENCOUNTER → 2020-03-08 | Outpatient (CLI) | payer BC ==
[2020-03-08 07:45] LABS: THYROID STIMULATING HORMONE 1.79 uIU/ML (0.358-3.740)
[2020-03-08 09:04] LABS: PROGESTERONE 18.57 NG/ML
[2020-03-08 09:06] LABS: ESTRADIOL 171.3 PG/ML
== END ==
LOC: M LAB 06:49
PROVIDERS: ATTEND Obstetrics & Gynecology Reproductive Endocrinology
DX: Z32.01 Encounter for pregnancy test, result positive (principal)

== ENCOUNTER → 2020-03-11 | Outpatient (CLI) | payer BC ==
[2020-03-11 13:04] LABS: PROGESTERONE 14.36 NG/ML
[2020-03-11 13:05] LABS: ESTRADIOL 194.2 PG/ML
== END ==
LOC: M LAB 06:58
PROVIDERS: ATTEND Obstetrics & Gynecology Reproductive Endocrinology
DX: Z32.01 Encounter for pregnancy test, result positive (principal)

== ENCOUNTER → 2020-04-22 | Outpatient (CLI) | payer BC | LOC: M LAB 07:12 | PROVIDERS: ATTEND Obstetrics & Gynecology Reproductive Endocrinology | DX: O09.00 Supervision of pregnancy with history of infertility, unspecified trimester (principal); Z3A.00 Weeks of gestation of pregnancy not specified ==

== ENCOUNTER → 2020-05-09 | Outpatient (REF) | payer BC ==
[~2020-05-09] MED LIST changes: +CEPH500C PO
== END ==
LOC: M PLALAB 15:30
PROVIDERS: ATTEND Obstetrics & Gynecology
DX: Z3A.12 12 weeks gestation of pregnancy (principal)

== ENCOUNTER 2020-05-13 16:54 | Emergency (ER) | payer BC ==
[~2020-05-13] VITALS: Ht 177.8 cm; Wt 86.9 kg
[~2020-05-13 16:54] MED LIST changes: -CEPH500C PO
--- OUTSIDE RECORDS SUMMARY | 2020-05-13 17:03 | CCD ---
Author Author [facility] Organization [facility] Address Unknown Phone Unavailable Support Name Relationship Address Phone [facility] [place] [address] SSV* Next Of Kin [address] [place] [address] [facility] Next Of [address] [place] [address] [facility] [place] [address] [facility] [place] [address] - [employer] Next Of [facility] [address] [place] [address] KARLO MEEK Next Of [address] [address] Karlo Meek [address] [address] [phone] Re-disclosure Warning The records that you are about to access may contain information from federally-assisted alcohol or drug abuse programs. If such information is present, then the following federally mandated warning applies: This information has been disclosed to you from records protected by federal confidentiality rules (42 CFR part 2). The federal rules prohibit you from making any further disclosure of this information unless further disclosure is expressly permitted by the written consent of the person to whom it pertains or as otherwise permitted by 42 CFR part 2. A general authorization for the release of medical or other information is NOT sufficient for this purpose. The Federal rules restrict any use of the information to criminally investigate or prosecute any alcohol or drug abuse patient.The records that you are about to access may contain highly sensitive health information, the redisclosure of which is protected by Article 27-F of the [place] State Public Health law. If you continue you may have access to information: Regarding HIV / AIDS; Provided by facilities licensed or operated by the [facility] Office of Mental Health; or Provided by the [facility] Office for People With Developmental Disabilities. If such information is present, then the following [facility] mandated warning applies: This information has been disclosed to you from confidential records which are protected by state law. State law prohibits you from making any further disclosure of this information without the specific written consent of the person to whom it pertains, or as otherwise permitted by law. Any unauthorized further disclosure in violation of state law may result in a fine or fpc sentence or both. A general authorization for the release of medical or other information is NOT sufficient authorization for further disc losure. Encounters Encounter Providers Location Date Indications Data Source(s ) [facility] [address] [place] [address] 10/03/2019 12:00:00 AM EDT eCW1 ([facility]) Unknown [address] [facility] [address] 08/30/2019 12:00:00 AM EDT eCW1 ([facility]) Unknown [address] [facility] [address] 08/29/2019 12:00:00 AM EDT eCW1 ([facility]) [facility] Dermatology [address] [place] [address] 07/25/2019 12:00:00 AM EDT eCW1 ([facility]) [facility] Dermatology [address] [place] [address] 07/18/2019 12:00:00 AM EDT eCW1 ([facility]) [facility] [address] [place] [address] 07/11/2019 12:00:00 AM EDT eCW1 ([facility]) [facility] [address] [facility] [address] 06/16/2019 12:00:00 AM EDT eCW1 ([facility]) Medications Medication Brand Name Start Date Product Form Dose Route Admi nistrative Instructions Pharmacy Instructions Status Indications Reaction Description Data Source(s) 100 mg 10/04/2019 12:00:00 AM EDT insert 12 INSERT ONE SUPPOSITORY VAGINALLY TWO TIMES A DAY INSERT ONE SUPPOSITORY VAGINALLY TWO TIMES A DAY SOLD: 10/04/2019 [facility] 100 mg 10/04/2019 12:00:00 AM EDT insert 51 INSERT ONE SUPPOSITORY VAGINALLY TWO TIMES A DAY INSERT ONE SUPPOSITORY VAGINALLY TWO TIMES A DAY SOLD: 10/10/2019 [facility] Sulfamethoxazole 800 MG / Trimethoprim 1 60 MG Oral Tablet Sulfamethoxazole- Trimethoprim 800-160 MG Sulfamethoxazole-Trimethoprim 800-160 MG 08/30/2019 12:00:00 AM EDT 1.0 {tablet} active Sulfamethoxazole-Trimethoprim 800-160 MG eCW1 ([facility]) Sulfamethoxazole 800 MG / Trimethoprim 1 60 MG Oral Tablet Sulfamethoxazole- Trimethoprim 800-160 MG Sulfamethoxazole-Trimethoprim 800-160 MG 08/30/2019 12:00:00 AM EDT 1.0 {tablet} active Sulfamethoxazole-Trimethoprim 800-160 MG eCW1 ([facility]) Levofloxacin 500 MG Oral Tablet Levofloxacin 500 MG 07/06/2019 1 2:00:00 AM EDT active 1 tablet eCW1 ([facility]) Levofloxacin 500 MG Oral Tablet Levofloxacin 500 MG 07/06/2019 1 2:00:00 AM EDT active 1 tablet eCW1 ([facility]) Levofloxacin 500 MG Oral Tablet Levofloxacin 500 MG 07/06/2019 1 2:00:00 AM EDT 1.0 {tablet} active Levofloxaci n 500 MG eCW1 ([facility]) Levofloxacin 500 MG Oral Tablet Levofloxacin 500 MG 07/06/2019 1 2:00:00 AM EDT 1.0 {tablet} active Levofloxaci n 500 MG eCW1 ([facility]) Vitamin B 12 0.5 MG Oral Tablet cyanocob alamin ([facility] VITAMIN B-12) 500 MCG tablet cyanocobalamin ([facility] VITAMIN B-12) 500 MCG tablet 10/01/2018 12:0 0:00 AM EDT 1000 ug Oral active Take 2 tablets (1,000 mc g total) by mouth daily [facility] Multiple Vitamins-Minerals (MULTIVITAMIN WITH MINERALS) jabari ryan [id number] 10/01/2018 12:00:00 AM EDT 2 {tbl} Oral active Take 2 tablets by mouth daily [facility] Insurance Providers Payer name Policy type / Coverage type Policy ID Covered alliance party ID Covered alliance party's relationship to alfaro Policy Alfaro Plan Information [employer] [place] 306/806 [id number] SP [id number] [employer] [place] 306/806 [id number] SP [id number] [employer] B [id number] S VYS [id number] [employer] [place] PPO 302/307 [id number] SP [id number] [employer]BS [id number] [employer] [id number] Ruthy VYS [id number] [employer] BCBS PI PI ANSI-Commercial [id number] ANSI-Commercial [id number] ANSI-Not a Secondary Insurance [id number] ANSI-Commercial [id number] ANSI-Commercial [id number] ANSI-Commercial [id number] ANSI-Not a Secondary Insurance [id number] ANSI-Commercial [id number] ANSI-Not a Secondary Insurance [id number] ANSI-Commercial [id number] ANSI-Commercial [id number] ANSI-Commercial [id number] [employer] [place] P[place] 302/307 [id number] SP [id number] [employer] Maintenance Organization (HMO) [id number] Self [id number] ANSI-Commercial [id number] ANSI-Commercial [id number] ANSI-Commercial [id number] ANSI-Not a Secondary Insurance [id number] MEDICAID [id number] SP [id number] [employer] [place] 306/806 [id number] SP [id number] MEMIC SSV NE [id number] SP [id number] MEDICAID [id number] SP [id number] MEDICAID M [id number] S [id number] MEDICAID M [id number] S [id number] MEDICAID [id number] SP [id number] MEDICAID M [id number] S [id number] MEMICSSV W/C [id number] SP [id number] MEMIC SSV W/C [id number] SP [id number] MEMIC SSV W/C UNAVAILABLE SP UNAV AILABLE [place] PPO 302/307 [id number] SP [id number] [facility] [place] O [id number] S [id number] MIHCAEL [id number] SP [id number] SELF PAY UNAVAILABLE SP UNAVAILA BLE [id number] Problems, Conditions, and Diagnoses Code Display Name Description Problem Type Effective Dates Data Source(s) E28.2 Polycystic ovaries Polycystic ovarian syndrome Problem 07/11/2019 12:00:00 AM EDT eCW1 ([facility]) E28.2 Polycystic ovaries Polycystic ovarian syndrome Problem 07/11/2019 12:00:00 AM EDT eCW1 ([facility]) Surgeries/Procedures Procedure Description Date Indications Data Source(s) EXC TR-EXT B9 GEGE > 4.0 CM 07/06/2019 12:00:00 AM EDT eCW1 ([facility]) INTMD RPR S/A/T/EXT 2.6-7.5 07/06/2019 12:00:00 AM EDT eCW1 ([facility]) Results ID Date Data Source INSULIN FREE & TOTAL 07/20/2019 12:00:00 AM EDT eCW1 ([facility]) Name Value Range Interpretation Code Description Data Wanda rce(s) Supporting Document(s) 2.9 . INSULIN TOTAL2 eCW1 ([facility]) 2.9 . INSULIN FREE eCW1 ([facility]) ID Date Data Source TESTOSTERONE FREE & TOTAL 07/20/2019 12:00:00 AM EDT eCW1 ([facility]) Name Value Range Interpretation Code Description Data Wanda rce(s) Supporting Document(s) 6.3 0.0-4.2 TESTOSTERONE FREE (DIRECT ) eCW1 ([facility]) 30.0 8-48 TESTOSTERONE TOTAL FOR T&D eCW 1 ([facility]) ID Date Data Source 17 HYDROXY PROGESTERONE 07/20/2019 12:00:00 AM EDT eCW1 ([facility]) Name Value Range Interpretation Code Description Data Wanda rce(s) Supporting Document(s) 187 . 17 HYDROXY PROGESTERONE eCW1 ( [facility]) ID Date Data Source Dehydroepiandrosterone Sulfate 07/20/2019 12:00:00 AM EDT eC W1 ([facility]) Name Value Range Interpretation Code Description Data Wanda rce(s) Supporting Document(s) Dehydroepiandrosterone sulfate (DHEA-S) [Mass/volume] in Ser um or Plasma 259.0 84.8-378.0 DEHYDROEPIANDROSTERONE SULFATE eCW1 ([facility]) ID Date Data Source [id number] 07/20/2019 12:00:00 AM EDT eCW1 ([facility]) Name Value Range Interpretation Code Description Data Wanda rce(s) Supporting Document(s) Hemoglobin A1c/Hemoglobin.total in Blood 4.7 HEMOGLOBIN A1c eCW1 ([facility]) ID Date Data Source PROLACTIN 07/20/2019 12:00:00 AM EDT eCW1 ([facility]) Name Value Range Interpretation Code Description Data Wanda rce(s) Supporting Document(s) 4.1 PROLACTIN eCW1 ([facility]) ID Date Data Source FREE T4 & TSH PANEL 07/20/2019 12:00:00 AM EDT eCW1 ([facility]) Name Value Range Interpretation Code Description Data Wanda rce(s) Supporting Document(s) 0.519 0.358-3.740 THYROID STIMULATING HORM ONE eCW1 ([facility]) 1.01 0.76-1.46 FREE T4 eCW1 ([facility]) ID Date Data Source FSH & LH EVAL 07/20/2019 12:00:00 AM EDT eCW1 ([facility]) Name Value Range Interpretation Code Description Data Wanda rce(s) Supporting Document(s) 1.1 LUTEINIZING HORMONE eCW1 ([facility]) 2.2 FOLLICLE STIMULATING HORMONE e CW1 ([facility]) ID Date Data Source GLUCOSE, FASTING 07/20/2019 12:00:00 AM EDT eCW1 ([facility]) Name Value Range Interpretation Code Description Data Wanda rce(s) Supporting Document(s) 81 70-100 GLUCOSE, FASTING eCW1 ([facility]) Procedure Social History Code Duration Value Status Description Data Source(s ) Smoking 07/11/2019 12:00:00 AM EDT Never Smoker completed Never S moker eCW1 ([facility]) Smoking 07/11/2019 12:00:00 AM EDT Never Smoker completed Never S moker eCW1 ([facility]) Vital Signs ID Date Data Source UNK Name Value Range Interpretation Code Description Data Source(s) Diastolic blood pressure 74 mm[Hg] 74 mm[Hg] eCW1 ([facility]) Systolic blood pressure 126 mm[Hg] 126 mm[Hg] e CW1 ([facility]) Body mass index (BMI) [Ratio] 27.29 kg/m2 27.29 kg/m2 W1 ([facility]) Body height 69 [in_us] 69 [in_us] eCW1 ([facility]) Body weight Measured 184.8 [lb_av] 184.8 [lb_av ] W1 ([facility]) Body mass index (BMI) [Ratio] 27.76 kg/m2 27.76 kg/m2 W1 ([facility]) Body height 69 [in_us] 69 [in_us] eCW1 ([facility]) Body weight Measured 188 [lb_av] 188 [lb_av] eC W1 ([facility]) Patient Treatment Plan of Care Planned Activity Planned Date Details Description Data Source (s) Sulfamethoxazole 800 MG / Trimethoprim 160 MG Oral Tab let 08/30/2019 12:00:00 AM EDT eCW1 ([facility]) Sulfamethoxazole 800 MG / Trimethoprim 160 MG Oral Tab let 08/30/2019 12:00:00 AM EDT eCW1 ([facility]) Levofloxacin 500 MG Oral Tablet 07/06/2019 12:00:00 AM EDT eCW1 ([facility]) Multiple Vitamins-Minerals (MULTIVITAMIN WITH MINERALS ) tablet 10/01/2018 12:00:00 AM EDT [facility] Vitamin B 12 0.5 MG Oral Tablet 10/01/2018 12:00:00 AM EDT [facility]
[2020-05-13 17:53] LABS: BASO % 0.5 % (0.0-1.0); EOS # 0.1 10^3/uL (0.0-0.5); EOS % 1.4 % (0.0-3.0); HEMATOCRIT 35.6 % (36.0-47.0); HEMOGLOBIN 12.4 g/dl (12.0-15.5); LYMPH # 2.1 10^3/uL (1.5-5.0); LYMPH % 33.8 % (24.0-44.0); MEAN CORPUSCULAR HEMOGLOBIN 32.5 pg (27.0-33.0); MEAN CORPUSCULAR HGB CONC 34.8 g/dl (32.0-36.5); MEAN CORPUSCULAR VOLUME 93.2 fl (80.0-96.0); MONO # 0.6 10^3/uL (0.0-0.8); MONO % 9.2 % (2.0-8.0); NEUTROPHILS # 3.4 10^3/uL (1.5-8.5); NEUTROPHILS % 54.8 % (36.0-66.0); PLATELET COUNT, AUTOMATED 218 10^3/uL (150-450); RED BLOOD COUNT 3.82 10^6/uL (4.00-5.40); WHITE BLOOD COUNT 6.2 10^3/uL (4.0-10.0)
[2020-05-13 18:02] LABS: APPEARANCE, URINE CLEAR (CLEAR); BACTERIA, URINE AUTO 1+ (NEGATIVE); BILIRUBIN, URINE AUTO NEGATIVE (NEGATIVE); BLOOD, URINE BLOOD 2+ (NEGATIVE); COLOR, URINE COLORLESS (YELLOW); GLUCOSE, URINE (UA) AUTO NEGATIVE (NEGATIVE); KETONE, URINE AUTO NEGATIVE (NEGATIVE); LEUKOCYTE ESTERASE, URINE AUTO NEGATIVE (NEGATIVE); NITRITE, URINE AUTO NEGATIVE (NEGATIVE); PROTEIN, URINE AUTO NEGATIVE (NEGATIVE); RBC, URINE AUTO 2 /HPF (0-3); SPECIFIC GRAVITY URINE AUTO 1.004 (1.002-1.035); SQUAMOUS EPITHELIAL CELL UR AU 0 /HPF (0-6); UROBILINOGEN, URINE AUTO 0.2 mg/dL (0.0-2.0); WBC, URINE AUTO 1 /HPF (0-3)
--- OUTSIDE RECORDS SUMMARY | 2020-05-13 18:32 | CCD ---
Author Author [facility] Organization [facility] Address Unknown Phone Unavailable Support Name Relationship Address Phone [facility] [place] [address] SSV* Next Of Kin [address] [place] [address] [facility] Next Of [address] [place] [address] [facility] [place] [address] [facility] [place] [address] - [employer] Next Of [facility] [address] [place] [address] KARLO MEEK Next Of [address] [address] Karlo Meek [address] [address] [phone] Re-disclosure Warning The records that you are [...] is protected by Article 27-F of the [place] State Public Health law. If you continue you may have access to information: Regarding HIV / AIDS; Provided by facilities licensed or operated by the [facility] Office of Mental Health; or Provided by the [facility] Office for People With Developmental Disabilities. If such information is present, then the following [facility] mandated warning applies: This information has been [...] law may result in a fine or skilled nursing sentence or both. A general authorization for the release of medical or other information is NOT sufficient authorization for further disc losure. Encounters Encounter Providers Location Date Indications Data Source(s ) [facility] Women[facility]ness and Breast Care [address] [place] [address] 10/03/2019 12:00:00 AM EDT eCW1 ([facility]) Unknown [address] [facility] [id number] 08/30/2019 12:00:00 AM EDT eCW1 ([facility]) Unknown [address] [facility] [id number] 08/29/2019 12:00:00 AM EDT eCW1 ([facility]) [facility] Dermatology [address] [place] [address] 07/25/2019 12:00:00 AM EDT eCW1 ([facility]) [facility] Dermatology [address] [place] [address] 07/18/2019 12:00:00 AM EDT eCW1 ([facility]) [facility] [address] [place] [address] 07/11/2019 12:00:00 AM EDT eCW1 ([facility]) [facility] [address] [facility] [address] 06/16/2019 12:00:00 AM EDT eCW1 ([facility]) Medications Medication Brand Name Start Date Product [...] 1.0 {tablet} active Sulfamethoxazole-Trimethoprim 800-160 MG eCW1 ([facility]) Sulfamethoxazole 800 MG / Trimethoprim 1 60 MG Oral Tablet Sulfamethoxazole- Trimethoprim 800-160 MG Sulfamethoxazole-Trimethoprim 800-160 MG 08/30/2019 12:00:00 AM EDT 1.0 {tablet} active Sulfamethoxazole-Trimethoprim 800-160 MG eCW1 ([facility]) Levofloxacin 500 MG Oral Tablet Levofloxacin 500 MG 07/06/2019 1 2:00:00 AM EDT active 1 tablet eCW1 ([facility]) Levofloxacin 500 MG Oral Tablet Levofloxacin 500 MG 07/06/2019 1 2:00:00 AM EDT active 1 tablet eCW1 ([facility]) Levofloxacin 500 MG Oral Tablet Levofloxacin 500 MG 07/06/2019 1 2:00:00 AM EDT 1.0 {tablet} active Levofloxaci n 500 MG eCW1 ([facility]) Levofloxacin 500 MG Oral Tablet Levofloxacin 500 MG 07/06/2019 1 2:00:00 AM EDT 1.0 {tablet} active Levofloxaci n 500 MG eCW1 ([facility]) Vitamin B 12 0.5 MG Oral Tablet cyanocob alamin ([facility] VITAMIN B-12) 500 MCG tablet cyanocobalamin ([facility] VITAMIN B-12) 500 MCG tablet 10/01/2018 12:0 0:00 AM EDT 1000 ug Oral active Take 2 tablets (1,000 mc g total) by mouth daily [facility] Multiple Vitamins-Minerals (MULTIVITAMIN WITH MINERALS) jabari ryan [id number] 10/01/2018 12:00:00 AM EDT 2 {tbl} Oral active Take [address] tablets by mouth daily [facility] Insurance Providers Payer name Policy type / Coverage type Policy ID Covered democrat ID Covered democrat's relationship to alfaro Policy Alfaro Plan Information [employer] [place] 306/806 [id number] SP [id number] [employer] [place] 306/806 [id number] SP [id number] [employer] B [id number] S VYS [id number] [place] [place] PPO 302/307 [id number] SP [id number] [employer]BS [id number] [employer] [id number] [place] [id number] [employer] BCBS PI PI ANSI-Commercial [id number] ANSI-Commercial [id number] ANSI-Not a Secondary Insurance [id number] ANSI-Commercial [id number] ANSI-Commercial [id number] ANSI-Commercial [id number] ANSI-Not a Secondary Insurance [id number] ANSI-Commercial [id number] ANSI-Not a Secondary Insurance [id number] ANSI-Commercial [id number] ANSI-Commercial [id number] ANSI-Commercial [id number] [place] P[place] 302/307 [id number] SP [id number] [employer] Maintenance Organization (HMO) [id number] Self [id number] ANSI-Commercial [id number] ANSI-Commercial [id number] ANSI-Commercial [id number] ANSI-Not a Secondary Insurance [id number] MEDICAID [id number] SP [id number] [place] 306/806 [id number] SP [id number] MEMIC [place]SV [place] [id number] SP [id number] MEDICAID [id number] SP [id number] MEDICAID M [id number] S [id number] MEDICAID M [id number] S [id number] MEDICAID [id number] SP [id number] MEDICAID M [id number] S [id number] MEMICSSV W/C [id number] SP [id number] MEMIC SSV W/C [id number] SP [id number] MEMIC SSV W/C UNAVAILABLE SP UNAV AILABLE [place] PPO 302/307 [id number] SP [id number] [facility] [place] O [id number] S [id number] MICHAEL [id number] SP [id number] SELF PAY UNAVAILABLE SP UNAVAILA BLE [id number] Problems, Conditions, and Diagnoses Code Display Name Description Problem Type Effective Dates Data Source(s) E28.2 Polycystic ovaries Polycystic ovarian syndrome Problem 07/11/2019 12:00:00 AM EDT eCW1 ([facility]) E28.2 Polycystic ovaries Polycystic ovarian syndrome Problem 07/11/2019 12:00:00 AM EDT eCW1 ([facility]) Surgeries/Procedures Procedure Description Date Indications Data Source(s) EXC TR-EXT B9 GEGE > 4.0 CM 07/06/2019 12:00:00 AM EDT eCW1 ([facility]) INTMD RPR S/A/T/EXT 2.6-7.5 07/06/2019 12:00:00 AM EDT eCW1 ([facility]) Results ID Date Data Source INSULIN FREE & TOTAL 07/20/2019 12:00:00 AM EDT eCW1 ([facility]) Name Value Range Interpretation Code Description Data Wanda rce(s) Supporting Document(s) 2.9 . INSULIN TOTAL2 eCW1 ([facility]) 2.9 . INSULIN FREE eCW1 ([facility]) ID Date Data Source TESTOSTERONE FREE & TOTAL 07/20/2019 12:00:00 AM EDT eCW1 ([facility]) Name Value Range Interpretation Code Description Data Wanda rce(s) Supporting Document(s) 6.3 0.0-4.2 TESTOSTERONE FREE (DIRECT ) eCW1 ([facility]) 30.0 8-48 TESTOSTERONE TOTAL FOR T&D eCW 1 ([facility]) ID Date Data Source 17 HYDROXY PROGESTERONE 07/20/2019 12:00:00 AM EDT eCW1 ([facility]) Name Value Range Interpretation Code Description Data Wanda rce(s) Supporting Document(s) 187 . 17 HYDROXY PROGESTERONE eCW1 ( [facility]) ID Date Data Source Dehydroepiandrosterone Sulfate 07/20/2019 12:00:00 AM EDT eC W1 ([facility]) Name Value Range Interpretation Code Description Data Wanda rce(s) Supporting Document(s) Dehydroepiandrosterone sulfate (DHEA-S) [Mass/volume] in Ser um or Plasma 259.0 84.8-378.0 DEHYDROEPIANDROSTERONE SULFATE eCW1 ([facility]) ID Date Data Source 4548-4 07/20/2019 12:00:00 AM EDT eCW1 ([facility]) Name Value Range Interpretation Code Description Data Wanda rce(s) Supporting Document(s) Hemoglobin A1c/Hemoglobin.total in Blood 4.7 HEMOGLOBIN A1c eCW1 ([facility]) ID Date Data Source PROLACTIN 07/20/2019 12:00:00 AM EDT eCW1 ([facility]) Name Value Range Interpretation Code Description Data Wanda rce(s) Supporting Document(s) 4.1 PROLACTIN eCW1 ([facility]) ID Date Data Source FREE T4 & TSH PANEL 07/20/2019 12:00:00 AM EDT eCW1 ([facility]) Name Value Range Interpretation Code Description Data Wanda rce(s) Supporting Document(s) 0.519 0.358-3.740 THYROID STIMULATING HORM ONE eCW1 ([facility]) 1.01 0.76-1.46 FREE T4 eCW1 ([facility]) ID Date Data Source FSH & LH EVAL 07/20/2019 12:00:00 AM EDT eCW1 ([facility]) Name Value Range Interpretation Code Description Data Wanda rce(s) Supporting Document(s) 1.1 LUTEINIZING HORMONE eCW1 ([facility]) 2.2 FOLLICLE STIMULATING HORMONE e CW1 ([facility]) ID Date Data Source GLUCOSE, FASTING 07/20/2019 12:00:00 AM EDT eCW1 ([facility]) Name Value Range Interpretation Code Description Data Wanda rce(s) Supporting Document(s) 81 70-100 GLUCOSE, FASTING eCW1 ([facility]) Procedure Social History Code Duration Value Status Description Data Source(s ) Smoking 07/11/2019 12:00:00 AM EDT Never Smoker completed Never S moker eCW1 ([facility]) Smoking 07/11/2019 12:00:00 AM EDT Never Smoker completed Never S moker eCW1 ([facility]) Vital Signs ID Date Data Source UNK Name Value Range Interpretation Code Description Data Source(s) Diastolic blood pressure 74 mm[Hg] 74 mm[Hg] eCW1 ([facility]) Systolic blood pressure 126 mm[Hg] 126 mm[Hg] e CW1 ([facility]) Body mass index (BMI) [Ratio] 27.29 kg/m2 27.29 kg/m2 W1 ([facility]) Body height 69 [in_us] 69 [in_us] eCW1 ([facility]) Body weight Measured 184.8 [lb_av] 184.8 [lb_av ] W1 ([facility]) Body mass index (BMI) [Ratio] 27.76 kg/m2 27.76 kg/m2 W1 ([facility]) Body height 69 [in_us] 69 [in_us] eCW1 ([facility]) Body weight Measured 188 [lb_av] 188 [lb_av] eC W1 ([facility]) Patient Treatment Plan of Care Planned Activity Planned Date Details Description Data Source (s) Sulfamethoxazole 800 MG / Trimethoprim 160 MG Oral Tab let 08/30/2019 12:00:00 AM EDT eCW1 ([facility]) Sulfamethoxazole 800 MG / Trimethoprim 160 MG Oral Tab let 08/30/2019 12:00:00 AM EDT eCW1 ([facility]) Levofloxacin 500 MG Oral Tablet 07/06/2019 12:00:00 AM EDT eCW1 ([facility]) Multiple Vitamins-Minerals (MULTIVITAMIN WITH MINERALS ) tablet 10/01/2018 12:00:00 AM EDT [facility] Vitamin B 12 0.5 MG Oral Tablet 10/01/2018 12:00:[address] [facility]
--- NOTE | 2020-05-13 19:22 | REPVR ---
PROCEDURE INFORMATION: Exam: US First Trimester, Transabdominal Exam date and time: 05/13/2020 6:30 PM Age: 34 years old Clinical indication: Lmp or gestational age (in weeks): 13 w 4 d; Other: Bleeding; ; Additional info: Vaginal bleeding TECHNIQUE: Imaging protocol: Real-time transabdominal obstetrical ultrasound of the maternal pelvis and a first trimester , less than 14 weeks 0 days, with image documentation. COMPARISON: No relevant prior studies available. FINDINGS: Gestation: There is a single live intrauterine gestation in variable presentation. Embryonic/ heart rate: heart motion was observed, with the 144 bpm. Placenta: There is an abnormal large complex area adjacent to the gestational sac at the in all os with heterogeneous echogenicity measuring 7.0 x 5.0 x 3.3 cm. This is of uncertain etiology but may represent a subchorionic hemorrhage. A 2nd area adjacent to the gestational sac more superiorly measures 4.7 x 1.7 x 2.2 cm with lenticular shaped, also concerning for subchorionic hemorrhage. Developing placenta. Amniotic fluid: Amniotic fluid is visually normal. BIOMETRY: Gestational age (AUA): 13 weeks 4 days Estimated due date (AUA): Estimated date of delivery based on current ultrasound is 11/14/2020. Estimated date of delivery based on last menstrual period is 11/14/2020. [place]-Rump length: [place]-rump length is 73.2 mm, which corresponds to 13 week 4 day gestation. MATERNAL: Uterus: Unremarkable. Cervix: The cervix is closed, measuring 3.1 cm Right adnexa: Right ovary not visualized due to shadowing bowel gas. Left adnexa: Left ovary not visualized due to shadowing bowel gas. Intraperitoneal space: No intraperitoneal free fluid. IMPRESSION: 1. Single live intrauterine gestation with estimated gestational age of 13 weeks 4 days. 2. Two large areas suspicious for subchorionic hemorrhage, the larger of which is at the internal cervical os. Recommend close interval follow-up. 3. Cervix is closed, measuring 3.1 cm. THIS REPORT CONTAINS FINDINGS THAT MAY BE CRITICAL TO PATIENT CARE. The findings were verbally communicated via telephone conference with KATHERINE COOPER at 7:22 PM EST on 05/13/2020. The findings were acknowledged and understood. Electronically signed by: Cierra Prado On 05/13/2020 19:22:39 PM
[2020-05-13 19:48] LABS: BLOOD UREA NITROGEN 9 MG/DL (7-18); CALCIUM LEVEL 8.8 MG/DL (8.5-10.1); CARBON DIOXIDE LEVEL 26 MEQ/L (21-32); CHLORIDE LEVEL 105 MEQ/L (98-107); CREATININE FOR GFR 0.42 MG/DL (0.55-1.30); GLOMERULAR FILTRATION RATE > 60.0 (>60); GLUCOSE, FASTING 82 MG/DL (70-100); HCG, SERUM QUANTITATIVE 10680 MIU/ML; POTASSIUM SERUM 3.6 MEQ/L (3.5-5.1); SODIUM LEVEL 139 MEQ/L (136-145)
[2020-05-13] MEDS ORDERED: CEPH500C PO (20:14)
[2020-05-13 20:45] VITALS: BP 124/62
--- NOTE | 2020-05-16 11:13 | ED PDOC ---
Post-Departure Follow-Up 1st trimester us faxed to ameena burt and vicenta horne for fu Monica Pate MD May 16, 2020 11:13
== END 2020-05-13 20:48 | disposition home or self-care (01) ==
LOC: M ED 16:54
DX: O20.0 Threatened abortion (principal); O26.852 Spotting complicating pregnancy, second trimester; O23.92 Unspecified genitourinary tract infection in pregnancy, second trimester; O46.92 Antepartum hemorrhage, unspecified, second trimester; Z3A.13 13 weeks gestation of pregnancy

== ENCOUNTER → 2020-05-22 | Outpatient (REF) ==
[~2020-05-22] MED LIST changes: +CEPH500C PO
== END ==
LOC: M LABSMTC 10:18
PROVIDERS: ATTEND Pediatrics
DX: Z11.52 Encounter for screening for COVID-19 (principal)

== ENCOUNTER → 2020-05-27 | Outpatient (CLI) | payer BC ==
[2020-05-27 08:07] LABS: ALBUMIN 3.3 GM/DL (3.2-5.2); ALT/SGPT 22 U/L (12-78); BILIRUBIN,TOTAL 0.4 MG/DL (0.2-1.0); BLOOD UREA NITROGEN 10 MG/DL (7-18); CALCIUM LEVEL 8.4 MG/DL (8.5-10.1); CARBON DIOXIDE LEVEL 27 MEQ/L (21-32); CHLORIDE LEVEL 106 MEQ/L (98-107); CREATININE FOR GFR 0.53 MG/DL (0.55-1.30); FERRITIN 11 NG/ML (8-252); GLOMERULAR FILTRATION RATE > 60.0 (>60); GLUCOSE, FASTING 85 MG/DL (70-100); IRON (FE) 166 UG/DL (50-170); PERCENT SATURATION 39.1 % (13.2-45.0); POTASSIUM SERUM 3.5 MEQ/L (3.5-5.1); SODIUM LEVEL 138 MEQ/L (136-145); TOTAL IRON BINDING CAPACITY 425 UG/DL (250-450); TOTAL PROTEIN 6.1 GM/DL (6.4-8.2)
[2020-05-27 09:31] LABS: FOLATE > 24.0 NG/ML; VITAMIN B12 LEVEL 592 PG/ML
== END ==
LOC: M LAB 06:52
PROVIDERS: ATTEND Nurse Practitioner Adult Health
DX: Z36.89 Encounter for other specified antenatal screening (principal)

== ENCOUNTER → 2021-03-24 | Outpatient (REF) | LOC: M LABSMTC 11:19 | PROVIDERS: ATTEND Family Medicine | DX: Z11.52 Encounter for screening for COVID-19 (principal) ==

== ENCOUNTER → 2022-03-17 | Outpatient (REF) ==
[2022-03-17 13:21] LABS: RSV AMPLIFICATION NEGATIVE (NEGATIVE)
== END ==
LOC: M LABSMTC 11:44
PROVIDERS: ATTEND Family Medicine
DX: Z11.52 Encounter for screening for COVID-19 (principal)

== ENCOUNTER → 2022-09-03 | Outpatient (CLI) | payer BC | LOC: M SOG 13:57 | PROVIDERS: ATTEND Student in an Organized Health Care Education/Training Program | DX: M25.511 Pain in right shoulder (principal) ==

== ENCOUNTER → 2022-09-25 | Outpatient (CLI) | payer BC | LOC: M PLARAD 07:46 | PROVIDERS: ATTEND Student in an Organized Health Care Education/Training Program | DX: M25.511 Pain in right shoulder (principal) ==

== ENCOUNTER → 2025-01-30 | Outpatient (CLI) | payer BC ==
[2025-01-30 09:27] LABS: BASO # 0.1 10^3/uL (0.0-0.2); BASO % 1.8 % (0.0-1.0); EOS # 0.2 10^3/uL (0.0-0.5); EOS % 6.2 % (0.0-3.0); LYMPH # 1.0 10^3/uL (1.5-5.0); LYMPH % 28.3 % (24.0-44.0); MONO # 0.4 10^3/uL (0.0-0.8); MONO % 12.4 % (2.0-8.0); NEUTROPHILS # 1.7 10^3/uL (1.5-8.5); NEUTROPHILS % 51.0 % (36.0-66.0); PLATELET COUNT, AUTOMATED 280 10^3/uL (150-450)
[2025-01-30 09:50] LABS: ALT/SGPT 12 U/L (7.0-40); AST/SGOT 22 U/L (<34); CALCIUM LEVEL 8.4 MG/DL (8.5-10.1); CARBON DIOXIDE LEVEL 27 MMOL/L (20-31); CHLORIDE LEVEL 104 MMOL/L (98-107); CREATININE FOR GFR 0.73 MG/DL (0.55-1.30); GLOMERULAR FILTRATION RATE > 90.0 (>60); IRON (FE) 12 UG/DL (50-170); PERCENT SATURATION 2.2 % (13.2-45.0); POTASSIUM SERUM 4.1 MMOL/L (3.5-5.1); SODIUM LEVEL 141 MMOL/L (136-145)
== END ==
LOC: M LAB 07:59
PROVIDERS: ATTEND Nurse Practitioner Family
DX: D50.9 Iron deficiency anemia, unspecified (principal); I10 Essential (primary) hypertension